=== PATIENT | female | born 1960 | race Caucasian/White ===

== ENCOUNTER 2018-12-11 11:06 | Emergency (ER) | payer MEDICARE ==
[~2018-12-11] VITALS: Ht 167.6 cm; Wt 110.3 kg
[2018-12-11] MEDS ORDERED: LAMO25TA4 (11:16)
[2018-12-11] MEDS ORDERED: GEOD80CA (11:16)
[2018-12-11] MEDS ORDERED: LEVO125T4 (11:16)
[2018-12-11] MEDS ORDERED: OMEP-221 (11:16)
[2018-12-11] MEDS ORDERED: NOVO1INJ4 (11:16)
[2018-12-11] MEDS ORDERED: TRAZ150T90 (11:16)
[2018-12-11] MEDS ORDERED: BD I1MIS10 (11:16)
[2018-12-11] MEDS ORDERED: SIMV40TA2 (11:16)
[2018-12-11] MEDS ORDERED: METF-791 (11:16)
[2018-12-11] MEDS ORDERED: VENL75CA47 (11:16)
[2018-12-11] MEDS ORDERED: LAMI25TA (11:16)
[2018-12-11] MEDS ORDERED: TRAZ300T2 (11:16)
[2018-12-11] MEDS ORDERED: JARD1TAB3 (11:16)
[2018-12-11] MEDS ORDERED: ASPIRIN 81 MG CHEW TABLET PO ONE (11:30)
[2018-12-11 11:53] LABS: BASO % 0.5 % (0.0-1.0); EOS # 0.2 10^3/uL (0.0-0.5); EOS % 2.2 % (0.0-3.0); HEMATOCRIT 40.6 % (36.0-47.0); LYMPH # 3.2 10^3/uL (1.5-5.0); LYMPH % 42.1 % (24.0-44.0); MEAN CORPUSCULAR HEMOGLOBIN 28.7 pg (27.0-33.0); MEAN CORPUSCULAR HGB CONC 34.5 g/dl (32.0-36.5); MEAN CORPUSCULAR VOLUME 83.4 fl (80.0-96.0); MONO # 0.5 10^3/uL (0.0-0.8); MONO % 7.1 % (0.0-5.0); NEUTROPHILS # 3.7 10^3/uL (1.5-8.5); NEUTROPHILS % 47.7 % (36.0-66.0); PLATELET COUNT, AUTOMATED 232 10^3/uL (150-450); RED BLOOD COUNT 4.87 10^6/uL (4.00-5.40); WHITE BLOOD COUNT 7.7 10^3/uL (4.0-10.0)
[2018-12-11 12:03] LABS: PROTHROMBIN TIME 12.9 SECONDS (11.8-14.0)
[2018-12-11 12:04] LABS: PARTIAL THROMBOPLASTIN TIME 24.7 SECONDS (25.0-38.4)
--- NOTE | 2018-12-11 12:21 | REP ---
Chest x-ray: Two views. History: Chest pain. Findings: Monitoring electrodes overlie the chest. Lungs are well inflated and clear. Pleural angles are sharp. Heart is not enlarged. There are degenerative changes in the thoracic spine. Impression: No active disease. Electronically Signed by Lev Ritter MD 12/11/2018 12:13 P
[2018-12-11 12:30] LABS: ALBUMIN 3.7 GM/DL (3.2-5.2); ALT/SGPT 45 U/L (12-78); BILIRUBIN,DIRECT < 0.1 MG/DL (0.0-0.2); BILIRUBIN,TOTAL 0.4 MG/DL (0.2-1.0); BLOOD UREA NITROGEN 19 MG/DL (7-18); CALCIUM LEVEL 9.1 MG/DL (8.5-10.1); CARBON DIOXIDE LEVEL 25 MEQ/L (21-32); CHLORIDE LEVEL 105 MEQ/L (98-107); CK-MB VALUE MASS 3.3 NG/ML (<3.6); CPK CREATINE PHOSPHOKINASE 349 U/L (26-192); CREATININE FOR GFR 1.15 MG/DL (0.55-1.30); GLOMERULAR FILTRATION RATE 51.6 (>51); GLUCOSE, FASTING 102 MG/DL (70-100); LIPASE 119 U/L (73-393); MB/CK RELATIVE INDEX 0.95 (< OR =4); POTASSIUM SERUM 3.9 MEQ/L (3.5-5.1); SODIUM LEVEL 138 MEQ/L (136-145); TOTAL PROTEIN 7.1 GM/DL (6.4-8.2); TROPONIN I < 0.02 NG/ML (< 0.10)
[2018-12-11 17:51] LABS: CK-MB VALUE MASS 3.1 NG/ML (<3.6); CPK CREATINE PHOSPHOKINASE 309 U/L (26-192); TROPONIN I < 0.02 NG/ML (< 0.10)
[2018-12-11 18:01] VITALS: BP 162/70
--- NOTE | 2018-12-11 19:25 | ECGEPIP ---
[place] - ED Test Date: 2018-12-11 Pat Name: PATIENCE LAWRENCE Department: Room: - Gender: Female Clothes Model: Usama WONG : 1960 Requested By: MILAGROS Rock Order Number: [id number] Reading MD: Melvin Dolan Measurements Intervals [place] Rate: 68 P: 27 LA: 180 QRS: -26 QRSD: 109 T: -7 QT: 405 QTc: 431 Interpretive Statements SINUS RHYTHM BORDERLINE LEFT AXIS DEVIATION NONSPECIFIC T WAVE ABNORMALITIES NO PRIORS FOR COMPARISON Electronically Signed on 12-11-2018 19:25:35 EDT by Melvin Dolan
--- NOTE | 2018-12-12 07:49 | ECGEPIP ---
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
== END 2018-12-11 18:10 | disposition home or self-care (01) ==
LOC: M ED 11:06
DX: R69 Illness, unspecified (principal); E11.9 Type 2 diabetes mellitus without complications; I10 Essential (primary) hypertension; K21.9 Gastro-esophageal reflux disease without esophagitis; F31.89 Other bipolar disorder; Z79.4 Long term (current) use of insulin; Z79.899 Other long term (current) drug therapy; Z88.2 Allergy status to sulfonamides; Z88.1 Allergy status to other antibiotic agents; Z88.8 Allergy status to other drugs, medicaments and biological substances

== ENCOUNTER 2019-12-20 15:41 | Inpatient (IN) | payer OTHER, MEDICARE ==
[~2019-12-20] VITALS: Ht 167.6 cm; Wt 94.8 kg
[~2019-12-20 15:41] MED LIST: BD I1MIS10; GEOD80CA; JARD1TAB3 PO; LAMI25TA; LAMO25TA4; LEVO125T4; METF-838 PO; NOVO1INJ4; OMEP-221; SIMV40TA20; TRAZ150T90; TRAZ300T2; VENL75CA47
[2019-12-20] MEDS ORDERED: NS 1,000 ML IV ONE ×3 (16:00→17:45)
[2019-12-20] MEDS ORDERED: DEXTROSE 50% 50 ML SYRINGE IV STA ×2 (16:22→21:14)
[2019-12-20] MEDS ORDERED: DEXTROSE 50% 50 ML SYRINGE As Ordered ONE (16:23)
[2019-12-20 16:29] LABS: BASO % 0.1 % (0.0-1.0); HEMATOCRIT 49.4 % (36.0-47.0); LYMPH # 1.8 10^3/uL (1.5-5.0); LYMPH % 8.7 % (24.0-44.0); MEAN CORPUSCULAR HEMOGLOBIN 27.4 pg (27.0-33.0); MEAN CORPUSCULAR HGB CONC 32.4 g/dl (32.0-36.5); MEAN CORPUSCULAR VOLUME 84.6 fl (80.0-96.0); MONO % 4.7 % (0.0-5.0); NEUTROPHILS # 17.8 10^3/uL (1.5-8.5); NEUTROPHILS % 85.9 % (36.0-66.0); PLATELET COUNT, AUTOMATED 340 10^3/uL (150-450); RED BLOOD COUNT 5.84 10^6/uL (4.00-5.40); WHITE BLOOD COUNT 20.8 10^3/uL (4.0-10.0)
--- NOTE | 2019-12-20 16:34 | REP ---
INDICATION: Drug Overdose. COMPARISON: None. TECHNIQUE: Helical scanning is acquired. 5 mm axial images were reformatted. Coronal MPR images were generated. FINDINGS: Bone window settings demonstrate an intact bony calvarium. There is no evidence of skull fracture or incidental bony calvarial lesion. The visualized paranasal sinuses appear clear. No intraorbital abnormality is seen. On soft tissue window setting images; the lateral, third, and fourth ventricles are normal in size and position. Garcia-white differentiation pattern is normal above and below the tentorium. There are is no evidence of intracranial hemorrhage. No mass, edema, infarction, or midline shift is seen. No extra-axial fluid collection is appreciated. IMPRESSION: Negative noncontrast head CT. <Electronically signed by Bobby Ritter > 12/20/19 [id number]
--- NOTE | 2019-12-20 16:42 | REP ---
INDICATION: Drug Overdose. COMPARISON: None. TECHNIQUE: Helical scanning is acquired and overlapping 2 mm high resolution axial images were generated and reviewed at bone and soft tissue window settings. Coronal and sagittal multiplanar re-formations images are generated. FINDINGS: There is no evidence of cervical spine element fracture. No skull base fracture is seen. Cervical vertebral body heights are preserved. Alignment is normal. Facet joints are normally aligned bilaterally at each cervical level on multiplanar re-formations images. There is no evidence of intraspinal or paraspinal hematoma. No extra vertebral abnormality is seen. There is fairly advanced degenerative discogenic spurring throughout the cervical spine with bridging osteophytes at C2-3 and at C6-7. Fairly large osteophytes coapt each other at the other disc levels. There is posterior osteophytic ridging and disc margin calcification at C C5-6 and C6-7. These contribute to central canal stenosis at these 2 levels. A calcified right paracentral disc protrusion is present at C5-6. There is uncovertebral spurring by on the right at C5-6 and C6-7 and on the left at C6-7. Some vascular calcification is observed. The lung apices are clear. IMPRESSION: No fracture seen. There is fairly extensive degenerative disc disease with large anterior osteophytes formed throughout the cervical spine. Spinal stenosis is noted at the C5-6 and C6-7 due to at calcific disc bulging and on the right at C5-6 there is a focal calcific disc protrusion. Neural foraminal narrowing as above. <Electronically signed by Bobby Ritter > 12/20/19 [id number]
[2019-12-20] MEDS ORDERED: BUPR300T92 PO (16:45)
[2019-12-20] MEDS ORDERED: DULO1CAP6 PO (16:45)
[2019-12-20] MEDS ORDERED: ATOR40TA75 PO (16:45)
[2019-12-20] MEDS ORDERED: ACET-683 PO (16:45)
[2019-12-20] MEDS ORDERED: LOSA100T50 PO (16:45)
[2019-12-20] MEDS ORDERED: DULO30CA9 PO (16:45)
[2019-12-20] MEDS ORDERED: BUPR150T3 PO (16:45)
--- NOTE | 2019-12-20 16:47 | REP ---
INDICATION: Drug Overdose. COMPARISON: 12/11/2018. TECHNIQUE: SINGLE PORTABLE AP VIEW OF THE CHEST WAS PERFORMED. FINDINGS: THERE IS NO ACUTE INFILTRATE OR PULMONARY EDEMA. LUNGS ARE CLEAR. HEART IS NOT SIGNIFICANTLY ENLARGED. MEDIASTINAL SILHOUETTE IS UNREMARKABLE. THE VISUALIZED OSSEOUS STRUCTURES ARE INTACT. IMPRESSION: NO ACUTE PULMONARY DISEASE. <Electronically signed by Jose Garcia > 12/20/19 [id number]
--- NOTE | 2019-12-20 16:50 | REP ---
INDICATION: Drug Overdose. COMPARISON: None. TECHNIQUE: AP view of the pelvis is performed, as well as AP and frogleg views of bilateral hips. FINDINGS: There is no acute fracture or dislocation bilaterally. There is mild arthritic change each hip joint with mild joint space narrowing, subchondral sclerosis and spurring. There are mild tendinous calcifications seen along the greater trochanters bilaterally. There are mild degenerative changes of lower lumbar spine. IMPRESSION: Mild degenerative changes. No acute fracture or dislocation. <Electronically signed by Jose Garcia > 12/20/19 [id number]
[2019-12-20] MEDS ORDERED: [UNRECOGNIZED DRUG - CODE] (16:55)
[2019-12-20] MEDS ORDERED: ALLE1TAB23 PO (16:55)
[2019-12-20] MEDS ORDERED: PHAR25CA PO (16:55)
[2019-12-20] MEDS ORDERED: IBUP200C25 PO (16:55)
[2019-12-20 16:56] LABS: OSMOLALITY SERUM 305 MOSM/KG (275-295)
[2019-12-20 17:14] LABS: ACETAMINOPHEN LEVEL 16.9 UG/ML (10.0-30.0); ALBUMIN 4.1 GM/DL (3.2-5.2); ALT/SGPT 49 U/L (12-78); BILIRUBIN,DIRECT < 0.1 MG/DL (0.0-0.2); BILIRUBIN,TOTAL 0.2 MG/DL (0.2-1.0); BLOOD UREA NITROGEN 35 MG/DL (7-18); CALCIUM LEVEL 9.1 MG/DL (8.5-10.1); CARBON DIOXIDE LEVEL 16 MEQ/L (21-32); CHLORIDE LEVEL 109 MEQ/L (98-107); CPK CREATINE PHOSPHOKINASE 1426 U/L (26-192); CREATININE FOR GFR 2.94 MG/DL (0.55-1.30); ETHYL ALCOHOL (ETHANOL) < 0.003 % (0.000-0.010); GLOMERULAR FILTRATION RATE 17.4 (>51); GLUCOSE, FASTING 32 MG/DL (70-100); POTASSIUM SERUM 7.1 MEQ/L (3.5-5.1); SALICYLATE LEVEL 2.2 MG/DL (5.0-30.0); SODIUM LEVEL 140 MEQ/L (136-145); THYROID STIMULATING HORMONE 0.409 uIU/ML (0.358-3.740); TOTAL PROTEIN 7.8 GM/DL (6.4-8.2)
[2019-12-20] MEDS ORDERED: PIPERACILLIN/TAZOBACTAM SOD 3.375 GM in D5W MINI-BAG PLUS 50 ML IV ONE (17:45)
[2019-12-20] MEDS ORDERED: GLUCOSE 4GM CHEW TABLET PO PRN (18:00)
[2019-12-20] MEDS ORDERED: GLUCAGON INJ 1MG VIAL SC PRN (18:00)
[2019-12-20] MEDS ORDERED: DEXTROSE 50% 50 ML SYRINGE IV PRN (18:00)
[2019-12-20] MEDS ORDERED: LANTINJ4 SC (18:21)
[2019-12-20] MEDS ORDERED: HM I1TAB PO (18:38)
[2019-12-20] MEDS ORDERED: NOVOINJ3 SC (18:38)
--- NOTE | 2019-12-20 18:45 | ECGEPIP ---
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
[2019-12-20] MEDS ORDERED: CALCIUM GLUCONATE 1,000 MG in D5W MINI-BAG PLUS 100 ML IV ONE ×2 (19:00→21:00)
[2019-12-20] MEDS ORDERED: SOD POLYSTYRENE SULFONATE SUSP 30 GM/120 ML ENEMA PR ONE (19:00)
[2019-12-20 19:06] LABS: IONIZED CALCIUM 4.2 MG/DL (4.5-5.3)
[2019-12-20 19:45] LABS: CALCIUM LEVEL 8.4 MG/DL (8.5-10.1); CREATININE FOR GFR 2.9 MG/DL (0.55-1.30); GLOMERULAR FILTRATION RATE 17.7 (>51); POTASSIUM SERUM 6.4 MEQ/L (3.5-5.1)
[2019-12-20] MEDS ORDERED: SODIUM BICARBONATE 150 MEQ in STERILE WATER LITER BAG 1,000 ML IV SCH (20:00)
--- NOTE | 2019-12-20 20:14 | HPEPDOC ---
[facility] Medical History & Physical Date of Admission Dec 20, 2019 Date of Service: Dec 20, 2019 History and Physical CHIEF COMPLAINT: "I took 5 tablets of klonipin." HISTORY OF PRESENT ILLNESS: 59 y/o female brought in after suicide attempt intentionally ingesting 5 tabs of klonipin last night after her of 35 years filed for divorce. She admits to having a previous diagnosis of bipolar disorder but her meds were discontinued by her provider stating that she does not have bipolar. She denies homicidal ideation, n/v/abd pain, changes in vision, diplopia, headache, feevr, cough, sob, chills, dysuria, urgency, fr equency, flank pain, but admits to 5 mos diarrhea and 50 lb unintentional weight loss. She denies polyphagia, polydipsia, UE/LE weakness or paresthesias, headache, rhinorrhea, sore throat, n/v, abd pain. 3-4 loose bm for the past few months w/o blood, mucus, or abd pain. She denies any CKD, NSAID use, sore throat, but admits to decreased oral intake and diarrhea. In the ER, she was found to be hypothermic, wbc 20, lactic acidosis, hypoglycemia,hyperkalemia, acute renal failure, and metabolic acidosis, suicide attempt, depression, and was given empiric zosyn and vanco, IV fluids, ca gluconate, kayexalate, and sodium bicarb iv gtt PAST MEDICAL HISTORY: Obesity, DM, HTN, depression s/p ECT, bipolar, OA, dyslipidemia, hypothyroidism PAST SURGICAL HISTORY: 2 , appendectomy, 2 carpal tunnel surgery SOCIAL HISTORY: quit smoking cigaretts 7years ago, denies ETOH, , filed for divorce yesterday, on disability FAMILY HISTORY: mother CAD in her 70's, father in his 70's CAD ALLERGIES: Please see below. REVIEW OF SYSTEMS: neg 10 point ROS aside from + findings on HPI HOME MEDICATIONS: Please see below. PHYSICAL EXAMINATION: VITAL SIGNS: see below GENERAL APPEARANCE: AAOx3 disheveled HEENT: PERRL EOMI no JVD. dry mucus membranes no pharyngeal erythema CARDIOVASCULAR: S1S2 RRR LUNGS: CTAB ABDOMEN:obese soft nt nd nocvat EXT no c/c/e LABORATORY DATA/IMAGING: See below. 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 She admits to having a previous diagnosis of bipolar disorder but her meds were discontinued by her provider stating that she does not have bipolar. In the ER, she was found to be hypothermic, wbc 20, lactic acidosis, hy poglycemia,hyperkalemia, acute renal failure, and metabolic acidosis, suicide attempt, depression, and was given empiric zosyn and vanco, IV fluids, ca gluconate, kayexalate, and sodium bicarb iv gtt PROBLEMS: Suicide Attempt Depression Intentional Drug overdose with klonipin Lactic Acidosis Acute Rhabdomyolysis Acute Kidney Injury Hyperkalemia Hypothermia Hypoglycemia Sepsis Leukocytosis Fall off bed Abnormal EKG Hypothyroidism DM2 Obesity Bipolar disorder PLAN: inpt admit for 2midnights to PCU, telemetry, bicarb iv gtt, calcium gluconate, kayexalate, serial bmp monitoring until electrolytes are normal. strict i/o , weigh daily and monitor for fluid overload. ivfluid trial. empiric broad spectrum abx, blood cx, cxr negative. psych consult once medically stable. renal diet, and hypoglycemic protocol. compression stockings for DVT prophylaxis. sitter 1:1 observation. suicide watch. Vital Signs Vital Signs Date Time Temp Pulse Resp B/P (MAP) Pulse Ox O2 Delivery O2 Flow Rate FiO2 12/20/19 18:07 96.7 12/20/19 17:45 85 165/79 (107) 97 12/20/19 17:42 16 Laboratory Data Labs 24H Laboratory Tests 2 12/20/19 15:55: Immature Granulocyte % (Auto) 0.6, Neutrophils (%) (Auto) 85.9H, Lymphocytes (%) (Auto) 8.7L, Monocytes (%) (Auto) 4.7, Eosinophils (%) (Auto) 0.0, Basophils (%) (Auto) 0.1, Neutrophils # (Auto) 17.8H, Lymphocytes # (Auto) 1.8, Monocytes # (A uto) 1.0H, Eosinophils # (Auto) 0.0, Basophils # (Auto) 0.0, Nucleated Red Blood Cells % (auto) 0.0, Anion Gap 15, Glomerular Filtration Rate 17.4L, Osmolality 305H, Calcium Level 9.1, Total Bilirubin 0.2, Direct Bilirubin < 0.1, Aspartate Amino Transf (AST/SGOT) 48H, Alanine Aminotransferase (ALT/SGPT) 49, Alkaline Phosphatase 84, Total Creatine Kinase 1426H, Total Protein 7.8, Albumin 4.1, Albumin/Globulin Ratio 1.1L, Thyroid Stimulating Hormone (TSH) 0.409, Salicylates Level 2.2L, Acetaminophen Level 16.9, Ethyl Alcohol Level < 0.003 12/20/19 16:18: Bedside Glucose (Misc Panel) 33*L 12/20/19 17:45: Bedside Glucose (Misc Panel) 78 12/20/19 17:48: Lactic Acid Level 8.1*H CBC/BMP Laboratory Tests 12/20/19 15:55 Microbiology Microbiology 12/20/19 Blood Culture, Received Pending 12/20/19 Blood Culture, Received Pending Home Medications Scheduled Atorvastatin Calcium (Atorvastatin Calcium) 40 Mg Tablet, 40 MG PO QHS Bupropion HCl (Bupropion Xl) 300 Mg Tab.er.24h, 300 MG PO DAILY TAKES WITH 300MG FOR TOTAL DOSE OF 450MG DAILY Bupropion Hcl (Bupropion Xl) 150 Mg Tab.er.24h, 150 MG PO DAILY TAKES WITH 150MG FOR TOTAL DOSE OF 450MG DAILY Duloxetine Hcl (Duloxetine HCl) 30 Mg Capsule.dr, 30 MG PO DAILY TAKES WITH 60MG FOR TOTAL DOSE OF 90MG DAILY Duloxetine Hcl (Duloxetine HCl) 60 Mg Capsule.dr, 60 MG PO DAILY TAKES WITH 30MG FOR TOTAL DOSE OF 90MG DAILY Empagliflozin (Jardiance) 25 Mg Tablet, 25 MG PO DAILY Fexofenadine HCl (Fexofenadine HCl) 180 Mg Tablet, 180 MG PO DAILY Insulin Aspart (Novolog Flexpen) 100 Unit/1 Ml Insuln.pen, 2 UNITS SC AC Insulin Glargine,Hum.rec.anlog (Lantus Solostar) 100 Unit/1 Ml Insuln.pen, 70 UNITS SC QHS Levothyroxine Sodium (Levothyroxine Sodium) 125 Mcg Tablet, 125 MCG DAILY Losartan Potassium (Losartan Potassium) 100 Mg Tablet, 100 MG PO DAILY Metformin HCl (Metformin HCl ER) 500 Mg Tab.er.24h, 1,000 MG PO BID Omeprazole (Omeprazole) 40 Mg Capsule.dr, 40 MG DAILY Trazodone HCl (Trazodone HCl) 150 Mg Tablet, 150 MG QHS Scheduled PRN Acetaminophen (Acetaminophen) 500 Mg Tablet, 500 MG PO Q6H PRN for PAIN Ibuprofen (Ibuprofen Ib) 200 Mg Tablet, 800 MG PO Q6H PRN for PAIN Allergies Coded Allergies: Sulfa (Sulfonamide Antibiotics) (Verified Allergy, Intermediate, HIVES, 12/20/19) clarithromycin (Verified Allergy, Intermediate, HIVES, 12/20/19) haloperidol (Verified Adverse Reaction, Intermediate, APHASIA, 12/20/19) A-FIB/CHADSVASC A-FIB History Current/History of A-Fib/PAF?: No Current PO Anticoag Therapy: No Age/Risk Factor Scoring CHADSVASC: CHADSVASC Response (Comments) Value Age Risk Factor Age < 65 years old 0 Gender Risk Factor Female 1 Hx of CHF No 0 Hx of HTN Yes 1 Hx of Stroke/TIA/or VTE No 0 Hx of Diabetes Yes 1 Hx of Vascular Disease No 0 Total 3 Treatment Treatment ordered: NONE USAMA QUIÑONEZ MD Dec 20, 2019 18:56
[2019-12-20] MEDS: DEXTROSE 50% 50 ML SYRINGE IV STA ×2 (20:18→21:20)
[2019-12-20] MEDS ORDERED: ACETAMINOPHEN 500 MG TAB PO PRN (20:30)
[2019-12-20 21:30] LABS: ABG BASE EXCESS -13.9 (-2.0-2.0); ABG HCO3 11.2 MEQ/L (22.0-26.0); ABG O2 SATURATION 97.2 % (95.0-99.0); ABG PARTIAL PRESSURE CO2 25.2 mmHg (35.0-45.0); ABG PARTIAL PRESSURE O2 96.6 mmHg (75.0-100.0); ABG STANDARD HCO3 13.9 MEQ/L (22.0-26.0); ABG pH (ARTERIAL) 7.266 UNITS (7.350-7.450)
[2019-12-20] MEDS ORDERED: atenoloL 25 MG TAB PO ONE (21:30)
[2019-12-20] MEDS ORDERED: VANCOMYCIN HCL 1,000 MG, VIAL MATE ADAPTER 1 EACH in D5W 250 ML IV ONE (22:00)
[2019-12-20 22:17] VITALS: BP 168/66
--- NOTE | 2019-12-20 22:26 | REPVR ---
PROCEDURE INFORMATION: Exam: XR Right Shoulder Exam date and time: 12/20/2019 10:17 PM Age: 59 years old Clinical indication: Pain; Shoulder; Right; Additional info: Shoulder trauma TECHNIQUE: Imaging protocol: XR Right shoulder. Views: 1 view. COMPARISON: No relevant prior studies available. FINDINGS: Bones/joints: Normal. Soft tissues: Normal. IMPRESSION: No acute findings. Electronically signed by: Albert Larios On 12/20/2019 22:26:23 PM
[2019-12-20] MEDS: VANCOMYCIN HCL 1,000 MG, VIAL MATE ADAPTER 1 EACH in D5W 250 ML IV SCH (22:44)
[2019-12-20] MEDS ORDERED: SOD POLYSTYRENE SULFONATE SUSP 15 GM/60 ML UD PO ONE (23:00)
[2019-12-20] MEDS: ATORVASTATIN 20 MG TAB PO SCH (23:02)
[2019-12-20] MEDS: LIDOCAINE 5% (LIDODERM) PATCH TD SCH (23:03)
[2019-12-20 23:24] LABS: ALBUMIN 3.6 GM/DL (3.2-5.2); BILIRUBIN,TOTAL 0.4 MG/DL (0.2-1.0); CALCIUM LEVEL 8.2 MG/DL (8.5-10.1); CREATININE FOR GFR 2.7 MG/DL (0.55-1.30); GLOMERULAR FILTRATION RATE 19.2 (>51); MAGNESIUM LEVEL 1.9 MG/DL (1.8-2.4); POTASSIUM SERUM 7.1 MEQ/L (3.5-5.1); TOTAL PROTEIN 7.9 GM/DL (6.4-8.2)
[2019-12-21] VITALS: BP 160/64
[2019-12-21 00:07] LABS: AMPHETAMINES LEVEL URINE NEGATIVE (NEGATIVE); BARBITURATES URINE NEGATIVE (NEGATIVE); BENZODIAZEPINES URINE NEGATIVE (NEGATIVE); CANNABINOIDS URINE NEGATIVE (NEGATIVE); COCAINE METABOLITE URINE NEGATIVE (NEGATIVE); METHADONE URINE NEGATIVE (NEGATIVE); OPIATES URINE NEGATIVE (NEGATIVE); PHENCYCLIDINE URINE NEGATIVE (NEGATIVE)
[2019-12-21] MEDS: SODIUM BICARBONATE 150 MEQ in D5W 1,000 ML IV SCH ×3 (01:05→08:30)
[2019-12-21] MEDS: PIPERACILLIN/TAZOBACTAM SOD 2.25 GM in D5W MINI-BAG PLUS 50 ML IV SCH ×4 (01:06→20:20)
[2019-12-21] MEDS ORDERED: PIPERACILLIN/TAZOBACTAM SOD 3.375 GM in D5W MINI-BAG PLUS 50 ML IV SCH (02:00)
[2019-12-21] MEDS ORDERED: ACETYLCYSTEINE IV ONE ×2 (03:00→04:00)
[2019-12-21] MEDS ORDERED: D5W IV ONE ×2 (03:00→04:00)
--- NOTE | 2019-12-21 03:52 | IPNPDOC ---
Date Seen The patient was seen on 12/21/19. Progress Note Interm Progress Note Night resident called regarding patient indicating that she took several other medications that she did not disclose to ER provider. Patient stated that she took a large quantity of Jardiance, metformin, and her insulin. Additionally she stated that she took a half a bottle of Tylenol. Tylenol level was 16.9 with mild elevation in AST. Poison Control was contacted and case was discussed with Nutrition Specialist. Given patients poor and unclear history recommendations were made to start acetylcysteine with follow-up on acetaminophen level and CMP. If stabilized then acetylcysteine can be discontinued. VS, I&O, 24H, Fishbone Vital Signs/I&O Vital Signs Date Time Temp Pulse Resp B/P (MAP) Pulse Ox O2 Delivery O2 Flow Rate FiO2 12/21/19 00:00 98.5 97 18 160/64 (96) 98 Room Air I&O- Last 24 Hours up to 6 AM 12/21/19 06:00 Intake Total 2900 ml Output Total 650 ml Balance 2250 ml Laboratory Data 24H LABS Laboratory Tests 2 12/20/19 15:55: Immature Granulocyte % (Auto) 0.6, Neutrophils (%) (Auto) 85.9H, Lymphocytes (%) (Auto) 8.7L, Monocytes (%) (Auto) 4.7, Eosinophils (%) (Auto) 0.0, Basophils (%) (Auto) 0.1, Neutrophils # (Auto) 17.8H, Lymphocytes # (Auto) 1.8, Monocytes # (Auto) 1.0H, Eosinophils # (Auto) 0.0, Basophils # (Auto) 0.0, Nucleated Red Blood Cells % (auto) 0.0, Anion Gap 15, Glomerular Filtration Rate 17.4L, Osmolality 305H, Calcium Level 9.1, Total Bilirubin 0.2, Direct Bilirubin < 0.1, Aspartate Amino Transf (AST/SGOT) 48H, Alanine Aminotransferase (ALT/SGPT) 49, Alkaline Phosphatase 84, Total Creatine Kinase 1426H, Total Protein 7.8, Albumin 4.1, Albumin/Globulin Ratio 1.1L, Thyroid Stimulating Hormone (TSH) 0.409, Salicylates Level 2.2L, Acetaminophen Level 16.9, Ethyl Alcohol Level < 0.003 12/20/19 16:18: Bedside Glucose (Misc Panel) 33*L 12/20/19 17:45: Bedside Glucose (Misc Panel) 78 12/20/19 17:48: Lactic Acid Level 8.1*H 12/20/19 18:59: Anion Gap 12, Glomerular Filtration Rate 17.7L, Calcium Level 8.4L, Whole Blood Ionized Calcium 4.2L, Magnesium Level 2.0 12/20/19 21:11: Bedside Glucose (Misc Panel) 41L 12/20/19 21:24: Blood Gas Bicarbonate Standard 13.9L, Arterial Blood pH 7.266L, Arterial Blood Partial Pressure CO2 25.2L, Arterial Blood Partial Pressure O2 96.6, Arterial Blood Total CO2 12.0L, Arterial Blood HCO3 11.2L, Arterial Blood Base Excess - 13.9L, Arterial Blood Oxygen Saturation 97.2 12/20/19 21:51: Bedside Glucose (Misc Panel) 100 12/20/19 22:40: Anion Gap 12, Glomerular Filtration Rate 19.2L, Lactic Acid Followup at 4 Hours 6.9*H, Calcium Level 8.2L, Magnesium Level 1.9, Total Bilirubin 0.4#, Aspartate Amino Transf (AST/SGOT) 68H, Alanine Aminotransferase (ALT/SGPT) 52, Alkaline Phosphatase 76, Total Protein 7.9, Albumin 3.6, Albumin/Globulin Ratio 0.8L 12/20/19 22:42: Whole Blood Ionized Calcium 4.0L 12/20/19 23:22: Urine Color STRAW, Urine Appearance HAZY, Urine pH 5.0, Urine Specific [place] 1.009, Urine Protein NEGATIVE, Urine Glucose (UA) 3+H, Urine Ketones NEGATIVE, Urine Blood 2+H, Urine Nitrite NEGATIVE, Urine Bilirubin NEGATIVE, Urine Urobilinogen 0.2, Urine Leukocyte Esterase NEGATIVE, Urine WBC (Auto) 2, Urine RBC (Auto) 1, Urine Hyaline Casts (Auto) 0, Urine Bacteria (Auto) NEGATIVE, Urine Squamous Epithelial Cells 0, Urine Amorphous Sediment SMALLH, Urine Mucus (Auto) SMALL, Urine Sperm (Auto) , Urine Opiates Screen NEGATIVE, Urine Methadone Screen NEGATIVE, Urine Barbiturates Screen NEGATIVE, Urine Phencyclidine Screen NEGATIVE, Urine Amphetamines Screen NEGATIVE, Urine Benzodiazepines Screen NEGATIVE, Urine Cocaine Metabolite Screen NEGATIVE, Urine Cannabinoids Screen NEGATIVE 12/21/19 00:27: Bedside Glucose (Misc Panel) 154H 12/21/19 03:36: Bedside Glucose (Misc Panel) 208H CBC/BMP Laboratory Tests 12/20/19 15:55 12/20/19 18:59 12/20/19 22:40 Microbiology Microbiology 12/20/19 Blood Culture, Received Pending 12/20/19 Blood Culture, Received Pending WILLIAM WEBSTER DO Dec 21, 2019 03:52
[2019-12-21 04:00] VITALS: BP 158/78
[2019-12-21] MEDS: LEVOTHYROXINE 125MCG TABLET (0.125MG) PO SCH (05:20)
[2019-12-21] MEDS ORDERED: SOD POLYSTYRENE SULFONATE SUSP 15 GM/60 ML UD PO ONE (06:00)
[2019-12-21] MEDS ORDERED: CALCIUM GLUCONATE 1,000 MG in D5W MINI-BAG PLUS 100 ML IV ONE (06:00)
--- NOTE | 2019-12-21 06:44 | REPVR ---
PROCEDURE INFORMATION: Exam: XR Chest, 1 View Exam date and time: 12/21/2019 6:24 AM Age: 59 years old Clinical indication: Shortness of breath; Additional info: Drug overdose SOB TECHNIQUE: Imaging protocol: XR of the chest Views: 1 view. COMPARISON: [place] PORTABLE CHEST X-RAY 12/20/2019 4:23 PM FINDINGS: Lungs: No acute airspace disease. Pleural space: No pleural effusion. Heart/Mediastinum: Cardiac silhouette upper limits of normal in size. Bones/joints: Mild degenerative change. IMPRESSION: No acute airspace or pleural disease. Electronically signed by: Nahun Robles On 12/21/2019 06:44:42 AM
[2019-12-21 06:45] LABS: ACETAMINOPHEN LEVEL 2.8 UG/ML (10.0-30.0); ALBUMIN 3.1 GM/DL (3.2-5.2); ALT/SGPT 42 U/L (12-78); BILIRUBIN,DIRECT < 0.1 MG/DL (0.0-0.2); BILIRUBIN,TOTAL 0.4 MG/DL (0.2-1.0); BLOOD UREA NITROGEN 36 MG/DL (7-18); CARBON DIOXIDE LEVEL 18 MEQ/L (21-32); CHLORIDE LEVEL 102 MEQ/L (98-107); CPK CREATINE PHOSPHOKINASE 2807 U/L (26-192); CREATININE FOR GFR 2.54 MG/DL (0.55-1.30); GLOMERULAR FILTRATION RATE 20.6 (>51); GLUCOSE, FASTING 273 MG/DL (70-100); MAGNESIUM LEVEL 1.6 MG/DL (1.8-2.4); POTASSIUM SERUM 4.8 MEQ/L (3.5-5.1); SODIUM LEVEL 136 MEQ/L (136-145); TOTAL PROTEIN 6.6 GM/DL (6.4-8.2)
[2019-12-21 06:59] LABS: BASO % 0.2 % (0.0-1.0); HEMATOCRIT 41.3 % (36.0-47.0); LYMPH # 1.7 10^3/uL (1.5-5.0); LYMPH % 8.8 % (24.0-44.0); MEAN CORPUSCULAR HEMOGLOBIN 26.9 pg (27.0-33.0); MEAN CORPUSCULAR HGB CONC 32.7 g/dl (32.0-36.5); MEAN CORPUSCULAR VOLUME 82.3 fl (80.0-96.0); MONO # 1.2 10^3/uL (0.0-0.8); MONO % 6.3 % (0.0-5.0); NEUTROPHILS # 16.3 10^3/uL (1.5-8.5); PLATELET COUNT, AUTOMATED 263 10^3/uL (150-450); RED BLOOD COUNT 5.02 10^6/uL (4.00-5.40); WHITE BLOOD COUNT 19.4 10^3/uL (4.0-10.0)
[2019-12-21] MEDS ORDERED: MAG SULF 1GM/100ML (MAG RUN) 1 GM in IV 1 EA IV ONE ×2 (07:00→09:00)
[2019-12-21 07:04] LABS: HEMOGLOBIN 13.5 g/dl (12.0-15.5)
[2019-12-21 07:10] LABS: INR 1.1; PROTHROMBIN TIME 14.4 SECONDS (12.5-14.3)
[2019-12-21 07:11] LABS: PARTIAL THROMBOPLASTIN TIME 28.1 SECONDS (24.2-38.5)
[2019-12-21 08:00] VITALS: BP 158/85
--- NOTE | 2019-12-21 08:17 | IPNPDOC ---
Date Seen The patient was seen on 12/21/19. Progress Note SUBJECTIVE: denies n/v/abd pain. started on acetadote for acetaminophen toxicity, with normal coag/and slightly increased LFTs. Tele: no peaked T waves. no c/o chest pain sob OBJECTIVE: PHYSICAL EXAMINATION: VITAL SIGNS: see below GENERAL APPEARANCE: AAOx3 disheveled answring questions appropriately no respiratory distress HEENT: PERRL EOMI no JVD. dry mucus membranes no pharyngeal erythema CARDIOVASCULAR: S1S2 RRR LUNGS: diminished no rales ABDOMEN:obese soft nt nd nocvatenderness no rebound EXT no c/c/e LABORATORY DATA/IMAGING STUDIES/MICROBIOLOGY: SEE BELOW ASSESSMENT; 59 y/o female brought in after suicide attempt intentionally ingesting 5 tabs of klonipin last night after her of 35 years filed for divorce. She admits to having a previous diagnosis of bipolar disorder but her meds were discontinued by her provider stating that she does not have bipolar. In the ER, she was found to be hypothermic, wbc 20, lactic acidosis, hypoglycemia,hyperkalemia, acute renal failure, and metabolic acidosis, suicide attempt, depression, and was given empiric zosyn and vanco, IV fluids, ca gluconate, kayexalate, and sodium bicarb iv gtt PROBLEMS: Suicide Attempt Depression Intentional Drug overdose with klonipin, acetaminophen Lactic Acidosis Acute Metabolic acidosis due to JOE Acute Rhabdomyolysis Acute Kidney Injury due to NSAID, lisinopril use, diarrhea, decreased oral intake Hyperkalemia,resolved Hypothermia,resolved Hypoglycemia,resolved Reactive Leukocytosis r/o infection Mechanical fall, no fractures on Xrays Abnormal EKG with LAD, IVCD Hypothyroidism DM2 Obesity Bipolar disorder Hypomagnesemia hypocalcemia poor iv access metformin/insulin-induced hypoglycemia PLAN: overnight, pt admitted to od on metformin, insulin, and tylenol. continue q6hrs electrolyte monitoring, telemetry and corrected electrolytes with iv ca gluconate and iv mg. still not to baseline creatinine and will continue bicarb iv gtt until noon mp. defer to poison control re: acetadote. ivfluids for rhabdo. hypoglycemia improved with gtt. on empiric abx, but no source, may be reactive leukocytosis. blood cx, cxr, ua are all negative. dc abx once wbc normalm, and cultures negative. no abd c/o to necessitate imaging. may transfer to [facility]. strict i/o. renal us. picc line for iv abx (2-vanco zosyn), iv bicarb gtt, and iv electrolyte replacements, and D5 for hypoglycemia VS, I&O, 24H, Fishbone Vital Signs/I&O Vital Signs Date Time Temp Pulse Resp B/P (MAP) Pulse Ox O2 Delivery O2 Flow Rate FiO2 12/21/19 08:00 98.2 95 18 158/85 (109) 96 Room Air I&O- Last 24 Hours up to 6 AM 12/21/19 06:00 Intake Total 3800 ml Output Total 2150 ml Balance 1650 ml Laboratory Data 24H LABS Laboratory Tests 2 12/20/19 15:55: Immature Granulocyte % (Auto) 0.6, Neutrophils (%) (Auto) 85.9H, Lymphocytes (%) (Auto) 8.7L, Monocytes (%) (Auto) 4.7, Eosinophils (%) (Auto) 0.0, Basophils (%) (Auto) 0.1, Neutrophils # (Auto) 17.8H, Lymphocytes # (Auto) 1.8, Monocytes # (Auto) 1.0H, Eosinophils # (Auto) 0.0, Basophils # (Auto) 0.0, Nucleated Red Blood Cells % (auto) 0.0, Anion Gap 15, Glomerular Filtration Rate 17.4L, [place] lity 305H, Calcium Level 9.1, Total Bilirubin 0.2, Direct Bilirubin < 0.1, Aspartate Amino Transf (AST/SGOT) 48H, Alanine Aminotransferase (ALT/SGPT) 49, Alkaline Phosphatase 84, Total Creatine Kinase 1426H, Total Protein 7.8, Albumin 4.1, Albumin/Globulin Ratio 1.1L, Thyroid Stimulating Hormone (TSH) 0.409, Salicylates Level 2.2L, Acetaminophen Level 16.9, Ethyl Alcohol Level < 0.003 12/20/19 16:18: Bedside Glucose (Misc Panel) 33*L 12/20/19 17:45: Bedside Glucose (Misc Panel) 78 12/20/19 17:48: Lactic Acid Level 8.1*H 12/20/19 18:59: Anion Gap 12, Glomerular Filtration Rate 17.7L, Calcium Level 8.4L, Whole Blood Ionized Calcium 4.2L, Magnesium Level 2.0 12/20/19 21:11: Bedside Glucose (Misc Panel) 41L 12/20/19 21:24: Blood Gas Bicarbonate Standard 13.9L, Arterial Blood pH 7.266L, Arterial Blood Partial Pressure CO2 25.2L, Arterial Blood Partial Pressure O2 96.6, Arterial Blood Total CO2 12.0L, Arterial Blood HCO3 11.2L, Arterial Blood Base Excess - 13.9L, Arterial Blood Oxygen Saturation 97.2 12/20/19 21:51: Bedside Glucose (Misc Panel) 100 12/20/19 22:40: Anion Gap 12, Glomerular Filtration Rate 19.2L, Lactic Acid Followup at 4 Hours 6.9*H, Calcium Level 8.2L, Magnesium Level 1.9, Total Bilirubin 0.4#, Aspartate Amino Transf (AST/SGOT) 68H, Alanine Aminotransferase (ALT/SGPT) 52, Alkaline Phosphatase 76, Total Protein 7.9, Albumin 3.6, Albumin/Globulin Ratio 0.8L 12/20/19 22:42: Whole Blood Ionized Calcium 4.0L 12/20/19 23:22: Urine Color STRAW, Urine Appearance HAZY, Urine pH 5.0, Urine Specific [place] 1.009, Urine Protein NEGATIVE, Urine Glucose (UA) 3+H, Urine Ketones NEGATIVE, Urine Blood 2+H, Urine Nitrite NEGATIVE, Urine Bilirubin NEGATIVE, Urine Ur obilinogen 0.2, Urine Leukocyte Esterase NEGATIVE, Urine WBC (Auto) 2, Urine RBC (Auto) 1, Urine Hyaline Casts (Auto) 0, Urine Bacteria (Auto) NEGATIVE, Urine Squamous Epithelial Cells 0, Urine Amorphous Sediment SMALLH, Urine Mucus (Auto) SMALL, Urine Sperm (Auto) , Urine Opiates Screen NEGATIVE, Urine Methadone Screen NEGATIVE, Urine Barbiturates Screen NEGATIVE, Urine Phencyclidine Screen NEGATIVE, Urine Amphetamines Screen NEGATIVE, Urine Benzodiazepines Screen NEGATIVE, Urine Cocaine Metabolite Screen NEGATIVE, Urine Cannabinoids Screen NEGATIVE 12/21/19 00:27: Bedside Glucose (Misc Panel) 154H 12/21/19 03:36: Bedside Glucose (Misc Panel) 208H 12/21/19 05:34: Bedside Glucose (Misc Panel) 284H 12/21/19 05:45: Anion Gap 16, Glomerular Filtration Rate 20.6L, Lactic Acid Level 5.2*H, Calcium Level 8.0L, Whole Blood Ionized Calcium 4.0L, Magnesium Level 1.6L, Total Bilirubin 0.4, Direct Bilirubin < 0.1, Aspartate Amino Transf (AST/SGOT) 42H, Alanine Aminotransferase (ALT/SGPT) 42, Alkaline Phosphatase 61, Total Creatine Kinase 2807#H, Total Protein 6.6, Albumin 3.1L, Albumin/Globulin Ratio 0.9L, Ac etaminophen Level 2.8L 12/21/19 06:41: Immature Granulocyte % (Auto) 0.7, Neutrophils (%) (Auto) 84.0H, Lymphocytes (%) (Auto) 8.8L, Monocytes (%) (Auto) 6.3H, Eosinophils (%) (Auto) 0.0, Basophils (%) (Auto) 0.2, Neutrophils # (Auto) 16.3H, Lymphocytes # (Auto) 1.7, Monocytes # (Auto) 1.2H, Eosinophils # (Auto) 0.0, Basophils # (Auto) 0.0, Nucleated Red Blood Cells % (auto) 0.0 12/21/19 06:45: Prothrombin Time 14.4H, Prothromb Time International Ratio 1.10, Activated Partial Thromboplast Time 28.1 CBC/BMP Laboratory Tests 12/20/19 15:55 12/20/19 18:59 12/20/19 22:40 12/21/19 05:45 12/21/19 06:41 Microbiology Microbiology 12/20/19 Blood Culture, Received Pending 12/20/19 Blood Culture, Received Pending USAMA QUIÑONEZ MD Dec 21, 2019 08:14
[2019-12-21] MEDS ORDERED: GLUCAGON INJ 1MG VIAL IV STA (08:22)
--- NOTE | 2019-12-21 08:57 | REP ---
INDICATION: renal failure. COMPARISON: None. TECHNIQUE: Real-time sonographic evaluation of the kidneys is performed. FINDINGS: Renal cortical echogenicity pattern is normal bilaterally and contours are smooth. There is no evidence of hydronephrosis, cyst, mass, or calculus in either kidney. The right kidney measures 12.1 x 5.5 x 4.4 cm. Left renal dimensions are 12.0 x 4.9 x 5.3 cm. The urinary bladder contains a Johnson catheter. IMPRESSION: Normal urinary tract sonography. <Electronically signed by Jose Garcia > 12/21/19 0837
[2019-12-21] MEDS: **NOTE PATIENT COMMENT** MISC XX SCH (09:00)
[2019-12-21] MEDS: amLODIPine 10 MG TAB PO SCH (09:39)
[2019-12-21] MEDS ORDERED: SODIUM BICARBONATE 150 MEQ in D5W 1,000 ML IV SCH ×2 (11:00→12:30)
[2019-12-21 11:43] VITALS: BP 137/78
[2019-12-21 12:32] LABS: IONIZED CALCIUM 4.1 MG/DL (4.5-5.3)
[2019-12-21 12:35] LABS: ABG BASE EXCESS -2.6 (-2.0-2.0); ABG HCO3 20.6 MEQ/L (22.0-26.0); ABG O2 SATURATION 97.5 % (95.0-99.0); ABG PARTIAL PRESSURE CO2 31.3 mmHg (35.0-45.0); ABG PARTIAL PRESSURE O2 94.6 mmHg (75.0-100.0); ABG STANDARD HCO3 22.3 MEQ/L (22.0-26.0); ABG TOTAL CO2 21.6 MEQ/L (22.0-29.0); ABG pH (ARTERIAL) 7.436 UNITS (7.350-7.450)
[2019-12-21 12:50] LABS: MAGNESIUM LEVEL 2.4 MG/DL (1.8-2.4)
[2019-12-21 12:55] LABS: BLOOD UREA NITROGEN 34 MG/DL (7-18); CALCIUM LEVEL 8.6 MG/DL (8.5-10.1); CARBON DIOXIDE LEVEL 21 MEQ/L (21-32); CHLORIDE LEVEL 98 MEQ/L (98-107); CREATININE FOR GFR 2.36 MG/DL (0.55-1.30); GLOMERULAR FILTRATION RATE 22.4 (>51); GLUCOSE, FASTING 327 MG/DL (70-100); POTASSIUM SERUM 3.9 MEQ/L (3.5-5.1); SODIUM LEVEL 136 MEQ/L (136-145)
[2019-12-21] MEDS ORDERED: HumaLOG INSULIN (NovoLOG) PER UNIT SC STA ×2 (13:22→18:13)
[2019-12-21] MEDS ORDERED: LIDOCAINE 1% MDV 20ML VIAL As Ordered ONE (13:28)
[2019-12-21] MEDS: NS 1,000 ML IV SCH ×2 (15:16→23:30)
[2019-12-21 15:49] VITALS: BP_SYST 137; BP_SYST 141; BP_DIAS 78; BP_DIAS 96
[2019-12-21] MEDS ORDERED: SODIUM CHLORIDE 0.9% INJ 10 ML SYR IV PRN (16:30)
[2019-12-21] MEDS: SODIUM CHLORIDE 0.9% INJ 10 ML SYR IV SCH (18:15)
[2019-12-21 18:40] LABS: IONIZED CALCIUM 3.9 MG/DL (4.5-5.3)
[2019-12-21 19:01] LABS: ALBUMIN 2.9 GM/DL (3.2-5.2); BILIRUBIN,DIRECT 0.1 MG/DL (0.0-0.2); BILIRUBIN,TOTAL 0.4 MG/DL (0.2-1.0); CALCIUM LEVEL 7.5 MG/DL (8.5-10.1); CREATININE FOR GFR 1.79 MG/DL (0.55-1.30); GLOMERULAR FILTRATION RATE 30.9 (>51); POTASSIUM SERUM 2.8 MEQ/L (3.5-5.1); TOTAL PROTEIN 5.7 GM/DL (6.4-8.2)
[2019-12-21 19:31] LABS: ALBUMIN 3.1 GM/DL (3.2-5.2); ALT/SGPT 44 U/L (12-78); BILIRUBIN,DIRECT < 0.1 MG/DL (0.0-0.2); BILIRUBIN,TOTAL 0.4 MG/DL (0.2-1.0); TOTAL PROTEIN 6.4 GM/DL (6.4-8.2)
[2019-12-21 20:00] VITALS: BP 167/81
[2019-12-21] MEDS ORDERED: POTASSIUM CHLORIDE 10 MEQ SR TABLET PO ONE (20:00)
[2019-12-21] MEDS: ATORVASTATIN 20 MG TAB PO SCH (20:20)
[2019-12-21] MEDS: LIDOCAINE 5% (LIDODERM) PATCH TD SCH (20:25)
[2019-12-21] MEDS: VANCOMYCIN HCL 1,000 MG, VIAL MATE ADAPTER 1 EACH in D5W 250 ML IV SCH (21:00)
[2019-12-22] VITALS: BP 142/73
[2019-12-22] MEDS: PIPERACILLIN/TAZOBACTAM SOD 2.25 GM in D5W MINI-BAG PLUS 50 ML IV SCH ×2 (02:00→08:00)
[2019-12-22 04:00] VITALS: BP 142/70
[2019-12-22] MEDS: SODIUM CHLORIDE 0.9% INJ 10 ML SYR IV SCH ×2 (06:22→18:17)
[2019-12-22] MEDS: LEVOTHYROXINE 125MCG TABLET (0.125MG) PO SCH (06:22)
[2019-12-22 07:18] LABS: CREATININE FOR GFR 1.39 MG/DL (0.55-1.30); GLOMERULAR FILTRATION RATE 41.3 (>51)
[2019-12-22 07:45] VITALS: BP 130/59
[2019-12-22] MEDS ORDERED: POTASSIUM CHLORIDE 10 MEQ SR TABLET PO ONE ×2 (08:15→15:45)
[2019-12-22] MEDS: **NOTE PATIENT COMMENT** MISC XX SCH (08:52)
[2019-12-22] MEDS: amLODIPine 10 MG TAB PO SCH (08:52)
[2019-12-22 09:10] LABS: BASO % 0.4 % (0.0-1.0); EOS # 0.1 10^3/uL (0.0-0.5); EOS % 1.3 % (0.0-3.0); HEMATOCRIT 35.6 % (36.0-47.0); LYMPH # 2.5 10^3/uL (1.5-5.0); MEAN CORPUSCULAR HGB CONC 32.3 g/dl (32.0-36.5); MEAN CORPUSCULAR VOLUME 83.6 fl (80.0-96.0); MONO # 0.7 10^3/uL (0.0-0.8); MONO % 8.2 % (0.0-5.0); NEUTROPHILS # 4.6 10^3/uL (1.5-8.5); NEUTROPHILS % 58.7 % (36.0-66.0); PLATELET COUNT, AUTOMATED 199 10^3/uL (150-450); RED BLOOD COUNT 4.26 10^6/uL (4.00-5.40); WHITE BLOOD COUNT 7.9 10^3/uL (4.0-10.0)
[2019-12-22 09:17] LABS: HEMOGLOBIN 11.5 g/dl (12.0-15.5)
[2019-12-22] MEDS ORDERED: AMLO1TAB25 PO (09:49)
[2019-12-22] MEDS ORDERED: NS 1,000 ML IV ONE (10:00)
--- NOTE | 2019-12-22 10:14 | IPNPDOC ---
Date Seen The patient was seen on 12/22/19. Progress Note SUBJECTIVE: crying at the bedside. no f/c/dysuria, cough, or sob. OBJECTIVE: PHYSICAL EXAMINATION: VITAL SIGNS: see below GENERAL APPEARANCE: crying in bed HEENT:no jvd moist mmm CARDIOVASCULAR: S1S2 RRR LUNGS: diminished no rales CTAB ABDOMEN:obese soft nt nd nocvatenderness no rebound bazan EXT no c/c/e LABORATORY DATA/IMAGING STUDIES/MICROBIOLOGY: SEE BELOW ASSESSMENT; 59 y/o female brought in after suicide attempt intentionally ingesting 5 tabs of klonipin last night after her of 35 years filed for divorce. She admits to having a previous diagnosis of bipolar disorder but her meds were discontinued by her provider stating that she does not have bipolar. In the ER, she was found to be hypothermic, wbc 20, lactic acidosis, hypoglycemia,hyperkalemia, acute renal failure, and metabolic acidosis, suicide attempt, depression, and was given empiric zosyn and vanco, IV fluids, ca gluconate, kayexalate, and sodium bicarb iv gtt PROBLEMS: Suicide Attempt Depression Intentional Drug overdose with klonipin, acetaminophen,insulin,metformin Lactic Acidosis Acute Metabolic acidosis due to JOE Acute Rhabdomyolysis Acute Kidney Injury due to NSAID, lisinopril use, diarrhea, decreased oral intake Hyperkalemia,resolved Hypothermia,resolved Hypoglycemia,resolved Reactive Leukocytosis r/o infection Mechanical fall, no fractures on Xrays Abnormal EKG with LAD, IVCD Hypothyroidism DM2 Obesity Bipolar disorder Hypomagnesemia,resolved hypokalemia hypocalcemia,resolved poor iv access, s/p picc metformin/insulin-induced hypoglycemia PLAN: still with acute renal failure. dc iv abx. repeat mp and dc bazan. continue ivf until creatinine is normal. once creatinine is normal, may consult psych and transfer to [facility]. stable for medsurg transfer. no tele needed. no acute infec tion. supplement k. encourage ambulation. VS, I&O, 24H, Fishbone Vital Signs/I&O Vital Signs Date Time Temp Pulse Resp B/P (MAP) Pulse Ox O2 Delivery O2 Flow Rate FiO2 12/22/19 08:52 87 130/59 12/22/19 07:45 97.8 18 98 12/22/19 04:00 Room Air I&O- Last 24 Hours up to 6 AM 12/22/19 06:00 Intake Total 2380 ml Output Total 4800 ml Balance -2420 ml Laboratory Data 24H LABS Laboratory Tests 2 12/21/19 12:09: Anion Gap 17H, Glomerular Filtration Rate 22.4L, Lactic Acid Followup at 4 Hours 5.7*H, Calcium Level 8.6, Whole Blood Ionized Calcium 4.1L, Magnesium Level 2.4, Total Bilirubin 0.4, Direct Bilirubin < 0.1, Aspartate Amino Transf (AST/SGOT) 38H, Alanine Aminotransferase (ALT/SGPT) 44, Alkaline Phosphatase 66, Total Protein 6.4, Albumin 3.1L, Albumin/Globulin Ratio 0.9L 12/21/19 12:18: Blood Gas Bicarbonate Standard 22.3, Arterial Blood pH 7.436, Arterial Blood Partial Pressure CO2 31.3L, Arterial Blood Partial Pressure O2 94.6, Arterial Blood Total CO2 21.6L, Arterial Blood HCO3 20.6L, Arterial Blood Base Excess - 2.6L, Arterial Blood Oxygen Saturation 97.5 12/21/19 12:31: Methicillin-Resist S.aureus DNA PCR NOT DETECTED 12/21/19 17:21: Bedside Glucose (Misc Panel) 244H 12/21/19 18:18: Anion Gap 11, Glomerular Filtration Rate 30.9L, Calcium Level 7.5L, Whole Blood Ionized Calcium 3.9L, Magnesium Level 2.0, Total Bilirubin 0.4, Direct Bilirubin 0.1, Aspartate Amino Transf (AST/SGOT) 33, Alanine Aminotransferase (ALT/SGPT) 37, Alkaline Phosphatase 60, Total Protein 5.7L, Albumin 2.9L, Albumin/Globulin Ratio 1.0L 12/21/19 21:48: Lactic Acid Level 2.7*H 12/22/19 00:33: Bedside Glucose (Misc Panel) 144H 12/22/19 06:15: Anion Gap 8, Glomerular Filtration Rate 41.3L, Calcium Level 8.0L, Lactic Acid Followup at 4 Hours 1.1, Total Creatine Kinase 1120H 12/22/19 08:54: Immature Granulocyte % (Auto) 0.4, Neutrophils (%) (Auto) 58.7, Lymphocytes (%) (Auto) 31.0, Monocytes (%) (Auto) 8.2H, Eosinophils (%) (Auto) 1.3, Basophils (%) (Auto) 0.4, Neutrophils # (Auto) 4.6, Lymphocytes # (Auto) 2.5, Monocytes # (Auto) 0.7, Eosinophils # (Auto) 0.1, Basophils # (Auto) 0.0, Nucleated Red Blood Cells % (auto) 0.0 CBC/BMP Laboratory Tests 12/21/19 12:09 12/21/19 18:18 12/22/19 06:15 12/22/19 08:54 Microbiology Microbiology 12/20/19 Blood Culture - Preliminary, Resulted No growth after 24 hours . All specim... 12/20/19 Blood Culture - Preliminary, Resulted No growth after 24 hours . All specim... USAMA QUIÑONEZ MD Dec 22, 2019 10:14
[2019-12-22 12:49] LABS: CREATININE FOR GFR 1.25 MG/DL (0.55-1.30); GLOMERULAR FILTRATION RATE 46.7 (>51); POTASSIUM SERUM 3.1 MEQ/L (3.5-5.1)
--- NOTE | 2019-12-22 15:07 | REP ---
PROCEDURE NAME: PICC LINE INSERTION W/SITERITE CLINICAL INFORMATION: double lumen-iv access for abx,bicarb gtt. COMPARISON: None. PROCEDURE DESCRIPTION: The procedure was performed by RODRIGUEZ Kelley, under the direct supervision of Dr. Garcia. The risks and benefits of the procedure were explained to the patient and an informed consent was obtained both verbally and written. Directly prior to the start of the procedure a formal time-out was completed in the procedure room. The right medial brachial vein was localized using ultrasound guidance. The skin was prepped and draped in sterile fashion. One mL of 1% lidocaine 10 mg/mL was used as a local anesthetic. Using ultrasound guidance the right medial brachial vein was cannulated, and a 0.018 guidewire was inserted and advanced to the level of SVC using fluoroscopic guidance. The needle was removed and a 5.5 [place] dilator and peel-away sheath was inserted over the guidewire. A 5.5 [place] dual lumen catheter was cut to a length of 40 cm. The dilator was removed and the catheter was inserted over the guidewire with the tip ending at the level of the SVC. The peel-away sheath was removed and the catheter was flushed with heparinized saline as per hospital protocol. The catheter was affixed to the skin and a sterile dressing was applied. 0.1 minutes of fluoroscopy time was utilized for this procedure. Some fluoroscopic images are performed with last image hold technology. These images require no additional radiation. The patient tolerated the procedure well and there were no immediate complications. CONCLUSION: Successful PICC line insertion into the right medial brachial vein. <Electronically signed by Ariella Rubio > 12/21/19 [id number] <Electronically signed by Jose Garcia > 12/22/19 0081
[2019-12-22 15:38] VITALS: BP 135/79
[2019-12-22] MEDS: KCL 10MEQ/100ML SWI (KRUN) 10 MEQ in IV 1 EA IV SCH ×4 (16:04→19:27)
[2019-12-22 18:47] LABS: CALCIUM LEVEL 8.1 MG/DL (8.5-10.1); CREATININE FOR GFR 1.08 MG/DL (0.55-1.30); GLOMERULAR FILTRATION RATE 55.3 (>51); POTASSIUM SERUM 3.5 MEQ/L (3.5-5.1)
[2019-12-22 20:00] VITALS: BP 153/72
[2019-12-22] MEDS: LIDOCAINE 5% (LIDODERM) PATCH TD SCH ×2 (20:21→20:27)
[2019-12-22] MEDS: ATORVASTATIN 20 MG TAB PO SCH (20:22)
[2019-12-23] VITALS: BP 160/72
[2019-12-23 04:00] VITALS: BP 143/70
[2019-12-23] MEDS: LEVOTHYROXINE 125MCG TABLET (0.125MG) PO SCH (06:28)
[2019-12-23] MEDS: SODIUM CHLORIDE 0.9% INJ 10 ML SYR IV SCH ×2 (06:28→18:00)
[2019-12-23 06:50] LABS: BLOOD UREA NITROGEN 20 MG/DL (7-18); CALCIUM LEVEL 7.8 MG/DL (8.5-10.1); CARBON DIOXIDE LEVEL 27 MEQ/L (21-32); CHLORIDE LEVEL 108 MEQ/L (98-107); CPK CREATINE PHOSPHOKINASE 647 U/L (26-192); CREATININE FOR GFR 0.94 MG/DL (0.55-1.30); GLOMERULAR FILTRATION RATE > 60.0 (>51); GLUCOSE, FASTING 92 MG/DL (70-100); POTASSIUM SERUM 4.1 MEQ/L (3.5-5.1); SODIUM LEVEL 142 MEQ/L (136-145)
[2019-12-23 08:00] VITALS: BP 177/76
[2019-12-23] MEDS: amLODIPine 10 MG TAB PO SCH (08:50)
[2019-12-23] MEDS: **NOTE PATIENT COMMENT** MISC XX SCH (08:51)
--- NOTE | 2019-12-23 08:54 | ECGEPIP ---
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 Poor precordial R wave progression - due to conduction disturbance Versus body h habitus/pulmonary disease. Nonspecific ST/T wave abnormalities. No significant change from 12/20/19 Electronically Signed on 12-23-2019 8:53:48 EDT by Bakari Bella
--- NOTE | 2019-12-23 10:22 | DS.PDOC ---
Discharge Summary General Date of Admission Dec 20, 2019 at 17:51 Date of Discharge 12/23/19 discharged to [facility] SUICIDE ATTEMPT Discharge Summary PROCEDURES PERFORMED DURING STAY: picc line RN VISITING: Psychiatrist Dr. Gaines DISCHARGE DIAGNOSES: Suicide Attempt Depression Intentional Drug overdose with klonipin, acetaminophen,insulin,metformin Lactic Acidosis Acute Metabolic acidosis due to JOE Acute Rhabdomyolysis Acute Kidney Injury due to NSAID, lisinopril use, diarrhea, decreased oral intake Hyperkalemia,resolved Hypothermia,resolved Hypoglycemia,resolved Reactive Leukocytosis r/o infection Mechanical fall, no fractures on Xrays Abnormal EKG with LAD, IVCD Hypothyroidism DM2 Obesity Bipolar disorder Hypomagnesemia,resolved hypokalemia hypocalcemia,resolved poor iv access, s/p picc metformin/insulin-induced hypoglycemia HISTORY OF PRESENT ILLNESS: 59 y/o female brought in after suicide attempt intentionally ingesting 5 tabs of klonipin last night after her of 35 years filed for divorce. She admits to having a previous diagnosis of bipolar disorder but her meds were disconti nued by her provider stating that she does not have bipolar. In the ER, she was found to be hypothermic, wbc 20, lactic acidosis, hypoglycemia,hyperkalemia, acute renal failure, and metabolic acidosis, suicide attempt, depression, and was given empiric zosyn and vanco, IV fluids, ca gluconate, kayexalate, and sodium bicarb iv gtt HOSPITAL COURSE: Pt disclosed after 6hrs of admission that she also took acetaminophen, insulin and metformin. Per poison control, acetadote was administered, and pt/ptt and acetaminophen/lfts monitored without n/v/abd pain. Her potassium, renal failure, and acidosis resolved with bicarbonate and kayexalate. She was transferred to [facility]. Tele: no tenting or sine wave despite hyperkalemia. renal function returned to normal after ns and previous bicarb iv gtt given. Pt tolerated her diet, and support discontinued. one to one observation with sitter at the bed side provided during her hospital stay. Dr. Gaines was consulted to assist in her psychiatric [facility] admission. DISCHARGE MEDICATIONS: Please see below. ALLERGIES: Please see below. PHYSICAL EXAMINATION ON DISCHARGE: VITAL SIGNS: Please see below. PHYSICAL EXAMINATION: VITAL SIGNS: see below GENERAL APPEARANCE: tearful HEENT:no jvd moist mmm CARDIOVASCULAR: S1S2 RRR LUNGS: diminished no rales CTAB ABDOMEN:obese soft nt nd nocvatenderness no rebound bazan EXT no c/c/e LABORATORY DATA/IMAGING STUDIES/MICROBIOLOGY: SEE BELOW 12/11/2018 CHEST XRAY. TECHNIQUE: SINGLE PORTABLE AP VIEW OF THE CHEST WAS PERFORMED. FINDINGS: THERE IS NO ACUTE INFILTRATE OR PULMONARY EDEMA. LUNGS ARE CLEAR. HEART IS NOT SIGNIFICANTLY ENLARGED. MEDIASTINAL SILHOUETTE IS UNREMARKABLE. THE VISUALIZED OSSEOUS STRUCTURES ARE INTACT. IMPRESSION: NO ACUTE PULMONARY DISEASE. HIP XRAY 12/20/19 FINDINGS: There is no acute fracture or dislocation bilaterally. There is mild arthritic change each hip joint with mild joint space narrowing, subchondral sclerosis and spurring. There are mild tendinous calcifications seen along the greater trochanters bilaterally. There are mild degenerative changes of lower lumbar spine. IMPRESSION: Mild degenerative changes. No acute fracture or dislocation. <Electronically signed by Jose Garcia > 12/20/19 1646 DD: Jose Garcia MD, MD 12/20/19 1645 DT: MM 12/20/19 164 DS: ALICE 12/20/19 1645 12/20/[address] HEAD WITHOUT CONTRAST Bone window settings demonstrate an intact bony calvarium. There is no evidence of skull fracture or incidental bony calvarial lesion. The visualized paranasal sinuses appear clear. No intraorbital abnormality is seen. On soft tissue window setting images; the lateral, third, and fourth ventricles are normal in size and position. Garcia-white differentiation pattern is normal above and below the tentorium. There are is no evidence of intracranial hemorrhage. No mass, edema, infarction, or midline shift is seen. No extra-axial fluid collection is appreciated. IMPRESSION: Negative noncontrast head CT. <Electronically signed by Bobby Ritter > 12/20/[address] CERVICAL SPINE There is no evidence of cervical spine element fracture. No skull base fracture is seen. Cervical vertebral body heights are preserved. Alignment is normal. Facet joints are normally aligned bilaterally at each cervical level on multiplanar re-formations images. There is no evidence of intraspinal or paraspinal hematom a. No extra vertebral abnormality is seen. There is fairly advanced degenerative discogenic spurring throughout the cervical spine with bridging osteophytes at C2-3 and at C6-7. Fairly large osteophytes coapt each other at the other disc levels. There is posterior osteophytic ridging and disc margin calcification at C C5-6 and C6-7. These contribute to central canal stenosis at these 2 levels. A calcified right paracentral disc protrusion is present at C5-6. There is uncovertebral spurring by on the right at C5-6 and C6-7 and on the left at C6-7. Some vascular calcification is observed. The lung apices are clear. IMPRESSION: No fracture seen. There is fairly extensive degenerative disc disease with large anterior osteophytes formed throughout the cervical spine. Spinal stenosis is noted at the C5-6 and C6-7 due to at calcific disc bulging and on the right at C5-6 there is a focal calcific disc protrusion. Neural foraminal narrowing as above. <Electronically signed by Bobby Ritter > 12/20/19 1638 Exam: XR Right Shoulder Exam date and time: 12/20/2019 10:17 PM Age: 59 years old Clinical indication: Pain; Shoulder; Right; Additional info: Shoulder trauma XR Right shoulder. Views: 1 view. COMPARISON: No relevant prior studies available. FINDINGS: Bones/joints: Normal. Soft tissues: Normal. IMPRESSION: No acute findings. Electronically signed by: Albert Larios On 12/20/2019 22:26:23 PM RENAL ULTRASOUND Renal cortical echogenicity pattern is normal bilaterally and contours are smooth. There is no evidence of hydronephrosis, cyst, mass, or calculus in either kidney. The right kidney measures 12.1 x 5.5 x 4.4 cm. Left renal dimensions are 12.0 x 4.9 x 5.3 cm. The urinary bladder contains a Bazan catheter. IMPRESSION: Normal urinary tract sonography. <Electronically signed by Jose Garcia > 12/21/19 0853 TIME SPENT ON DISCHARGE: 30MIN Vital Signs/I&Os Vital Signs Date Time Temp Pulse Resp B/P (MAP) Pulse Ox O2 Delivery O2 Flow Rate FiO2 12/23/19 08:50 93 177/76 12/23/19 08:00 97.2 18 99 Room Air I&O- Last 24 Hours up to 6 AM 12/23/19 06:00 Intake Total 890 ml Output Total 3750 ml Balance -2860 ml Laboratory Data Labs 24H Laboratory Tests 2 12/22/19 11:48: Anion Gap 7L, Glomerular Filtration Rate 46.7L, Calcium Level 8.0L 12/22/19 17:51: Anion Gap 6L, Glomerular Filtration Rate 55.3, Calcium Level 8.1L 12/23/19 06:00: Anion Gap 7L, Glomerular Filtration Rate > 60.0, Calcium Level 7.8L, Total Creatine Kinase 647H 12/23/19 06:08: Bedside Glucose (Misc Panel) 98 CBC/BMP Laboratory Tests 12/22/19 11:48 12/22/19 17:51 12/23/19 06:00 FSBS Laboratory Tests Test 12/23/19 06:08 Range/Units Bedside Glucose (Misc Panel) 98 70-105 MG/DL Microbiology Microbiology 12/20/19 Blood Culture - Preliminary, Resulted No Growth after 48 hours. All Specime... 12/20/19 Blood Culture - Preliminary, Resulted No Growth after 48 hours. All Specime... Discharge Medications Scheduled Amlodipine Besylate (Amlodipine Besylate) 10 Mg Tablet, 10 MG PO DAILY Atorvastatin Calcium (Atorvastatin Calcium) 40 Mg Tablet, 40 MG PO QHS, (Reported) Fexofenadine HCl (Fexofenadine HCl) 180 Mg Tablet, 180 MG PO DAILY, (Reported) Levothyroxine Sodium (Levothyroxine Sodium) 125 Mcg Tablet, 125 MCG DAILY, (Reported) Omeprazole (Omeprazole) 40 Mg Capsule.dr, 40 MG DAILY, (Reported) Scheduled PRN Acetaminophen (Acetaminophen) 500 Mg Tablet, 500 MG PO Q6H PRN for PAIN, (Reported) Allergies Coded Allergies: Sulfa (Sulfonamide Antibiotics) (Verified Allergy, Intermediate, HIVES, 12/20/19) clarithromycin (Verified Allergy, Intermediate, HIVES, 12/20/19) haloperidol (Verified Adverse Reaction, Intermediate, APHASIA, 12/20/19) USAMA QUIÑONEZ MD Dec 23, 2019 10:22
[2019-12-23] MEDS ORDERED: PROMETHAZINE INJ 25 MG/ML VIAL (J2550) IV ONE (10:30)
[2019-12-23] MEDS ORDERED: oxyCODONE 5MG TAB PO ONE (10:30)
[2019-12-23] MEDS ORDERED: MORPHINE 2 MG/ML 1ML VIAL (J2270) IV ONE (10:30)
[2019-12-23] MEDS ORDERED: **hydrALAZINE** 10 MG TAB PO ONE (11:00)
[2019-12-23 11:25] VITALS: BP 155/73
[2019-12-23 12:00] VITALS: BP 163/76
[2019-12-23] MEDS ORDERED: **hydrALAZINE** 10 MG TAB PO SCH (22:00)
== END 2019-12-23 20:23 | DRG 812 ==
LOC: M ED 15:41 → M ED INP 17:51 → M PCU 22:07
PROVIDERS: ADMIT General Practice; ATTEND General Practice
PROC: 02HV33Z Insertion of Infusion Device into Superior Vena Cava, Percutaneous Approach (ICD-10-PCS; principal; 2019-12-21 15:00)
DX: T39.1X2A Poisoning by 4-Aminophenol derivatives, intentional self-harm, initial encounter (principal); N17.9 Acute kidney failure, unspecified; E87.2 Acidosis; M62.82 Rhabdomyolysis; E11.649 Type 2 diabetes mellitus with hypoglycemia without coma; E83.42 Hypomagnesemia; F31.9 Bipolar disorder, unspecified; E87.5 Hyperkalemia; E83.51 Hypocalcemia; T38.3X2A Poisoning by insulin and oral hypoglycemic [antidiabetic] drugs, intentional self-harm, initial encounter; R19.7 Diarrhea, unspecified; E03.9 Hypothyroidism, unspecified; E87.6 Hypokalemia; R68.0 Hypothermia, not associated with low environmental temperature; D72.829 Elevated white blood cell count, unspecified; E66.9 Obesity, unspecified; Z79.899 Other long term (current) drug therapy; Z88.2 Allergy status to sulfonamides; Z88.8 Allergy status to other drugs, medicaments and biological substances; Z79.4 Long term (current) use of insulin

== ENCOUNTER 2019-12-23 18:42 | Inpatient (IN) | payer MEDICARE, OTHER ==
[~2019-12-23] VITALS: Ht 167.6 cm; Wt 93.5 kg
[~2019-12-23 18:42] MED LIST changes: +ACET-683 PO; +ALLE1TAB23 PO; +AMLO1TAB25 PO; +ATOR40TA75 PO; +BUPR150T3 PO; +BUPR300T92 PO; +DULO1CAP6 PO; +DULO30CA9 PO; +HM I1TAB PO; +IBUP200C25 PO; +LANTINJ4 SC; +LOSA100T50 PO; +NOVOINJ3 SC; +PHAR25CA PO; +[UNRECOGNIZED DRUG - CODE]
[2019-12-23] MEDS ORDERED: MOM 30ML SUSPENSION UDC PO PRN (19:00)
[2019-12-23] MEDS ORDERED: MAALOX 30 ML SUSP *UDC PO PRN (19:00)
[2019-12-23] MEDS: **NOTE PATIENT COMMENT** MISC XX SCH (21:00)
[2019-12-23 21:17] VITALS: BP 134/76
[2019-12-23] MEDS: traZODone 50 MG TAB PO PRN (21:36)
[2019-12-23] MEDS: **hydrALAZINE** 10 MG TAB PO SCH (21:36)
[2019-12-23] MEDS: ATORVASTATIN 20 MG TAB PO SCH (21:36)
[2019-12-24] MEDS: ACETAMINOPHEN TAB 650MG DOSE (2X325MG) PO PRN ×2 (03:58→14:22)
[2019-12-24] MEDS: LEVOTHYROXINE 125MCG TABLET (0.125MG) PO SCH (06:30)
[2019-12-24] MEDS: **hydrALAZINE** 10 MG TAB PO SCH (06:30)
[2019-12-24 06:38] VITALS: BP 142/80
[2019-12-24] MEDS: LIDOCAINE 5% (LIDODERM) PATCH TD SCH (08:43)
[2019-12-24] MEDS ORDERED: amLODIPine 10 MG TAB PO SCH (09:00)
[2019-12-24] MEDS ORDERED: DEXTROSE 50% 50 ML SYRINGE IV PRN (11:00)
[2019-12-24] MEDS ORDERED: GLUCAGON INJ 1MG VIAL SC PRN (11:00)
[2019-12-24] MEDS ORDERED: GLUCOSE 4GM CHEW TABLET PO PRN (11:00)
[2019-12-24] MEDS: HumaLOG INSULIN (NovoLOG) PER UNIT SC SCH ×3 (12:13→20:18)
[2019-12-24] MEDS: LEVEMIR (INSULIN DETEMIR) 1 UNITS/0.01ML SC SCH ×2 (12:15→20:18)
[2019-12-24] MEDS: OMEPRAZOLE 20 MG CAP PO SCH (12:16)
[2019-12-24] MEDS: LOSARTAN 50MG TABLET PO SCH (12:16)
--- NOTE | 2019-12-24 12:51 | MHHPEPDOC ---
[facility] History & Physical History and Physical DATE OF ADMISSION: Dec 23, 2019 at 18:42 Subjective HPI/Psych ROS: The patient, a 59-year-old woman with a long history of depression presents after overdosing on multiple medications. The patient reports that she was recently served with a divorce decree and began contemplating killing herself. She reported that she overdosed quite quickly, and that this is a pattern for her. She reports going back 10 years that she is had signicant depression with multiple failed treatments inpatient treatments. She reports increasing low mood, loss of interest, insomnia and hopelessness. Screens negative for psychotic disorders, questionable bipolar symptoms of elevated mood, but unclear in the setting of multiple low mood episodes. MEDICAL/PSYCHIATRIC HISTORY: Previous diagnosis of bipolar, recently revised to depression, tried on multiple medications including Lamictal, Effexor, trazodone, was last admitted several months ago for a similar overdose. FAMILY HISTORY: Reports a history of depression in both parents SOCIAL HISTORY - OCCUPATION: Unsecure, currently in the process of being SOCIAL HISTORY - LIVING SITUATION: living with adult daughter, recently was living in [place] with other adult daughter, broke up with on July 26 SOCIAL HISTORY- ADDICTION: Denies Objective General: Well dressed with good hygiene Speech: Spontaneous and fluid Thought processes: Linear and logical Thought content: hopeless Abstract reasoning, and computation: Intact Description of associations: Intact Description of abnormal or psychotic thoughts: denies SI at this time Judgment: fair Insight: poor Orientation: Alert and orientated 3 Recent and remote memory: Intact Attention span and concentration: Intact Fund of knowledge: Adequate Mood: "okay" Affect: dysthymic, constricted Assessment Major depressive disorder, recurrent, severe without psychotic symptoms Plan Will try patient on Abilify 2 mg nightly, due to concern bipolar depression versus unipolar depression, extraordinarily high risk for suicide Treatment priorities are 1. Risk for suicide 2.. Ineffective coping Stay for 2-7 days. Vital Signs Vital Signs Date Time Temp Pulse Resp B/P (MAP) Pulse Ox O2 Delivery O2 Flow Rate FiO2 12/24/19 12:16 142/88 12/24/19 08:43 96 12/24/19 06:38 99.0 14 98 Room Air Laboratory Data 24H Labs Laboratory Tests 2 12/24/19 12:10: Bedside Glucose (Misc Panel) 178H FSBS Laboratory Tests Test 12/24/19 12:10 Range/Units Bedside Glucose (Misc Panel) 178 70-105 MG/DL Medications Scheduled Amlodipine Besylate (Amlodipine Besylate) 10 Mg Tablet, 10 MG PO DAILY Atorvastatin Calcium (Atorvastatin Calcium) 40 Mg Tablet, 40 MG PO QHS, (Reported) Fexofenadine HCl (Fexofenadine HCl) 180 Mg Tablet, 180 MG PO DAILY, (Reported) Levothyroxine Sodium (Levothyroxine Sodium) 125 Mcg Tablet, 125 MCG DAILY, (Reported) Omeprazole (Omeprazole) 40 Mg Capsule.dr, 40 MG DAILY, (Reported) Scheduled PRN Acetaminophen (Acetaminophen) 500 Mg Tablet, 500 MG PO Q6H PRN for PAIN, (Reported) Allergies Coded Allergies: Sulfa (Sulfonamide Antibiotics) (Verified Allergy, Intermediate, HIVES, 12/20/19) clarithromycin (Verified Allergy, Intermediate, HIVES, 12/20/19) haloperidol (Verified Adverse Reaction, Intermediate, APHASIA, 12/20/19) A-FIB/CHADSVASC A-FIB History Current/History of A-Fib/PAF?: No ALEJANDRO CALL DO Dec 24, 2019 12:51
[2019-12-24 16:17] VITALS: BP 139/88
[2019-12-24] MEDS: metFORMIN (GLUCOPHAGE) 1000 MG TABLET PO SCH (17:10)
--- NOTE | 2019-12-24 18:44 | HPEPDOC ---
[facility] Medical History & Physical Date of Admission Dec 24, 2019 Date of Service: Dec 24, 2019 Other Provider Does not have a PCP in this area, will need to establish with one upon discharge. History and Physical CHIEF COMPLAINT: Suicide attempt HISTORY OF PRESENT ILLNESS: And patient is being transferred from the hospital to [facility]. She was hospitalized on 12/20/2019 because of suicide attempt. She intentionally ingested Klonopin, acetaminophen, insulin, and metformin after her of 35 years filed for divorce. Now that she is medically stable, she is being transferred to the inpatient mental health unit for psychiatric care. PAST MEDICAL HISTORY: Suicide attempt Depression Hypothyroidism Diabetes mellitus type 2 Obesity Bipolar disorder GERD PAST SURGICAL HISTORY: 2 Appendectomy Carpal tunnel surgery 2 SOCIAL HISTORY: Quit smoking approximately 7 years ago, denies alcohol use, denies illicit drug use. just filed for divorce. FAMILY HISTORY: Both parents had coronary artery disease and in their 70s REVIEW OF SYSTEMS: Constitutional: Patient denies fevers, chills, night sweats, recent weight gain/loss. HEENT: Patient denies blurred or double vision, transient visual disturbances, postnasal drip, epistaxis, sore throat, difficulty chewing or swallowing food. Cardiovascular: Patient denies chest discomfort/pain, palpitations, exertional dyspnea, orthopnea, edema of the extremities, claudication. Respiratory: Patient denies dyspnea, wheezing, cough, hemoptysis, sputum production. Gastrointestinal: Patient denies nausea, vomiting, diarrhea, constipation, abdominal pain, melena, hematochezia, hematemesis, jaundice. PHYSICAL EXAMINATION: General: Awake, alert, oriented 3. She is in no acute distress at this time. HEENT: Head normocephalic atraumatic, conjunctiva are pink, sclera are nonicteric, buccal mucosa is pink and moist with no lesions in the oropharynx. Hearing is grossly intact to conversation. Respiratory: Clear to auscultation bilaterally with no wheezes, rales, or rhonchi. Cardiovascular: Regular rate and rhythm, with no rubs, gallops, or murmur. Abdomen: Soft, nontender, nondistended, no hepatosplenomegaly appreciated. Bowel sounds present. Extremities: 2+ pulses in the radial and dorsalis pedis bilaterally. No evidence of clubbing or cyanosis. ASSESSMENT: Suicide attempt in the setting of depression, bipolar disorder, and significant emotional stress Diabetes mellitus type 2 Hypothyroidism Hypertension GERD PLAN: Will defer management of psychiatric issues to the psych team. On her last admission apparently there is some difficulty in determining what her home medications were, especially because she is not from this area, but recently moved appear to be with her daughter. Per report from the patient, and she appears to be in excellent historian, Her home medications for her chronic medical issues are as follows: Metformin 1000 mg twice a day Lantus 70 units daily Novolin 30/70 twice a day Omeprazole 40 mg daily Losartan 100 mg daily Levothyroxine - she cannot remember the dose Since she has not been eating as much while inpatient, I will put her on Levemir 30 units twice a day, metformin 1000 mg twice a day, sliding scale short acting insulin before meals and at bedtime, omeprazole 40 mg daily, losartan 100 mg daily, Synthroid 125 MCG daily. Vital Signs Vital Signs Date Time Temp Pulse Resp B/P (MAP) Pulse Ox O2 Delivery O2 Flow Rate FiO2 12/24/19 16:17 98.2 87 18 139/88 (105) 12/24/19 06:38 98 Room Air Laboratory Data Labs 24H Laboratory Tests 2 12/24/19 12:10: Bedside Glucose (Misc Panel) 178H 12/24/19 17:05: Bedside Glucose (Misc Panel) 244H Home Medications Scheduled Amlodipine Besylate (Amlodipine Besylate) 10 Mg Tablet, 10 MG PO DAILY Atorvastatin Calcium (Atorvastatin Calcium) 40 Mg Tablet, 40 MG PO QHS Fexofenadine HCl (Fexofenadine HCl) 180 Mg Tablet, 180 MG PO DAILY Levothyroxine Sodium (Levothyroxine Sodium) 125 Mcg Tablet, 125 MCG DAILY Omeprazole (Omeprazole) 40 Mg Capsule.dr, 40 MG DAILY Scheduled PRN Acetaminophen (Acetaminophen) 500 Mg Tablet, 500 MG PO Q6H PRN for PAIN Allergies Coded Allergies: Sulfa (Sulfonamide Antibiotics) (Verified Allergy, Intermediate, HIVES, 12/20/19) clarithromycin (Verified Allergy, Intermediate, HIVES, 12/20/19) haloperidol (Verified Adverse Reaction, Intermediate, APHASIA, 12/20/19) A-FIB/CHADSVASC A-FIB History Current/History of A-Fib/PAF?: No KIM GUERRERO DO Dec 24, 2019 18:44
[2019-12-24] MEDS: traZODone 50 MG TAB PO PRN (20:18)
[2019-12-24] MEDS: ARIPiprazole 2 MG TAB PO SCH (20:18)
[2019-12-24] MEDS: ATORVASTATIN 20 MG TAB PO SCH (20:18)
[2019-12-24] MEDS: **NOTE PATIENT COMMENT** MISC XX SCH (20:20)
[2019-12-25] MEDS: LEVOTHYROXINE 125MCG TABLET (0.125MG) PO SCH (06:12)
[2019-12-25 06:39] VITALS: BP 148/74
[2019-12-25] MEDS: HumaLOG INSULIN (NovoLOG) PER UNIT SC SCH ×4 (07:04→20:52)
[2019-12-25] MEDS: metFORMIN (GLUCOPHAGE) 1000 MG TABLET PO SCH ×2 (07:26→17:28)
[2019-12-25] MEDS: LIDOCAINE 5% (LIDODERM) PATCH TD SCH (09:00)
[2019-12-25] MEDS: LEVEMIR (INSULIN DETEMIR) 1 UNITS/0.01ML SC SCH ×2 (09:20→20:51)
[2019-12-25] MEDS: LOSARTAN 50MG TABLET PO SCH (09:21)
[2019-12-25] MEDS: OMEPRAZOLE 20 MG CAP PO SCH (09:21)
--- NOTE | 2019-12-25 14:59 | MHIPNPDOC ---
[facility] Progress Note Progress Note DATE OF SERVICE: 12/25/19 HPI: Ashanti presents today for updates on medication and anxiety. She describes that she still feels anxious during the morning and was irritable somewhat today. She reports that she's not having suicidal thoughts but still is hopeless and dysthymic. MEDICATIONS: She reports no changes with the Abilify that was started. Objective Appearance: Hygiene fair. Mood: Dysthymic. Hopeless. Thought Form: Linear. Associations intact. Thought Content: Denies suicidal and homicidal ideation. Judgement: Unchanged. Insight: Unchanged. Assessment F33.2 Major depressive disorder, recurrent severe without psychotic features Plan Continue Abilify 2 mg nightly. Advocated patient start to work with various options for exploring her anxiety in the morning. Will be transferring to other team for continuation of treatment. Recommend a few more days of treatment at least due to her high-risk nature. Vital Signs Vital Signs Date Time Temp Pulse Resp B/P (MAP) Pulse Ox O2 Delivery O2 Flow Rate FiO2 12/25/19 09:21 149/69 12/25/19 06:39 97.7 88 16 97 Room Air Laboratory Data 24H Labs Laboratory Tests 2 12/24/19 17:05: Bedside Glucose (Misc Panel) 244H 12/24/19 20:14: Bedside Glucose (Misc Panel) 163H 12/25/19 06:14: Bedside Glucose (Misc Panel) 138H 12/25/19 11:52: Bedside Glucose (Misc Panel) 177H Current Medications Current Medications Medications (Trade) Dose Ordered Sig/Stacey Route PRN Reason Start Time Stop Time Status Last Admin Dose Admin Acetaminophen (Tylenol Tab) 650 mg Q6HP PRN PO HEADACHE or DISCOMFORT 12/23/19 19:00 12/24/19 14:22 Al Hydrox/Mg Hydrox/Simethicone (Mylanta) 30 ml Q4HP PRN PO HEARTBURN/INDIGESTION 12/23/19 19:00 Amlodipine Besylate (Norvasc) 10 mg DAILY PO 12/24/19 09:00 12/24/19 11:26 DC 12/24/19 08:43 Aripiprazole (AbiLIFY) 2 mg QHS PO 12/24/19 21:00 12/24/19 20:18 Atorvastatin Calcium (Lipitor) 40 mg QHS PO 12/23/19 21:00 12/24/19 20:18 Dextrose (Dextrose 50%) 25 ml ASDIRECTED PRN IV SEE LABEL COMMENTS 12/24/19 11:00 Glucagon (Glucagon) 1 mg ASDIRECTED PRN SC SEE LABEL COMMENTS 12/24/19 11:00 Glucose (Glucose) 16 GM ASDIRECTED PRN PO SEE LABEL COMMENTS 12/24/19 11:00 Hydralazine HCl (Apresoline) 20 mg Q8H PO 12/23/19 22:00 12/24/19 11:26 DC 12/24/19 06:30 Insulin Detemir (Levemir Insulin) 30 units BID SC 12/24/19 12:00 12/25/19 09:20 Insulin Human Lispro (HumaLOG INSULIN) SEE PROTOCOL TABLE AC SC 12/24/19 12:00 12/25/19 11:56 Insulin Human Lispro (HumaLOG INSULIN) SEE PROTOCOL TABLE QHS SC 12/24/19 21:00 Levothyroxine Sodium (Synthroid) 125 mcg DAILY@06 PO 12/24/19 06:00 12/25/19 06:12 Lidocaine (Lidoderm Patch) 1 patch DAILY TD 12/24/19 09:00 Losartan Potassium (Cozaar) 100 mg DAILY PO 12/24/19 11:45 12/25/19 09:21 Magnesium Hydroxide (Milk Of Magnesia) 30 ml DAILYPRN PRN PO CONSTIPATION 12/23/19 19:00 Metformin HCl (Glucophage) 1,000 mg BID@0800,1800 PO 12/24/19 18:00 12/25/19 07:26 Non-Formulary Medication ( See Comment Field Below ) REMOVE LIDODERM PATCH DAILY@21 XX 12/23/19 21:00 Omeprazole (PriLOSEC) 40 mg DAILY PO 12/24/19 09:00 12/25/19 09:21 Trazodone HCl (Desyrel) 50 mg QHSP PRN PO INSOMNIA 12/23/19 19:00 12/24/19 20:18 Allergies Coded Allergies: Sulfa (Sulfonamide Antibiotics) (Verified Allergy, Intermediate, HIVES, 12/20/19) clarithromycin (Verified Allergy, Intermediate, HIVES, 12/20/19) haloperidol (Verified Adverse Reaction, Intermediate, APHASIA, 12/20/19) ALEJANDRO CALL DO Dec 25, 2019 14:59
[2019-12-25 16:21] VITALS: BP 143/84
[2019-12-25] MEDS: ATORVASTATIN 20 MG TAB PO SCH (20:50)
[2019-12-25] MEDS: traZODone 50 MG TAB PO PRN (20:50)
[2019-12-25] MEDS: ARIPiprazole 2 MG TAB PO SCH (20:50)
[2019-12-25] MEDS: **NOTE PATIENT COMMENT** MISC XX SCH (20:51)
[2019-12-26] MEDS: LEVOTHYROXINE 125MCG TABLET (0.125MG) PO SCH (06:10)
[2019-12-26] MEDS: HumaLOG INSULIN (NovoLOG) PER UNIT SC SCH ×4 (06:19→20:06)
[2019-12-26 06:35] VITALS: BP 145/84
[2019-12-26] MEDS: LEVEMIR (INSULIN DETEMIR) 1 UNITS/0.01ML SC SCH ×2 (08:15→20:06)
[2019-12-26] MEDS: LOSARTAN 50MG TABLET PO SCH (08:16)
[2019-12-26] MEDS: OMEPRAZOLE 20 MG CAP PO SCH (08:16)
[2019-12-26] MEDS: metFORMIN (GLUCOPHAGE) 1000 MG TABLET PO SCH ×2 (08:16→16:53)
[2019-12-26] MEDS: LIDOCAINE 5% (LIDODERM) PATCH TD SCH (08:18)
--- NOTE | 2019-12-26 12:39 | MHCR ---
CHIEF COMPLAINT: Feels depressed, took an overdose. SUBJECTIVE: She is 59 years old recently , has two children, both daughters, one in [place], the other one lives locally. The patient has a long history of mood difficulties, has been in outpatient and inpatient psychiatric care and, since her 20s, has had several hospitalizations, most recent one was in [place] in July of this year, this was also when her left. They had been together for about 35 years. She says she was quite devastated by his leaving, particularly when he informed her that he was leaving her for someone else who had more money. Soon after this, the patient had taken an overdose, was admitted to [facility], was there for a few days, a little longer possibly, and during that time, she was told by a clinician there that she in fact had major depressive disorder rather than bipolar disorder, and had been diagnosed with bipolar disorder several years ago, had been treated as such, including when she was in [place], and this was for about four years prior to moving to [place]. When in [place], she was on ziprasidone (Geodon) and venlafaxine. When admitted to [place], the medications were not resumed, she was put on Wellbutrin, which has now gone up to 450 mg daily. She said she tried to see a psychiatrist in the [place] area, was not able to do so, as apparently they were not taking any new patients, she decided to move here to [place], as her daughter, who lives locally, was quite worried about her. The patient is in the process of getting outpatient psychiatric care, but meanwhile was seen by primary care, and Cymbalta was added to the Wellbutrin. She says she remained depressed most days, and has been consumed by a feeling of hopelessness, and poor sleep, poor energy, took an overdose a couple of days ago, who had an overdose on Klonopin, which she says she was getting from a friend, had been doing so for the last few weeks, using 1 mg a day. Her brother called her, there was no reply, brother called the daughter, who came to see the patient, the patient was apparently unresponsive, and she says she had passed out for about 24 hours or so, was brought to the hospital. She has been admitted to PCU, seen by the hospitalist, and currently deemed medically stable. She regrets surviving, feels hopeless, no plans to harm herself at present. She does say she had been quite depressed when in [place], but less intensely so. She had not been hospitalized there, was there for about four years, except for an overnight stay at a hospital, without an overdose, had not attempted her life. She says has in total taken about nine overdoses, most recent one the other day. She has had racing thoughts, has been on spending sprees, but without a concomitant elated or hyperirritable mood, and does not report any period of excessive energy, or increased substantial any goal-directed activities, or other symptoms indicative of hypomania or damir. She says she has had visual perceptual disturbances, vague on that, occasional. The patient has also had tapping noises, she could not account for, but nothing consistent, says the noises diminished quite considerably after she was started on the ziprasidone. PAST PSYCHIATRIC HISTORY: As indicated above, has been in psychiatric care since her 20s, several inpatient hospitalizations, and about 20 years was also treated with ECT in [place], on several occasions, did not find it to be helpful. She has had many attempts at taking her life. She is in outpatient, as stated above, most recently consistently in [place], before they moved back up to [place]. FAMILY PSYCHIATRIC HISTORY: Both parents with a little bit of depression. Daughter in [place] has bipolar disorder. MEDICAL HISTORY: Several medical problems, including diabetes, has had renal failure but that disappeared. She is not quite sure what happened, denies other clinicians. Denies any history of head injuries. SOCIAL HISTORY: We did not go into detail, but she has two children, one in [place], the other one here, she and her were together for 35 years or so, he left this summer, said she was shocked, so was the rest of the family. She has moved up here early this month so she could be near her daughter, her daughter has been worried about her. The patient lives on her own. She has a couple of brothers in [place], says in some contact with them periodically. MENTAL STATUS EXAM: She is neat. She is lying in bed in hospital clothes. She is cooperative, no agitation but some psychomotor retardation. Latency of response, answers questions, logically coherently, with little reactivity of affect and feels depressed. Affect is calm, good. She does not have any active plans to harm herself, but has suicidal thoughts and no evidence of any thoughts of harming anyone else. No evidence of any psychosis, does not appear internally preoccupied. She displays no delusional ideations. No fluctuation of consciousness. Cognition is grossly intact. Intellect average. Judgment and insight are quite compromised. ASSESSMENT: Major depressive disorder, recurrent, severe. Rule out bipolar disorder. Status post overdose. Breakup of marriage. Long history of mood difficulties. Feels severely depressed, took an overdose, regrets surviving it, has been very depressed since the breakup of marriage in July. She had previously been diagnosed with bipolar disorder, for many years. She says she was treated for bipolar disorder, until early this year, this summer in fact. She has had several inpatient hospitalizations, but none were in [place], apart from an overnight stay. She has been treated by medicine, and she says she is deemed medically stable. RECOMMENDATIONS: She needs inpatient hospitalization and psychiatry, for further stabilization and management, and differential diagnosis will be important, particularly for pharmacological management. Would suggest she transfer to the inpatient psychiatry unit when medically stable. Thank you for the consult. If you have any questions, please call. The assessment took 30 minutes. MARI
[2019-12-26] MEDS ORDERED: hydrOXYzine 50 MG TAB PO PRN (13:15)
[2019-12-26] MEDS: OLANZapine 5 MG TAB PO SCH ×2 (14:38→20:05)
--- NOTE | 2019-12-26 14:41 | MHIPNPDOC ---
[facility] Progress Note Progress Note DATE OF SERVICE: 12/26/19 HISTORY: Patient is a 59 year old , Disabled, Domiciled, female who was directly admitted to [facility] s/ suicide attempt. Patient had intentionally ingested Klonopin, Acetaminophen, Insulin and Metformin after her filled for divorce. Patient has a long history of suicide attempts, reporting that this is the eighth or ninth suicide attempt, all with hospitalizations thereafter. She had a recent suicide attempt in August and that was her last hospitalization. VITAL SIGNS: See below. NEW TEST RESULTS: CURRENT MEDICATIONS: See below. MENTAL STATUS EXAMINATION: Patient is a 59-year old , Disabled, Domiciled, female, who is admitted to [facility] s/p overdose on medications, including insulin. She appears older than her stated age, is dressed appropriately, her hygiene and grooming is fair, and eye contact is good. She does not have psychomotor agitation or retardation Speech: Is spontaneous, fluid, normal rate, tone and volume Language skills are intact Thought processes including: linear, goal oriented Thought content: depressed, anxious Abstract reasoning, and computation: fair Description of associations: none observed, she denies Description of abnormal or psychotic thoughts: none observed, she denies Judgment: fair Insight: fair Orientation: alert and oriented to person, place, time and situation Recent and remote memory: mostly intact, but has difficulty with dates Attention span and concentration: good Language: expansive Fund of knowledge: average Mood: Depressed. Affect: Flat DIAGNOSES: Bipolar 1 Disorder, Depressed Social Anxiety Adjustment Disorder ASSESSMENT: Patient is not stable for discharge. This patient reports that on July 26 she went to visit her brother (This sibling was a sister who transgendered to male) and while patient was on vacation, her moved out and is now residing with his girlfriend. Patient reports multiple suicide attempts, multiple hospitalizations, has been trialed on Wellbutrin, Buspar, Cymbalta, Effexor, Geodon, Lamictal Trazodone and has ECT in the past at [facility]. Has been diagnosed Bipolar with Psychotic Features. She reports a long history of narcissistic behaviors by her . 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 Patient is a good historian, reports that she recently moved here from [place] to be with her daughter. at this time, she continues to report depression and anxiety, denies current suicidal thinking at the time of interview, but she has passive thinking. MANAGEMENT PLAN: Patient is reporting that her last regimen made her feel numb and sedated (Effexor, Geodon, Lamictal and Trazodone) patient was on this combination while she was in [place] and reports that while she was there for 4 years, she had no hospitalizations or suicide attempts. At this time, patient is hesitant to restart these medications. I have discussed Seroquel, Zoloft and Lamictal with her but she was again, undecided and hesitant. TIME SPENT: 60 minutes. Vital Signs Vital Signs Date Time Temp Pulse Resp B/P (MAP) Pulse Ox O2 Delivery O2 Flow Rate FiO2 12/26/19 08:16 145/84 12/26/19 06:35 98.6 84 14 Room Air 12/25/19 06:39 97 Laboratory Data 24H Labs Laboratory Tests 2 12/25/19 16:53: Bedside Glucose (Misc Panel) 273H 12/25/19 20:43: Bedside Glucose (Misc Panel) 222H 12/26/19 06:14: Bedside Glucose (Misc Panel) 173H Current Medications Current Medications Medications (Trade) Dose Ordered Sig/Stacey Route PRN Reason Start Time Stop Time Status Last Admin Dose Admin Acetaminophen (Tylenol Tab) 650 mg Q6HP PRN PO HEADACHE or DISCOMFORT 12/23/19 19:00 12/24/19 14:22 Al Hydrox/Mg Hydrox/Simethicone (Mylanta) 30 ml Q4HP PRN PO HEARTBURN/INDIGESTION 12/23/19 19:00 Amlodipine Besylate (Norvasc) 10 mg DAILY PO 12/24/19 09:00 12/24/19 11:26 DC 12/24/19 08:43 Aripiprazole (AbiLIFY) 2 mg QHS PO 12/24/19 21:00 12/26/19 13:25 DC 12/25/19 20:50 Atorvastatin Calcium (Lipitor) 40 mg QHS PO 12/23/19 21:00 12/25/19 20:50 Dextrose (Dextrose 50%) 25 ml ASDIRECTED PRN IV SEE LABEL COMMENTS 12/24/19 11:00 Glucagon (Glucagon) 1 mg ASDIRECTED PRN SC SEE LABEL COMMENTS 12/24/19 11:00 Glucose (Glucose) 16 GM ASDIRECTED PRN PO SEE LABEL COMMENTS 12/24/19 11:00 Hydralazine HCl (Apresoline) 20 mg Q8H PO 12/23/19 22:00 12/24/19 11:26 DC 12/24/19 06:30 Hydroxyzine HCl (Atarax) 50 mg Q6HP PRN PO Anxiety 12/26/19 13:15 Insulin Detemir (Levemir Insulin) 30 units BID SC 12/24/19 12:00 12/26/19 08:33 DC 12/26/19 08:15 Insulin Detemir (Levemir Insulin) 35 units BID SC 12/26/19 21:00 Insulin Human Lispro (HumaLOG INSULIN) SEE PROTOCOL TABLE AC SC 12/24/19 12:00 12/26/19 11:44 Insulin Human Lispro (HumaLOG INSULIN) SEE PROTOCOL TABLE QHS SC 12/24/19 21:00 Levothyroxine Sodium (Synthroid) 125 mcg DAILY@06 PO 12/24/19 06:00 12/26/19 06:10 Lidocaine (Lidoderm Patch) 1 patch DAILY TD 12/24/19 09:00 Losartan Potassium (Cozaar) 100 mg DAILY PO 12/24/19 11:45 12/26/19 08:16 Magnesium Hydroxide (Milk Of Magnesia) 30 ml DAILYPRN PRN PO CONSTIPATION 12/23/19 19:00 Metformin HCl (Glucophage) 1,000 mg BID@0800,1800 PO 12/24/19 18:00 12/26/19 08:16 Non-Formulary Medication ( See Comment Field Below ) REMOVE LIDODERM PATCH DAILY@21 XX 12/23/19 21:00 Olanzapine (ZyPREXA) 5 mg BID PO 12/26/19 09:00 Omeprazole (PriLOSEC) 40 mg DAILY PO 12/24/19 09:00 12/26/19 08:16 Trazodone HCl (Desyrel) 50 mg QHSP PRN PO INSOMNIA 12/23/19 19:00 12/25/19 18:27 DC 12/24/19 20:18 Trazodone HCl (Desyrel) 150 mg QHSP PRN PO INSOMNIA 12/25/19 21:00 12/25/19 20:50 Allergies Coded Allergies: Sulfa (Sulfonamide Antibiotics) (Verified Allergy, Intermediate, HIVES, 12/20/19) clarithromycin (Verified Allergy, Intermediate, HIVES, 12/20/19) haloperidol (Verified Adverse Reaction, Intermediate, APHASIA, 12/20/19) ANAIS SANDOVAL NP Dec 26, 2019 13:59
[2019-12-26 17:58] VITALS: BP 130/76
[2019-12-26] MEDS: ATORVASTATIN 20 MG TAB PO SCH (20:05)
[2019-12-26] MEDS: **NOTE PATIENT COMMENT** MISC XX SCH (20:24)
[2019-12-27] MEDS: LEVOTHYROXINE 125MCG TABLET (0.125MG) PO SCH (06:07)
[2019-12-27 06:42] VITALS: BP 149/74
[2019-12-27] MEDS: HumaLOG INSULIN (NovoLOG) PER UNIT SC SCH ×4 (07:07→21:00)
[2019-12-27] MEDS: metFORMIN (GLUCOPHAGE) 1000 MG TABLET PO SCH ×2 (08:29→16:53)
[2019-12-27] MEDS: LEVEMIR (INSULIN DETEMIR) 1 UNITS/0.01ML SC SCH ×2 (08:29→21:13)
[2019-12-27] MEDS: OLANZapine 5 MG TAB PO SCH ×2 (08:30→21:15)
[2019-12-27] MEDS: LOSARTAN 50MG TABLET PO SCH (08:30)
[2019-12-27] MEDS: LIDOCAINE 5% (LIDODERM) PATCH TD SCH (08:30)
[2019-12-27] MEDS: OMEPRAZOLE 20 MG CAP PO SCH (08:30)
--- NOTE | 2019-12-27 14:06 | MHIPNPDOC ---
[facility] Progress Note Progress Note DATE OF SERVICE: 12/27/19 HISTORY: Patient is a 59 year old , Disabled, Domiciled, female who was directly admitted to [facility] s/p suicide attempt. Patient had intentionally ingested Klonopin, Acetaminophen, Insulin and Metformin after her filled for divorce. Patient has a long history of suicide attempts, reporting that this is the eighth or ninth suicide attempt, all with hospitalizations thereafter. She had a recent suicide attempt in August and that was her last hospitalization. VITAL SIGNS: See below. NEW TEST RESULTS: CURRENT MEDICATIONS: See below. MENTAL STATUS EXAMINATION: Patient is a 59-year old , Disabled, Domiciled, female, who is admitted to [facility] s/p overdose on medications, including insulin. She appears older than her stated age, is dressed appropriately, her hygiene and grooming is fair, and eye contact is good. She does not have psychomotor agitation or retardation. Smiles on approach. Speech: Is spontaneous, fluid, normal rate, tone and volume Language skills are intact Thought processes including: linear, goal oriented Thought content: denies depression, denies anxious Abstract reasoning, and computation: fair Description of associations: none observed, she denies Description of abnormal or psychotic thoughts: none observed, she denies Judgment: good Insight: good Orientation: alert and oriented to person, place, time and situation Recent and remote memory: mostly intact, but has difficulty with dates Attention span and concentration: good Language: expansive Fund of knowledge: average Mood: Depressed. Affect: Flat DIAGNOSES: Bipolar 1 Disorder, Depressed Social Anxiety Adjustment Disorder with depression Diabetes Insulin Dependent Hypothyroidism Hypertension GERD ASSESSMENT: Patient states, "This is the best I have felt in 10-15 years, I slept and I don't have back pain." Patient states that she does not feel depressed, anxious, or labile. She reports no mood dysregulation. She was uneasy about the addition of Lamictal as a mood stabilizer reporting that at this time, she is does not feel the need to add anything to her regimen as she states that Zyprexa allowed her to sleep and helped her with anxiety. I reviewed with the patient that without a mood stabilizer she may decompensate. I also encouraged her to consider a Cymbalta or Prozac for Bipolar, depression symptoms that she was admitted for. Patient again was hesitant and at this time, she wants to be discharged on Zyprexa only. Patient is hopeful that she can be discharged tomorrow as her daughter is off tomorrow. She is calm and cooperative in the interview, smiling in the interview. Reported that she slept so well, she was dreaming about fishing with Law and Order Actor, then she laughed. MANAGEMENT PLAN: Patient will be discharged when she is stable. TIME SPENT: 25 minutes. Vital Signs Vital Signs Date Time Temp Pulse Resp B/P (MAP) Pulse Ox O2 Delivery O2 Flow Rate FiO2 12/27/19 08:30 149/74 12/27/19 06:42 98.6 74 16 Room Air 12/25/19 06:39 97 Laboratory Data 24H Labs Laboratory Tests 2 12/26/19 16:50: Bedside Glucose (Misc Panel) 182H 12/26/19 20:01: Bedside Glucose (Misc Panel) 236H 12/27/19 06:05: Bedside Glucose (Misc Panel) 144H 12/27/19 11:35: Bedside Glucose (Misc Panel) 158H Current Medications Current Medications Medications (Trade) Dose Ordered Sig/Stacey Route PRN Reason Start Time Stop Time Status Last Admin Dose Admin Acetaminophen (Tylenol Tab) 650 mg Q6HP PRN PO HEADACHE or DISCOMFORT 12/23/19 19:00 12/24/19 14:22 Al Hydrox/Mg Hydrox/Simethicone (Mylanta) 30 ml Q4HP PRN PO HEARTBURN/INDIGESTION 12/23/19 19:00 Amlodipine Besylate (Norvasc) 10 mg DAILY PO 12/24/19 09:00 12/24/19 11:26 DC 12/24/19 08:43 Aripiprazole (AbiLIFY) 2 mg QHS PO 12/24/19 21:00 12/26/19 13:25 DC 12/25/19 20:50 Atorvastatin Calcium (Lipitor) 40 mg QHS PO 12/23/19 21:00 12/26/19 20:05 Dextrose (Dextrose 50%) 25 ml ASDIRECTED PRN IV SEE LABEL COMMENTS 12/24/19 11:00 Glucagon (Glucagon) 1 mg ASDIRECTED PRN SC SEE LABEL COMMENTS 12/24/19 11:00 Glucose (Glucose) 16 GM ASDIRECTED PRN PO SEE LABEL COMMENTS 12/24/19 11:00 Hydralazine HCl (Apresoline) 20 mg Q8H PO 12/23/19 22:00 12/24/19 11:26 DC 12/24/19 06:30 Hydroxyzine HCl (Atarax) 50 mg Q6HP PRN PO Anxiety 12/26/19 13:15 Insulin Detemir (Levemir Insulin) 30 units BID SC 12/24/19 12:00 12/26/19 08:33 DC 12/26/19 08:15 Insulin Detemir (Levemir Insulin) 35 units BID SC 12/26/19 21:00 12/27/19 08:29 Insulin Human Lispro (HumaLOG INSULIN) SEE PROTOCOL TABLE AC SC 12/24/19 12:00 12/27/19 11:37 Insulin Human Lispro (HumaLOG INSULIN) SEE PROTOCOL TABLE QHS SC 12/24/19 21:00 Levothyroxine Sodium (Synthroid) 125 mcg DAILY@06 PO 12/24/19 06:00 12/27/19 06:07 Lidocaine (Lidoderm Patch) 1 patch DAILY TD 12/24/19 09:00 Losartan Potassium (Cozaar) 100 mg DAILY PO 12/24/19 11:45 12/27/19 08:30 Magnesium Hydroxide (Milk Of Magnesia) 30 ml DAILYPRN PRN PO CONSTIPATION 12/23/19 19:00 Metformin HCl (Glucophage) 1,000 mg BID@0800,1800 PO 12/24/19 18:00 12/27/19 08:29 Non-Formulary Medication ( See Comment Field Below ) REMOVE LIDODERM PATCH DAILY@21 XX 12/23/19 21:00 12/26/19 20:24 Olanzapine (ZyPREXA) 5 mg BID PO 12/26/19 09:00 12/27/19 08:30 Omeprazole (PriLOSEC) 40 mg DAILY PO 12/24/19 09:00 12/27/19 08:30 Trazodone HCl (Desyrel) 50 mg QHSP PRN PO INSOMNIA 12/23/19 19:00 12/25/19 18:27 DC 12/24/19 20:18 Trazodone HCl (Desyrel) 150 mg QHSP PRN PO INSOMNIA 12/25/19 21:00 12/25/19 20:50 Allergies Coded Allergies: Sulfa (Sulfonamide Antibiotics) (Verified Allergy, Intermediate, HIVES, 12/20/19) clarithromycin (Verified Allergy, Intermediate, HIVES, 12/20/19) haloperidol (Verified Adverse Reaction, Intermediate, APHASIA, 12/20/19) ANAIS SANDOVAL NP Dec 27, 2019 13:30
[2019-12-27 17:51] VITALS: BP 132/58
[2019-12-27] MEDS: **NOTE PATIENT COMMENT** MISC XX SCH (20:58)
[2019-12-27] MEDS: ATORVASTATIN 20 MG TAB PO SCH (21:02)
[2019-12-27] MEDS: traZODone 50 MG TAB PO PRN (21:02)
[2019-12-28] MEDS: LEVOTHYROXINE 125MCG TABLET (0.125MG) PO SCH (06:14)
[2019-12-28] MEDS: HumaLOG INSULIN (NovoLOG) PER UNIT SC SCH ×4 (06:20→21:00)
[2019-12-28 06:48] VITALS: BP 140/74
[2019-12-28] MEDS ORDERED: lamoTRIgine 25 MG TAB PO SCH (09:00)
[2019-12-28] MEDS: LIDOCAINE 5% (LIDODERM) PATCH TD SCH (09:00)
--- NOTE | 2019-12-28 10:10 | MHIPNPDOC ---
[facility] Progress Note Progress Note DATE OF SERVICE: 12/28/19 HISTORY: Patient is a 59 year old , Disabled, Domiciled, female who was directly admitted to [facility] s/p suicide attempt. Patient had intentionally ingested Klonopin, Acetaminophen, Insulin and Metformin after her filled for divorce. Patient has a long history of suicide attempts, reporting that this is the eighth or ninth suicide attempt, all with hospitalizations thereafter. She had a recent suicide attempt in August and that was her last hospitalization. VITAL SIGNS: See below. NEW TEST RESULTS: CURRENT MEDICATIONS: See below. MENTAL STATUS EXAMINATION: Patient is a 59-year old , Disabled, Domiciled, female, who is admitted to [facility] s/p overdose on medications, including insulin. She appears older than her stated age, is dressed appropriately, her hygiene and grooming is fair, and eye contact is good. She does not have psychomotor agitation or retardation. Smiles on approach. Speech: Is spontaneous, fluid, normal rate, tone and volume Language skills are intact Thought processes including: linear, goal oriented Thought content: denies depression, denies anxious Abstract reasoning, and computation: fair Description of associations: none observed, she denies Description of abnormal or psychotic thoughts: none observed, she denies Judgment: good Insight: good Orientation: alert and oriented to person, place, time and situation Recent and remote memory: mostly intact, but has difficulty with dates Attention span and concentration: good Language: expansive Fund of knowledge: average Mood: Less depressed. Affect: Reactive DIAGNOSES: Bipolar 1 Disorder, Depressed Social Anxiety Adjustment Disorder with depression Diabetes Insulin Dependent Hypothyroidism Hypertension GERD ASSESSMENT: "Only feel anxious around people who are obnoxious, I feel really good for a couple of house, and then I get triggered, get sweatiness including anxiety." During the night, when another peer was yelling, she yelled back. H as difficulty with loud noises, triggers an anxiety. 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 She talked about wanting to start the process for divorce. She was agreeable to journaling and negative thinking and positive thinking worksheets. Patient requested [employer] Numbers for [employer]. She reports that she is feeling Zyprexa is working, but feels that she does need Lamictal and Cymbalta. Lamictal 20 mg daily ordered and Cymbalta 30 mg ordered. Denies suicidal ideation, planning or intent. She denies depressive symptoms so tenuous that she needs continued hospitalization and is requesting discharge tomorrow. MANAGEMENT PLAN: Discharge tomorrow. TIME SPENT: 60 minutes. Vital Signs Vital Signs Date Time Temp Pulse Resp B/P (MAP) Pulse Ox O2 Delivery O2 Flow Rate FiO2 12/28/19 06:48 97.8 100 18 140/74 (96) 99 Room Air Laboratory Data 24H Labs Laboratory Tests 2 12/27/19 11:35: Bedside Glucose (Misc Panel) 158H 12/27/19 16:51: Bedside Glucose (Misc Panel) 191H 12/27/19 21:06: Bedside Glucose (Misc Panel) 212H 12/28/19 06:15: Bedside Glucose (Misc Panel) 190H Current Medications Current Medications Medications (Trade) Dose Ordered Sig/Stacey Route PRN Reason Start Time Stop Time Status Last Admin Dose Admin Acetaminophen (Tylenol Tab) 650 mg Q6HP PRN PO HEADACHE or DISCOMFORT 12/23/19 19:00 12/24/19 14:22 Al Hydrox/Mg Hydrox/Simethicone (Mylanta) 30 ml Q4HP PRN PO HEARTBURN/INDIGESTION 12/23/19 19:00 Amlodipine Besylate (Norvasc) 10 mg DAILY PO 12/24/19 09:00 12/24/19 11:26 DC 12/24/19 08:43 Aripiprazole (AbiLIFY) 2 mg QHS PO 12/24/19 21:00 12/26/19 13:25 DC 12/25/19 20:50 Atorvastatin Calcium (Lipitor) 40 mg QHS PO 12/23/19 21:00 12/27/19 21:02 Dextrose (Dextrose 50%) 25 ml ASDIRECTED PRN IV SEE LABEL COMMENTS 12/24/19 11:00 Glucagon (Glucagon) 1 mg ASDIRECTED PRN SC SEE LABEL COMMENTS 12/24/19 11:00 Glucose (Glucose) 16 GM ASDIRECTED PRN PO SEE LABEL COMMENTS 12/24/19 11:00 Hydralazine HCl (Apresoline) 20 mg Q8H PO 12/23/19 22:00 12/24/19 11:26 DC 12/24/19 06:30 Hydroxyzine HCl (Atarax) 50 mg Q6HP PRN PO Anxiety 12/26/19 13:15 Insulin Detemir (Levemir Insulin) 30 units BID SC 12/24/19 12:00 12/26/19 08:33 DC 12/26/19 08:15 Insulin Detemir (Levemir Insulin) 35 units BID SC 12/26/19 21:00 12/27/19 21:13 Insulin Human Lispro (HumaLOG INSULIN) SEE PROTOCOL TABLE AC SC 12/24/19 12:00 12/28/19 06:20 Insulin Human Lispro (HumaLOG INSULIN) SEE PROTOCOL TABLE QHS SC 12/24/19 21:00 Levothyroxine Sodium (Synthroid) 125 mcg DAILY@06 PO 12/24/19 06:00 12/28/19 06:14 Lidocaine (Lidoderm Patch) 1 patch DAILY TD 12/24/19 09:00 Losartan Potassium (Cozaar) 100 mg DAILY PO 12/24/19 11:45 12/27/19 08:30 Magnesium Hydroxide (Milk Of Magnesia) 30 ml DAILYPRN PRN PO CONSTIPATION 12/23/19 19:00 Metformin HCl (Glucophage) 1,000 mg BID@0800,1800 PO 12/24/19 18:00 12/27/19 16:53 Non-Formulary Medication ( See Comment Field Below ) REMOVE LIDODERM PATCH DAILY@21 XX 12/23/19 21:00 12/26/19 20:24 Olanzapine (ZyPREXA) 5 mg BID PO 12/26/19 09:00 12/27/19 21:15 Omeprazole (PriLOSEC) 40 mg DAILY PO 12/24/19 09:00 12/27/19 08:30 Trazodone HCl (Desyrel) 50 mg QHSP PRN PO INSOMNIA 12/23/19 19:00 12/25/19 18:27 DC 12/24/19 20:18 Trazodone HCl (Desyrel) 150 mg QHSP PRN PO INSOMNIA 12/25/19 21:00 12/27/19 21:02 Allergies Coded Allergies: Sulfa (Sulfonamide Antibiotics) (Verified Allergy, Intermediate, HIVES, 12/20/19) clarithromycin (Verified Allergy, Intermediate, HIVES, 12/20/19) haloperidol (Verified Adverse Reaction, Intermediate, APHASIA, 12/20/19) ANAIS SANDOVAL NP Dec 28, 2019 09:28
[2019-12-28] MEDS: LOSARTAN 50MG TABLET PO SCH (10:13)
[2019-12-28] MEDS: DULoxetine 30 MG CAP (CYMBALTA) PO SCH (10:13)
[2019-12-28] MEDS: OMEPRAZOLE 20 MG CAP PO SCH (10:13)
[2019-12-28] MEDS: OLANZapine 5 MG TAB PO SCH ×2 (10:14→21:10)
[2019-12-28] MEDS: LEVEMIR (INSULIN DETEMIR) 1 UNITS/0.01ML SC SCH ×2 (10:15→21:11)
[2019-12-28] MEDS ORDERED: FLUCONAZOLE 50MG TABLET PO ONE (11:00)
[2019-12-28] MEDS: metFORMIN (GLUCOPHAGE) 1000 MG TABLET PO SCH ×2 (11:10→17:21)
[2019-12-28] MEDS: ACETAMINOPHEN TAB 650MG DOSE (2X325MG) PO PRN (11:29)
[2019-12-28 18:00] VITALS: BP 120/60
[2019-12-28] MEDS: **NOTE PATIENT COMMENT** MISC XX SCH (21:00)
[2019-12-28] MEDS: traZODone 50 MG TAB PO PRN (21:10)
[2019-12-28] MEDS: ATORVASTATIN 20 MG TAB PO SCH (21:10)
[2019-12-29 06:10] VITALS: BP 144/86
[2019-12-29] MEDS: LEVOTHYROXINE 125MCG TABLET (0.125MG) PO SCH (06:15)
[2019-12-29] MEDS: HumaLOG INSULIN (NovoLOG) PER UNIT SC SCH ×2 (06:18→11:30)
[2019-12-29] MEDS: OMEPRAZOLE 20 MG CAP PO SCH (08:54)
[2019-12-29] MEDS: LEVEMIR (INSULIN DETEMIR) 1 UNITS/0.01ML SC SCH (08:54)
[2019-12-29 08:55] VITALS: BP 144/86
[2019-12-29] MEDS: metFORMIN (GLUCOPHAGE) 1000 MG TABLET PO SCH (08:55)
[2019-12-29] MEDS: OLANZapine 5 MG TAB PO SCH (08:55)
[2019-12-29] MEDS: DULoxetine 30 MG CAP (CYMBALTA) PO SCH (08:55)
[2019-12-29] MEDS: LOSARTAN 50MG TABLET PO SCH (08:55)
[2019-12-29] MEDS: ACETAMINOPHEN TAB 650MG DOSE (2X325MG) PO PRN (08:56)
[2019-12-29] MEDS: LIDOCAINE 5% (LIDODERM) PATCH TD SCH (08:57)
[2019-12-29] MEDS ORDERED: lamoTRIgine 25 MG TAB PO SCH (09:00)
[2019-12-29] MEDS ORDERED: NOVOINJ3 SC (09:11)
[2019-12-29] MEDS ORDERED: METF-838 PO (09:11)
[2019-12-29] MEDS ORDERED: JARD1TAB3 PO (09:11)
[2019-12-29] MEDS ORDERED: LANTINJ4 SC (09:11)
[2019-12-29] MEDS ORDERED: OLAN5TAB PO (10:08)
[2019-12-29] MEDS ORDERED: LAMI25TA PO (10:08)
[2019-12-29] MEDS ORDERED: CYMB1CAP5 PO (10:08)
--- NOTE | 2019-12-29 11:53 | MHDSPDOC ---
[facility] Discharge Summary Discharge Summary DATE OF ADMISSION: Dec 23, 2019 at 18:53 DATE OF DISCHARGE: December 29, 2019 0810 DISCHARGE DIAGNOSES: Bipolar 1 Disorder, Depressed Social Anxiety Adjustment Disorder with depression Diabetes Insulin Dependent Hypothyroidism Hypertension GERD REASON FOR ADMISSION: HISTORY: Patient is a 59 year old , Disabled, Domiciled, female who was directly admitted to [facility] s/p suicide attempt. Patient had intentionally ingested Klonopin, Acetaminophen, Insulin and Metformin after her filled for divorce very recently. He left her without notice and moved in with another woman. Patient has a long history of suicide attempts, reporting that this is the eighth or ninth suicide attempt, all with hospitalizations thereafter. She had a recent suicide attempt in August and that was her last hospitalization. CONSULTANTS INVOLVED: See H + P by Medical Provider TREATMENT AND PROGRESS ON THE UNIT : Patient was admitted to the [facility] on a 9.39 legal status he was afforded the following treatment modalities: 1) Individual Therapy 2) Group Therapy 3) Medication Management 4) Milieu Therapy 5) Safe Environment HOSPITAL COURSE: Patient had reported to be that she was on a regimen that she considered a poor one. DISCHARGE ASSESSMENT: Patient seen this morning, smiling on approach. She reported during this admission that she has felt better than she has in the past. She spoke to her daughter while in the session to tell her daughter of her pending discharge. She told her daughter that she was doing well. Patient is a 59-year old , Disabled, Domiciled, female, who is admitted to [facility] s/p overdose on medications, including insulin. She appears older than her stated age, is dressed appropriately, her hygiene and grooming is fair, and eye contact is good. She does not have psychomotor agitation or retardation. Smiles on approach. Speech: Is spontaneous, fluid, normal rate, tone and volume Language skills are intact Thought processes including: linear, goal oriented Thought content: denies depression, denies anxious Abstract reasoning, and computation: fair Description of associations: none observed, she denies Description of abnormal or psychotic thoughts: none observed, she denies Judgment: good Insight: good Orientation: alert and oriented to person, place, time and situation Recent and remote memory: intact, good historian Attention span and concentration: good Language: expansive Fund of knowledge: average Mood: reports no depression, no suicidal ideation "I feel so good, for the first time in a long time". Affect: Reactive MEDICATIONS ON DISCHARGE: see Medication Reconciliation PLAN/FOLLOWUP ARRANGEMENTS: Patient following up at [facility]. The amount of time spent in the coordination of care for this patient was approximately 35 minutes. Vital Signs/I&Os Vital Signs Date Time Temp Pulse Resp B/P (MAP) Pulse Ox O2 Delivery O2 Flow Rate FiO2 12/29/19 06:10 97.1 73 16 144/86 (105) 12/28/19 06:48 99 Room Air Laboratory Data Labs 24H Laboratory Tests 2 12/28/19 11:38: Bedside Glucose (Misc Panel) 219H 12/28/19 17:14: Bedside Glucose (Misc Panel) 223H 12/28/19 21:08: Bedside Glucose (Misc Panel) 208H 12/29/19 06:16: Bedside Glucose (Misc Panel) 185H Medications Scheduled Amlodipine Besylate (Amlodipine Besylate) 10 Mg Tablet, 10 MG PO DAILY for 30 Days, #30 Atorvastatin Calcium (Atorvastatin Calcium) 40 Mg Tablet, 40 MG PO QHS, (Reported) Duloxetine Hcl (Cymbalta) 30 Mg Capsule.dr, 30 MG PO QAM for depression, #7 Empagliflozin (Jardiance) 25 Mg Tablet, 25 MG PO DAILY for DIABETES, (Reported) Fexofenadine HCl (Fexofenadine HCl) 180 Mg Tablet, 180 MG PO DAILY, (Reported) Insulin Aspart (Novolog Flexpen) 100 Unit/1 Ml Insuln.pen, 2 UNITS SC AC for DIABETES, (Reported) Insulin Glargine,Hum.rec.anlog (Lantus Solostar) 100 Unit/1 Ml Insuln.pen, 70 UNITS SC QHS for DIABETES, (Reported) Lamotrigine (Lamictal) 25 Mg Tablet, 25 MG PO QAM for Mood Stabilization, #7 Levothyroxine Sodium (Levothyroxine Sodium) 125 Mcg Tablet, 125 MCG DAILY, (Reported) Metformin HCl (Metformin HCl ER) 500 Mg Tab.er.24h, 1,000 MG PO BID for DIABETES, (Reported) Olanzapine (Olanzapine) 5 Mg Tablet, 5 MG PO BID for Agitation/Antipsychotic, #14 Omeprazole (Omeprazole) 40 Mg Capsule.dr, 40 MG DAILY, (Reported) Scheduled PRN Acetaminophen (Acetaminophen) 500 Mg Tablet, 500 MG PO Q6H PRN for PAIN, (Reported) Allergies Coded Allergies: Sulfa (Sulfonamide Antibiotics) (Verified Allergy, Intermediate, HIVES, 12/20/19) clarithromycin (Verified Allergy, Intermediate, HIVES, 12/20/19) haloperidol (Verified Adverse Reaction, Intermediate, APHASIA, 12/20/19) ANAIS SANDOVAL NP Dec 29, 2019 08:22
== END 2019-12-29 17:04 | disposition home or self-care (01) | DRG 885 ==
LOC: UNDOADMIN 18:42 → M ED INP 18:42 → M PSY 20:28
PROVIDERS: ADMIT Psychiatry & Neurology Psychiatry; ATTEND Psychiatry & Neurology Psychiatry
DX: F31.30 Bipolar disorder, current episode depressed, mild or moderate severity, unspecified (principal); I10 Essential (primary) hypertension; K21.9 Gastro-esophageal reflux disease without esophagitis; F41.9 Anxiety disorder, unspecified; E11.9 Type 2 diabetes mellitus without complications; Z79.4 Long term (current) use of insulin; E03.9 Hypothyroidism, unspecified; Z79.899 Other long term (current) drug therapy; Z88.2 Allergy status to sulfonamides; Z88.8 Allergy status to other drugs, medicaments and biological substances; Z63.5 Disruption of family by separation and divorce; Z87.891 Personal history of nicotine dependence

== ENCOUNTER 2020-02-16 14:25 | Inpatient (IN) | payer MEDICARE, OTHER ==
[~2020-02-16] VITALS: Ht 167.6 cm; Wt 95.2 kg
[~2020-02-16 14:25] MED LIST changes: +CYMB1CAP5 PO; +LAMI25TA PO; +OLAN5TAB PO
[2020-02-16 14:55] LABS: HEMATOCRIT 42.5 % (36.0-47.0); HEMOGLOBIN 13.5 g/dl (12.0-15.5); MEAN CORPUSCULAR HEMOGLOBIN 26.3 pg (27.0-33.0); MEAN CORPUSCULAR HGB CONC 31.8 g/dl (32.0-36.5); MEAN CORPUSCULAR VOLUME 82.8 fl (80.0-96.0); PLATELET COUNT, AUTOMATED 286 10^3/uL (150-450); RED BLOOD COUNT 5.13 10^6/uL (4.00-5.40); WHITE BLOOD COUNT 10.3 10^3/uL (4.0-10.0)
[2020-02-16] MEDS ORDERED: LAMO25TA4 PO (15:23)
[2020-02-16] MEDS ORDERED: DULO30CA9 PO (15:23)
[2020-02-16] MEDS ORDERED: OLAN5TAB PO (15:23)
[2020-02-16] MEDS ORDERED: LOSA100T50 PO (15:24)
[2020-02-16] MEDS ORDERED: TRAZ1TAB14 PO (15:24)
[2020-02-16 15:49] LABS: ACETAMINOPHEN LEVEL < 2.0 UG/ML (10.0-30.0); ALT/SGPT 37 U/L (12-78); BILIRUBIN,DIRECT < 0.1 MG/DL (0.0-0.2); BILIRUBIN,TOTAL 0.3 MG/DL (0.2-1.0); BLOOD UREA NITROGEN 24 MG/DL (7-18); CALCIUM LEVEL 8.9 MG/DL (8.5-10.1); CARBON DIOXIDE LEVEL 16 MEQ/L (21-32); CHLORIDE LEVEL 108 MEQ/L (98-107); CREATININE FOR GFR 1.18 MG/DL (0.55-1.30); ETHYL ALCOHOL (ETHANOL) 0.129 % (0.000-0.010); GLOMERULAR FILTRATION RATE 49.9 (>51); GLUCOSE, FASTING 244 MG/DL (70-100); POTASSIUM SERUM 3.6 MEQ/L (3.5-5.1); SALICYLATE LEVEL < 1.7 MG/DL (5.0-30.0); SODIUM LEVEL 142 MEQ/L (136-145); TOTAL PROTEIN 7.7 GM/DL (6.4-8.2)
[2020-02-16 16:32] LABS: AMPHETAMINES LEVEL URINE NEGATIVE (NEGATIVE); BARBITURATES URINE NEGATIVE (NEGATIVE); BENZODIAZEPINES URINE NEGATIVE (NEGATIVE); CANNABINOIDS URINE NEGATIVE (NEGATIVE); COCAINE METABOLITE URINE NEGATIVE (NEGATIVE); METHADONE URINE NEGATIVE (NEGATIVE); OPIATES URINE NEGATIVE (NEGATIVE); PHENCYCLIDINE URINE NEGATIVE (NEGATIVE)
[2020-02-16 16:43] LABS: VENOUS BASE EXCESS -13.1 (-2.0-2.0); VENOUS HCO3 13.1 MEQ/L (23.0-27.0); VENOUS O2 SATURATION 97.5 % (60.0-80.0); VENOUS PARTIAL PRESSURE CO2 31.7 mmHg (38.0-50.0); VENOUS PH 7.234 UNITS (7.330-7.430); VENOUS STANDARD HCO3 14.4 MEQ/L; VENOUS TOTAL CO2 14.1 MEQ/L (24.0-28.0)
[2020-02-16 17:26] LABS: RSV AMPLIFICATION NEGATIVE (NEGATIVE)
[2020-02-16] MEDS ORDERED: NS 1,000 ML IV SCH (17:58)
[2020-02-16 18:24] LABS: ACETONE/KETONE 4.82 MG/DL (<2.81)
[2020-02-16] MEDS ORDERED: DEXTROSE 50% 50 ML SYRINGE IV PRN (18:30)
[2020-02-16] MEDS ORDERED: NS 1,000 ML IV ONE (18:30)
[2020-02-16] MEDS ORDERED: GLUCOSE 4GM CHEW TABLET PO PRN (18:30)
[2020-02-16] MEDS ORDERED: GLUCAGON INJ 1MG VIAL SC PRN (18:30)
[2020-02-16 18:31] LABS: HEMOGLOBIN A1c 7.5 %
--- NOTE | 2020-02-16 18:50 | HPEPDOC ---
General Date of Admission 02/16/20 Date of Service: Feb 16, 2020 Chief Complaint The patient is a 59-year-old female admitted with a reason for visit of MHE. Source: Patient, RN/MD History of Present Illness This is a 59 year old female came to the ED felling depressed with suicidal ideas. She was having suicidal thought but no definite plan. She was intoxicated on arrival . She stated that she was drinking in the morning prior to coming to the hospital. Her alcohol level was 0.129. Labs revealed high anion gap metabolic acidosis so hospitalist was consulted for admission. She complains of feeling very sad and upset. She says she is not a regular drinker. She bought some wine for [employer]. She was sad and upset this morning and started drinking. Then started having suicidal thoughts. Her of 35 years left her in July this year. She then entered into another relationship which also ended recently. SHe recently moved up here in November and has not established any PMD here. Her daughter lives here. She is being admitted to medicaine for metabolic acidosis possibly alcoholic acidosis. Will be evaluated by Psych after medically cleared Home Medications Scheduled Atorvastatin Calcium (Atorvastatin Calcium) 40 Mg Tablet, 40 MG PO QHS, (Reported) Duloxetine Hcl (Duloxetine HCl) 30 Mg Capsule.dr, 30 MG PO DAILY, (Reported) Empagliflozin (Jardiance) 25 Mg Tablet, 25 MG PO DAILY for DIABETES, (Reported) Insulin Aspart (Novolog Flexpen) 100 Unit/1 Ml Insuln.pen, 2 UNITS SC AC for DIABETES, (Reported) Insulin Glargine,Hum.rec.anlog (Lantus Solostar) 100 Unit/1 Ml Insuln.pen, 70 UNITS SC QHS for DIABETES, (Reported) Lamotrigine (Lamotrigine) 25 Mg Tablet, 25 MG PO DAILY, (Reported) Levothyroxine Sodium (Levothyroxine Sodium) 125 Mcg Tablet, 125 MCG DAILY, (Reported) Losartan Potassium (Losartan Potassium) 100 Mg Tablet, 100 MG PO DAILY, (Reported) Metformin HCl (Metformin HCl ER) 500 Mg Tab.er.24h, 1,000 MG PO BID for DIABETES, (Reported) Olanzapine (Olanzapine) 5 Mg Tablet, 5 MG PO BID, (Reported) Omeprazole (Omeprazole) 40 Mg Capsule.dr, 40 MG DAILY, (Reported) Trazodone HCl (Trazodone HCl) 150 Mg Tablet, 150 MG PO QHS, (Reported) Scheduled PRN Acetaminophen (Acetaminophen) 500 Mg Tablet, 500 MG PO Q6H PRN for PAIN, (Reported) Allergies Coded Allergies: Sulfa (Sulfonamide Antibiotics) (Verified Allergy, Intermediate, HIVES, 12/20/19) clarithromycin (Verified Allergy, Intermediate, HIVES, 12/20/19) haloperidol (Verified Adverse Reaction, Intermediate, APHASIA, 12/20/19) Past Medical History Medical History Bipolar 1 Disorder Multiple suicide attempts 8 to 9 times. Social Anxiety Adjustment Disorder with depression Hypothyroidism Diabetes mellitus type 2 Hypertension HLD Obesity GERD ALISSON on CPAP has not used it for 6 months. Surgical History 2 Appendectomy Carpal tunnel surgery 2 Family History Significant Family History: Diabetes (mother and father), Hypertension (mother and father) Both parents had coronary artery disease and in their 70s Social History * Smoker: former Smoker Alcohol: occationally Drugs: denies A-FIB/CHADSVASC A-FIB History Current/History of A-Fib/PAF?: No Review of Systems Constitutional: Denies: Chills, Fever, Night Sweats Eyes: Denies: Pain, Vision change ENT: Denies: Head Aches, Ear Pain, Dysphagia Skin: Denies: Rash, Lesions, Breakdown Pulmonary: Denies: Dyspnea, Cough Cardiovascular: Denies: Chest Pain, Palpitations, Orthopnea, Paroxysmal Noc. Dyspnea, Lt Headedness Gastrointestinal: Reports: Other Symptoms (feels very thirsty.); Denies: Nausea, Vomiting, Abdominal Pain, Diarrhea Genitourinary: Denies: Dysuria, Frequency, Incontinence, Retention Neurological: Denies: Weakness, Numbness, Change in speech, Confusion Psych: Reports: Depression, Thoughts of Self Harm Physical Examination General Exam: Positive: Alert, Cooperative, No Acute Distress Eye Exam: Positive: PERRLA, Conjunctiva & lids normal, EOMI; Negative: Sclera icteric ENT Exam: Positive: Atraumatic, Mucous membr. moist/pink, Pharynx Normal Neck Exam: Positive: Supple; Negative: JVD, thyromegaly Chest Exam: Positive: Clear to auscultation, Normal air movement Heart Exam: Positive: Rate Normal, Regular Rhythm, Normal S1, Normal S2; Negative: Murmurs, Rubs Abdomen Exam: Positive: Normal bowel sounds, Soft; Negative: Tenderness, Hepatospenomegaly Extremity Exam: Positive: Edema (trace); Negative: Clubbing, Cyanosis Skin Exam: Positive: Nl turgor and temperature; Negative: Breakdown, Lesion Neuro Exam: Positive: Normal Gait, Normal Speech, Cranial Nerves 3-12 NL, Reflexes 2+ Psych Exam: Positive: Oriented x 3, Other (depressed and sad) Vital Signs Vital Signs Date Time Temp Pulse Resp B/P (MAP) Pulse Ox O2 Delivery O2 Flow Rate FiO2 02/16/20 17:22 118 140/88 (105) 02/16/20 14:40 97.9 18 97 Room Air Laboratory Data Labs 24H Laboratory Tests 2 02/16/20 14:36: Nucleated Red Blood Cells % (auto) 0.0, Anion Gap 18H, Glomerular Filtration Rate 49.9L, Calcium Level 8.9, Total Bilirubin 0.3, Direct Bilirubin < 0.1, Aspartate Amino Transf (AST/SGOT) 19, Alanine Aminotransferase (ALT/SGPT) 37, Alkaline Phosphatase 86, Total Protein 7.7, Albumin 4.0, Albumin/Globulin Ratio 1.1L, Thyroid Stimulating Hormone (TSH) 1.290, Salicylates Level < 1.7L, Urine Opiates Screen NEGATIVE, Urine Methadone Screen NEGATIVE, Acetaminophen Level < 2.0L, Urine Barbiturates Screen NEGATIVE, Urine Phencyclidine Screen NEGATIVE, Urine Amphetamines Screen NEGATIVE, Urine Benzodiazepines Screen NEGATIVE, Urine Cocaine Metabolite Screen NEGATIVE, Urine Cannabinoids Screen NEGATIVE, Ethyl Alcohol Level 0.129H 02/16/20 16:35: Blood Gas Bicarbonate Standard 14.4, Venous Blood pH 7.234L, Venous Blood Partial Pressure CO2 31.7L, Venous Blood Partial Pressure O2 111.0H, Venous Blood Total Carbon Dioxide 14.1L, Venous Blood HCO3 13.1L, Venous Blood Oxygen Saturation 97.5H, Venous Blood Base Excess -13.1L, Coronavirus (COVID-19)(PCR) NEGATIVE, Influenza Type A (RT-PCR) NEGATIVE, Influenza Type B (RT-PCR) NEGATIVE, Respiratory Syncytial Virus (PCR) NEGATIVE CBC/BMP Laboratory Tests 02/16/20 14:36 Assessment/Plan This is a 59 year old female came to the ED felling depressed with suicidal ideas. She was having suicidal thought but no definite plan. She was intoxicated on arrival . She stated that she was drinking in the morning prior to coming to the hospital. Her alcohol level was 0.129. Labs revealed high anion gap metabolic acidosis so hospitalist was consulted for admission. She complains of feeling very sad and upset. She says she is not a regular drinker. She bought some wine for [employer]. She was sad and upset this morning and started drinking. Then started having suicidal thoughts. Her of 35 years left her in July this year. She then entered into another relationship which also ended recently. She recently moved up here in November and has not established any PMD here. Her daughter lives here. She is being admitted to medicine for metabolic acidosis possibly alcoholic acidosis. Will be evaluated by Psych after medically cleared High anion gap metabolic acidosis due to alcohol I do not think this is DKA as her betahydroxybutyrate is only 4.6 and she has been taking her insulins. will give IVF. Diabetes levemir and lispro FS AC and HS. Depression with suicidal ideas, but no definite plans Multiple suicide attempts 8 to 9 times in the past sitter psych eval once medically cleared. Bipolar 1 Disorder/ adjustment disorder lamotrigine, duloxetine,trazodone, olanzepine. Hypothyroidism synthroid Hypertension losartan HLD storvasttin Obesity/ ALISSON Has not used CPAP for 6 months. GERD omeprazole Plan / VTE VTE Prophylaxis Ordered?: Yes DENIS MCKEON MD Feb 16, 2020 18:06
[2020-02-16 21:40] VITALS: BP 155/79
[2020-02-16] MEDS: NS 1,000 ML IV SCH (22:10)
[2020-02-16] MEDS: ATORVASTATIN 20 MG TAB PO SCH (22:11)
[2020-02-16] MEDS: traZODone 50 MG TAB PO SCH (22:11)
[2020-02-16] MEDS: OLANZapine 5 MG TAB PO SCH (22:11)
[2020-02-16] MEDS: HumaLOG INSULIN (NovoLOG) PER UNIT SC SCH (22:12)
[2020-02-16] MEDS: LEVEMIR (INSULIN DETEMIR) 1 UNITS/0.01ML SC SCH (22:16)
[2020-02-17] MEDS: NS 1,000 ML IV SCH (04:46)
[2020-02-17] MEDS: LEVOTHYROXINE 125MCG TABLET (0.125MG) PO SCH (05:57)
[2020-02-17 06:00] VITALS: BP 151/86
[2020-02-17 06:26] LABS: BASO # 0.1 10^3/uL (0.0-0.2); BASO % 0.6 % (0.0-1.0); EOS # 0.2 10^3/uL (0.0-0.5); EOS % 2.6 % (0.0-3.0); HEMATOCRIT 37.9 % (36.0-47.0); HEMOGLOBIN 12.4 g/dl (12.0-15.5); LYMPH % 35.9 % (24.0-44.0); MEAN CORPUSCULAR HEMOGLOBIN 27.3 pg (27.0-33.0); MEAN CORPUSCULAR HGB CONC 32.7 g/dl (32.0-36.5); MEAN CORPUSCULAR VOLUME 83.5 fl (80.0-96.0); MONO # 0.7 10^3/uL (0.0-0.8); MONO % 7.8 % (0.0-5.0); NEUTROPHILS # 4.4 10^3/uL (1.5-8.5); NEUTROPHILS % 52.9 % (36.0-66.0); PLATELET COUNT, AUTOMATED 232 10^3/uL (150-450); RED BLOOD COUNT 4.54 10^6/uL (4.00-5.40); WHITE BLOOD COUNT 8.4 10^3/uL (4.0-10.0)
[2020-02-17 06:51] LABS: BLOOD UREA NITROGEN 18 MG/DL (7-18); CALCIUM LEVEL 8.3 MG/DL (8.5-10.1); CARBON DIOXIDE LEVEL 24 MEQ/L (21-32); CHLORIDE LEVEL 109 MEQ/L (98-107); CREATININE FOR GFR 0.96 MG/DL (0.55-1.30); GLOMERULAR FILTRATION RATE > 60.0 (>51); GLUCOSE, FASTING 99 MG/DL (70-100); POTASSIUM SERUM 3.6 MEQ/L (3.5-5.1); SODIUM LEVEL 142 MEQ/L (136-145)
[2020-02-17] MEDS: HumaLOG INSULIN (NovoLOG) PER UNIT SC SCH ×4 (07:30→21:00)
[2020-02-17] MEDS: LEVEMIR (INSULIN DETEMIR) 1 UNITS/0.01ML SC SCH ×3 (09:00→21:00)
[2020-02-17] MEDS: ENOXAPARIN 40MG/0.4ML SYRINGE (J1650 PER 10MG) SC SCH (09:00)
[2020-02-17] MEDS: D5W/0.45% SODIUM CHLORIDE 1,000 ML IV SCH ×3 (10:01→22:49)
[2020-02-17] MEDS: LOSARTAN 50MG TABLET PO SCH (10:02)
[2020-02-17] MEDS: OLANZapine 5 MG TAB PO SCH ×2 (10:02→22:40)
[2020-02-17] MEDS: DULoxetine 30 MG CAP (CYMBALTA) PO SCH (10:02)
[2020-02-17] MEDS: lamoTRIgine 25 MG TAB PO SCH (10:02)
[2020-02-17] MEDS: POTASSIUM CHLORIDE 10 MEQ SR TABLET PO SCH ×2 (12:45→22:41)
[2020-02-17 18:00] VITALS: BP 135/61
[2020-02-17 22:00] VITALS: BP 126/67
[2020-02-17] MEDS: traZODone 50 MG TAB PO SCH (22:40)
[2020-02-17] MEDS: ATORVASTATIN 20 MG TAB PO SCH (22:41)
[2020-02-18] MEDS: LEVOTHYROXINE 125MCG TABLET (0.125MG) PO SCH (05:37)
[2020-02-18] MEDS: D5W/0.45% SODIUM CHLORIDE 1,000 ML IV SCH ×3 (05:38→21:24)
[2020-02-18 06:00] VITALS: BP 144/80
[2020-02-18 06:27] LABS: BASO % 0.7 % (0.0-1.0); EOS # 0.3 10^3/uL (0.0-0.5); EOS % 4.5 % (0.0-3.0); HEMOGLOBIN 12.9 g/dl (12.0-15.5); LYMPH # 2.5 10^3/uL (1.5-5.0); LYMPH % 45.3 % (24.0-44.0); MEAN CORPUSCULAR HEMOGLOBIN 27.3 pg (27.0-33.0); MEAN CORPUSCULAR HGB CONC 33.1 g/dl (32.0-36.5); MEAN CORPUSCULAR VOLUME 82.5 fl (80.0-96.0); MONO # 0.4 10^3/uL (0.0-0.8); MONO % 7.5 % (0.0-5.0); NEUTROPHILS # 2.3 10^3/uL (1.5-8.5); NEUTROPHILS % 41.6 % (36.0-66.0); PLATELET COUNT, AUTOMATED 227 10^3/uL (150-450); RED BLOOD COUNT 4.73 10^6/uL (4.00-5.40); WHITE BLOOD COUNT 5.6 10^3/uL (4.0-10.0)
[2020-02-18 06:54] LABS: BLOOD UREA NITROGEN 15 MG/DL (7-18); CALCIUM LEVEL 8.6 MG/DL (8.5-10.1); CARBON DIOXIDE LEVEL 23 MEQ/L (21-32); CHLORIDE LEVEL 113 MEQ/L (98-107); CREATININE FOR GFR 0.99 MG/DL (0.55-1.30); GLOMERULAR FILTRATION RATE > 60.0 (>51); GLUCOSE, FASTING 194 MG/DL (70-100); POTASSIUM SERUM 4.4 MEQ/L (3.5-5.1); SODIUM LEVEL 142 MEQ/L (136-145)
--- NOTE | 2020-02-18 08:46 | CR ---
CONSULTATION DATE: 02/17/2020 REASON FOR CONSULTATION: Ashanti is seen in [address] [place] [address]. She was admitted with high anion gap metabolic acidosis initially attributed to alcohol intake but I think the etiology is actually her Jardiance. HISTORY OF PRESENT ILLNESS: She has been on Jardiance as part of her diabetic regimen and this has been implicated with euglycemic high anion gap diabetic ketoacidosis and indeed she was in diabetic ketoacidosis with elevated ketones and anion gap of 18, pH of 7.2 on her ABG and a blood sugar was only mildly elevated on admission. She fits all the criteria for euglycemic diabetic ketoacidosis. She was given IV fluids which she has responded well to. Overall she feels much better than yesterday. PHYSICAL EXAMINATION: Vital signs: Blood pressure 139/58 and afebrile, 96% O2 saturation. General appearance: Smiling, conversant, alert, no distress. HEENT: Unremarkable. Lungs: Clear. Heart: Regular rate and rhythm. Abdomen: Soft, nontender. Extremities: No peripheral edema. LABS: Anion gap is down to 9. Renal function is normal. Sodium 142, potassium 3.6, BUN 18, creatinine 0.9. Glucose 99. CBC is normal. Blood sugar was 99 this morning, 150 later in the morning. IMPRESSION AND PLAN: 1. Euglycemic diabetic ketoacidosis. This has responded well to the IV fluids. ___ for this is directed towards treating the diabetic ketoacidosis while avoiding hypoglycemia. Towards that end, I changed her IV fluids to D5 half normal saline. I have given her supplemental potassium orally. She needs to maintain her insulin intake to avoid worsening of the diabetic ketoacidosis. Her anion gap has normalized. I do not feel the need to put her on an insulin drip or move her onto the unit. 2. Diabetes. She should stop Jardiance. I talked to her about this. She should not restart this as an outpatient. 3. Hyperlipidemia. Continue Atorvastatin 40 mg daily. 4. Hypothyroidism. Continue levothyroxine 0.125 mcg daily. 5. History of depression. Continue olanzapine 5 mg twice a day, trazodone 150 mg once daily at bedtime, duloxetine 30 mg daily. 6. Alcohol abuse. TFS should see her and offer her treatment options.
[2020-02-18] MEDS: HumaLOG INSULIN (NovoLOG) PER UNIT SC SCH ×4 (08:47→21:26)
[2020-02-18] MEDS: DULoxetine 30 MG CAP (CYMBALTA) PO SCH (08:50)
[2020-02-18] MEDS: POTASSIUM CHLORIDE 10 MEQ SR TABLET PO SCH ×2 (08:50→21:00)
[2020-02-18] MEDS: OLANZapine 5 MG TAB PO SCH ×2 (08:50→21:22)
[2020-02-18] MEDS: lamoTRIgine 25 MG TAB PO SCH (08:50)
[2020-02-18] MEDS: LOSARTAN 50MG TABLET PO SCH (08:51)
[2020-02-18] MEDS: LEVEMIR (INSULIN DETEMIR) 1 UNITS/0.01ML SC SCH ×2 (08:51→21:25)
[2020-02-18] MEDS: ENOXAPARIN 40MG/0.4ML SYRINGE (J1650 PER 10MG) SC SCH (08:52)
--- NOTE | 2020-02-18 09:47 | IPNPDOC ---
Text Note Date of Service The patient was seen on 02/18/20. NOTE Subjective: Patient seen and examined at bedside. Continues to endorse suicidal thoughts, denies SI or HI. Says eating well. Denying pain anywhere. Vital signs stable. Objective: Constitutional: Alert and oriented. NAD HEENT: EOMI, FABIO Cardiovascular: Heart sounds 1+ 2 normal, no added sounds or murmurs Respiratory: Clear to auscultation bilaterally Abdominal: Soft and non-tender Extremities: No pitting edema Neurological: No FND Assessment/Plan: This is a 59 year old female came to the ED felling depressed with suicidal ideas. Found to be intoxicated with high anion gap metabolic acidosis. Admitted for medical management of condition with goal of consulting psych once medically cleared. #High anion gap metabolic acidosis (resolved) -Gap is currently resolved. On admission, it was 18 -Fasting glucose on 02/15 --> 244 -Alcohol vs euglycemic DKA. B-hydroxybutyrate high which may be due to st arvation as well -On maintenance fluids. May D/C tomorrow #Diabetes -Continue with levemir and lispro #Depression -History of 9 suicide attempts over the last 15 years. Last attempted with insulin and klonipin overdose -Currently without definitive plan but endorsing persistent thoughts with suicidal ideas, but no definite plans -Sitter in place -Lives alone, but moved to [place] 2 months ago to be closer to daughter and grandchildren who visit her twice a week. Is able to self cafe. Denies heavy alcohol usage, but notes she has does drink heavily once very few months when she is upset -Will curbside psych tomorrow to determine disposition #Bipolar 1 Disorder/ adjustment disorder -c/w home medications lamotrigine, duloxetine,trazodone, olanzapine. #Hypothyroidism -c/w home medication synthroid #Hypertension (currently normotensive) -c/w home medication losartan #HLD -c/w home medication astorvasttin #Obesity/ ALISSON -Has not used CPAP for 6 months. #GERD -c/w home medication omeprazole DVT PPX: Enoxaparin daily Dispo: Pending psych eval. Home vs inpatient psych due to hx of suicide attempts Case discussed with Dr. Ryne Biggs MD Hospitalist Resident I A Obduliof, have independently examined this patient and performed my own physical exam, as well as reviewed the documentation and edited where necessary. I have discussed in detail with the resident / student the findings and plan of treatment as documented by the resident / student and edited their note. I agree with their findings and treatment plan and have edited their documentation. I will continue to follow the patient during this hospital stay. Psych consult Diflucan for likely yeast infection VS,Fishbone, I+O VS, Fishbone, I+O Laboratory Tests 02/18/20 05:42 Vital Signs Date Time Temp Pulse Resp B/P (MAP) Pulse Ox O2 Delivery O2 Flow Rate FiO2 02/18/20 08:51 144/76 02/18/20 06:00 97.7 95 16 97 Room Air I&O- Last 24 Hours up to 6 AM 02/18/20 06:00 Intake Total 4540 ml Output Total 0 ml Balance 4540 ml BING BIGGS M.D.,PGY-2 Feb 18, 2020 09:47 DANIELLE DUPREE MD Feb 19, 2020 15:14
[2020-02-18 14:00] VITALS: BP 133/55
[2020-02-18] MEDS: ATORVASTATIN 20 MG TAB PO SCH (21:22)
[2020-02-18] MEDS: traZODone 50 MG TAB PO SCH (21:22)
[2020-02-18 22:00] VITALS: BP 149/82
[2020-02-19] MEDS: LEVOTHYROXINE 125MCG TABLET (0.125MG) PO SCH (05:22)
[2020-02-19] MEDS: D5W/0.45% SODIUM CHLORIDE 1,000 ML IV SCH (05:23)
[2020-02-19 06:00] VITALS: BP 141/76
[2020-02-19 06:43] LABS: BASO % 0.8 % (0.0-1.0); EOS # 0.2 10^3/uL (0.0-0.5); EOS % 3.6 % (0.0-3.0); HEMATOCRIT 38.1 % (36.0-47.0); HEMOGLOBIN 12.4 g/dl (12.0-15.5); LYMPH # 2.3 10^3/uL (1.5-5.0); LYMPH % 44.5 % (24.0-44.0); MEAN CORPUSCULAR HEMOGLOBIN 27.2 pg (27.0-33.0); MEAN CORPUSCULAR HGB CONC 32.5 g/dl (32.0-36.5); MEAN CORPUSCULAR VOLUME 83.6 fl (80.0-96.0); MONO # 0.4 10^3/uL (0.0-0.8); MONO % 7.3 % (0.0-5.0); NEUTROPHILS # 2.3 10^3/uL (1.5-8.5); NEUTROPHILS % 43.6 % (36.0-66.0); PLATELET COUNT, AUTOMATED 201 10^3/uL (150-450); RED BLOOD COUNT 4.56 10^6/uL (4.00-5.40); WHITE BLOOD COUNT 5.2 10^3/uL (4.0-10.0)
[2020-02-19 07:40] LABS: BLOOD UREA NITROGEN 14 MG/DL (7-18); CALCIUM LEVEL 8.6 MG/DL (8.5-10.1); CARBON DIOXIDE LEVEL 23 MEQ/L (21-32); CHLORIDE LEVEL 110 MEQ/L (98-107); CREATININE FOR GFR 0.92 MG/DL (0.55-1.30); GLOMERULAR FILTRATION RATE > 60.0 (>51); GLUCOSE, FASTING 240 MG/DL (70-100); SODIUM LEVEL 139 MEQ/L (136-145)
[2020-02-19] MEDS: POTASSIUM CHLORIDE 10 MEQ SR TABLET PO SCH ×2 (07:50→21:27)
[2020-02-19] MEDS: OLANZapine 5 MG TAB PO SCH ×2 (07:50→21:26)
[2020-02-19] MEDS: lamoTRIgine 25 MG TAB PO SCH (07:50)
[2020-02-19] MEDS: DULoxetine 30 MG CAP (CYMBALTA) PO SCH (07:50)
[2020-02-19] MEDS: HumaLOG INSULIN (NovoLOG) PER UNIT SC SCH ×4 (07:51→21:30)
[2020-02-19] MEDS: ENOXAPARIN 40MG/0.4ML SYRINGE (J1650 PER 10MG) SC SCH (07:51)
[2020-02-19] MEDS: LEVEMIR (INSULIN DETEMIR) 1 UNITS/0.01ML SC SCH ×2 (07:52→21:30)
[2020-02-19] MEDS: LOSARTAN 50MG TABLET PO SCH (07:54)
[2020-02-19] MEDS ORDERED: FLUCONAZOLE 50MG TABLET PO ONE (11:00)
[2020-02-19 14:00] VITALS: BP 147/79
--- NOTE | 2020-02-19 20:47 | IPNPDOC ---
Text Note Date of Service The patient was seen on 02/19/20. NOTE Subjective: Patient seen and examined at bedside. Feels mood is good today. Continues to have thoughts of harming herself paradoxically. No pain anywhere or further complaints. Awaiting Psych eval Objective: Constitutional: Alert and oriented. NAD HEENT: EOMI, FABIO Cardiovascular: Heart sounds 1+ 2 normal, no added sounds or murmurs Respiratory: Clear to auscultation bilaterally Abdominal: Soft and non-tender Extremities: No pitting edema Neurological: No FND Assessment/Plan: This is a 59 year old female came to the ED felling depressed with suicidal ideas. Found to be intoxicated with high anion gap metabolic acidosis. Admitted for medical management of condition with goal of consulting psych once medically cleared. #High anion gap metabolic acidosis (resolved) -Gap is currently resolved. On admission, it was 18 -Fasting glucose on 02/15 --> 244 -Alcohol vs euglycemic DKA. B-hydroxybutyrate high which may be due to starvation as well -S/P Maintenance fluids #Diabetes -Continue with levemir and lispro #Depression -History of 9 suicide attempts over the last 15 years. Last attempted with insulin and klonipin overdose -Currently without definitive plan but endorsing persistent thoughts with suicidal ideas, but no definite plans -Sitter in place -Lives alone, but moved to [place] 2 months ago to be closer to daughter and grandchildren who visit her twice a week. Is able to self cafe. Denies heavy alcohol usage, but notes she has does drink heavily once very few months when she is upset -Psych evaluated patient on 02/18 --> Will discharge to inpatient mental health unit #Bipolar 1 Disorder/ adjustment disorder -c/w home medications lamotrigine, duloxetine,trazodone, olanzapine. #Hypothyroidism -c/w home medication synthroid #Hypertension (currently normotensive) -c/w home medication losartan #HLD -c/w home medication astorvastatin #Obesity/ ALISSON -Has not used CPAP for 6 months. #GERD -c/w home medication omeprazole DVT PPX: Enoxaparin daily Dispo: In patient mental health unit Case discussed with Dr. Ryne Garcia MD Hospitalist Resident Armando LORENZANA I+Armando RAMIRES I+O Laboratory Tests 02/19/20 06:29 Vital Signs Date Time Temp Pulse Resp B/P (MAP) Pulse Ox O2 Delivery O2 Flow Rate FiO2 02/19/20 14:00 97.6 77 16 147/79 (101) 96 Room Air l I&O- Last 24 Hours up to 6 AM 02/19/20 07:00 Intake Total 2400 ml Output Total 0 ml Balance 2400 ml GME ATTESTATION GME ATTESTATION My faculty preceptor for this patient encounter was physically present during the encounter and was fully available. All aspects of the patient interview, examination, medical decision making process, and medical care plan development were reviewed and approved by the faculty preceptor. The faculty preceptor is aware and concurs with the plan as stated in the body of this note and will atte st to such by his/her cosignature. ATTENDING NOTE IJason, have independently examined this patient and performed my own physical exam, as well as reviewed the documentation and edited where necessary. I have discussed in detail with the resident / student the findings and plan of treatment as documented by the resident / student and edited their note. I agree with their findings and treatment plan and have edited their documentation. I will continue to follow the patient during this hospital stay. BING GARCIA M.D.,PGY-2 Feb 19, 2020 20:46 DANIELLE DUPREE MD Feb 21, 2020 19:19
[2020-02-19] MEDS: ATORVASTATIN 20 MG TAB PO SCH (21:26)
[2020-02-19] MEDS: traZODone 50 MG TAB PO SCH (21:26)
[2020-02-19 22:00] VITALS: BP 132/61
[2020-02-20] MEDS: LEVOTHYROXINE 125MCG TABLET (0.125MG) PO SCH (05:36)
[2020-02-20 06:00] VITALS: BP 141/64
[2020-02-20 07:11] LABS: BASO % 0.7 % (0.0-1.0); EOS # 0.2 10^3/uL (0.0-0.5); EOS % 3.7 % (0.0-3.0); HEMATOCRIT 38.6 % (36.0-47.0); HEMOGLOBIN 12.4 g/dl (12.0-15.5); LYMPH # 2.9 10^3/uL (1.5-5.0); LYMPH % 49.2 % (24.0-44.0); MEAN CORPUSCULAR HEMOGLOBIN 26.3 pg (27.0-33.0); MEAN CORPUSCULAR HGB CONC 32.1 g/dl (32.0-36.5); MONO # 0.5 10^3/uL (0.0-0.8); MONO % 7.6 % (0.0-5.0); NEUTROPHILS # 2.3 10^3/uL (1.5-8.5); NEUTROPHILS % 38.5 % (36.0-66.0); PLATELET COUNT, AUTOMATED 234 10^3/uL (150-450); RED BLOOD COUNT 4.71 10^6/uL (4.00-5.40)
[2020-02-20 07:35] LABS: CALCIUM LEVEL 9.1 MG/DL (8.5-10.1); CREATININE FOR GFR 1.02 MG/DL (0.55-1.30); POTASSIUM SERUM 4.4 MEQ/L (3.5-5.1)
[2020-02-20] MEDS: lamoTRIgine 25 MG TAB PO SCH (08:27)
[2020-02-20] MEDS: DULoxetine 30 MG CAP (CYMBALTA) PO SCH (08:27)
[2020-02-20] MEDS: ENOXAPARIN 40MG/0.4ML SYRINGE (J1650 PER 10MG) SC SCH (08:27)
[2020-02-20] MEDS: POTASSIUM CHLORIDE 10 MEQ SR TABLET PO SCH ×3 (08:28→21:58)
[2020-02-20] MEDS: OLANZapine 5 MG TAB PO SCH ×3 (08:28→21:59)
[2020-02-20] MEDS: HumaLOG INSULIN (NovoLOG) PER UNIT SC SCH ×4 (08:28→21:23)
[2020-02-20] MEDS: LEVEMIR (INSULIN DETEMIR) 1 UNITS/0.01ML SC SCH ×2 (08:29→21:23)
[2020-02-20 08:31] VITALS: BP 122/68
[2020-02-20] MEDS: LOSARTAN 50MG TABLET PO SCH (08:31)
--- NOTE | 2020-02-20 09:12 | MHCR ---
[facility] CONSULTATION DATE: 02/19/2020 CHIEF COMPLAINT: Feels depressed. SUBJECTIVE: She is 59 years old. She is , has two children, one of whom lives in the area, a daughter, who she sees a few times a week, the other daughter is in [place]. The patient has a history of depression, clinically very significant, and recently quite severe, has had multiple hospitalizations, suicide attempts as well, and was last hospitalized about a couple of months ago, at [facility], I had seen her on the consult service, just prior to hospitalization. Please refer to my summary for details related to the circumstances of that hospitalization, background history, previous treatments, background information as well. Has several medical problems, which include diabetes mellitus, she is on insulin. She also has hypertension, is obese, GERD, hypothyroidism, obstructive sleep apnea. She says she has not used her CPAP machine for the last six months, and sometimes in the hopes of hat kills her. When she was discharged from the inpatient psychiatric unit, she was discharged on Cymbalta at 30 mg daily, olanzapine 5 mg twice a day, was given for agitation, Lamictal 25 mg in the morning. Other medications include amlodipine, fexofenadine, insulin, Metformin, omeprazole. She says she is due to see the psychiatrist on around March 06, this is at outpatient Psychiatry at [facility], as she has seen a therapist there on a couple of occasions. She says she has recently been feeling good, as she had met somebody on line, says they were communicating for the last few weeks, possibly longer than a month, she says she was told that he was working on a cruise ship, she says she could not see him, but he could see her, and he would indicate there were some problems with his on-line camera. Says that has been going on, although that raises some of her suspicions, and then on [address]ory[place] [address] he asked her for money for treatment for a couple of his children, one of his children. She says he had a few weeks ago proposed to her. When he asked for money, she became suspicious further, particularly when he said that his child would not be treated, and they are in [place], [place]. She says she knew Gabriela has full health coverage, so she suspected that he was not telling the truth. She got the name of the hospital from him, called the hospital, she says she was told there was no such patient there. She decided to end the relationship Dorys Murray, says it was difficult for to do that, particularly when she had been feeling very positive about the relationship itself. She says she was lonely, depressed, further distressed, started drinking, had four drinks, says does not usually drink, other than on Dorys Murray, this was the last time she had any since last year. She felt further depressed and despondent, called her daughter locally, and the patient suggested that she needed to go to the hospital. The daughter came in and brought her in. The patient was feeling suicidal, and further despondent. She was admitted to the Department of Medicine, where she has been seen, as there are some concerns regarding ketoacidosis, and a large anion gap. That has been stabilized, patient has remained depressed, and has fluctuated with these suicidal thoughts. She says they come and go, particularly lately, particularly after the disappointment of the relationship, and its nature. She is vague on whether she has suicidal thoughts at the moment, or whether she intends acting on them. She says she is not sure. She says she does not want to bother others, including her daughter who is here. She says she is in touch with the other daughter, in [place] about once a week. She says in addition to this she received, what she terms as a "nasty text" from her brother on Dorys [place] where he was informing her that he needed to focus on himself, and therefore would not be focusing much on her. She felt as if he was blaming her for his ills, says realizes it is a feeling that she has had. PAST PSYCHIATRIC HISTORY AND BACKGROUND HISTORY: Please refer to previous summaries. MENTAL STATUS EXAM: She is sitting up in the chair by the bedside, is cooperative. There is no agitation, possibly some psychomotor retardation, appears depressed, answers questions briefly and logically, coherently. She has a restricted affect, has suicidal thoughts, vague on firm plans. No homicidal ideations or intents. No evidence of any psychosis. Cognition is grossly intact. No fluctuation of consciousness. Intellect is average. Judgment is questionable. Insight fair. ASSESSMENT: Major depressive disorder, recurrent, severe. Enduring circumstances, and also breakup of recent relationship. Limited support. Long history of psychiatric difficulties, including suicide attempts. She is considerably depressed, with fluctuating suicidal thoughts, some intents, and this is especially after the breakup of her relationship a few days ago, when she broke it off, when he asked her for money. This was an on-line relationship. She started drinking that day, felt hopeless. RECOMMENDATIONS: I would recommend that the patient is hospitalized inpatient for psychiatry, further management and stabilization. This would probably include increasing the Duloxetine, and discontinuing olanzapine (its risks, those of olanzapine, with impact on her blood glucose, when she is already a diabetic, outweigh any benefit at this point). Thank you for consulting me. I have discussed this with the patient's resident, Mike Garcia. If there are any questions, please call. The assessment took 30 minutes.
--- NOTE | 2020-02-20 13:54 | IPNPDOC ---
Text Note Date of Service The patient was seen on 02/20/20. NOTE Subjective: Patient seen and examined at bedside. Says mood is good, but is crying while doing so. Pending bed availability for IMHU Objective: Constitutional: Alert and oriented. NAD HEENT: EOMI, FABIO Cardiovascular: Heart sounds 1+ 2 normal, no added sounds or murmurs Respiratory: Clear to auscultation bilaterally Abdominal: Soft and non-tender Extremities: No pitting edema Neurological: No FND Assessment/Plan: This is a 59 year old female came to the ED felling depressed with suicidal ideas. Found to be intoxicated with high anion gap metabolic acidosis which soon resolved. Psychiatry evaluated patient, pending bed availability for IMHU. #High anion gap metabolic acidosis (resolved) -Gap is currently resolved. On admission, it was 18 -Fasting glucose on 02/15 --> 244 -Alcohol vs euglycemic DKA. B-hydroxybutyrate high which may be due to starvation as well -S/P Maintenance fluids #Diabetes -Continue with levemir and lispro #Depression -History of 9 suicide attempts over the last 15 years. Last attempted with insulin and klonipin overdose -Currently without definitive plan but endorsing persistent thoughts with suicidal ideas, but no definite plans -Sitter in place -Lives alone, but moved to [place] 2 months ago to be closer to daughter and grandchildren who visit her twice a week. Is able to self cafe. Denies heavy alcohol usage, but notes she has does drink heavily once very few months when she is upset -Psych evaluated patient on 02/18 --> Will discharge to inpatient mental health unit #Bipolar 1 Disorder/ adjustment disorder -c/w home medications lamotrigine, duloxetine,trazodone, olanzapine. #Hypothyroidism -c/w home medication synthroid #Hypertension (currently normotensive) -c/w home medication losartan #HLD -c/w home medication astorvastatin #Obesity/ ALISSON -Has not used CPAP for 6 months. #GERD -c/w home medication omeprazole DVT PPX: Enoxaparin daily Dispo: Pending bed availability for inpatient mental health unit Case discussed with Dr. Ryne Garcia MD Hospitalist Resident Armando LORENZANA I+Armando RAMIRES I+O Laboratory Tests 02/20/20 06:08 Vital Signs Date Time Temp Pulse Resp B/P (MAP) Pulse Ox O2 Delivery O2 Flow Rate FiO2 02/20/20 08:31 122/68 02/20/20 06:00 96.3 83 16 99 02/19/20 14:00 Room Air I&O- Last 24 Hours up to 6 AM 02/20/20 06:00 Intake Total 2950 ml Output Total 0 ml Balance 2950 ml GME ATTESTATION GME ATTESTATION My faculty preceptor for this patient encounter was physically present during the encounter and was fully available. All aspects of the patient interview, examination, medical decision making process, and medical care plan development were reviewed and approved by the faculty preceptor. The faculty preceptor is aware and concurs with the plan as stated in the body of this note and will attest to such by his/her cosignature. ATTENDING NOTE IJason, have independently examined this patient and performed my own physical exam, as well as reviewed the documentation and edited where necessary. I have discussed in detail with the resident / student the findings and plan of treatment as documented by the resident / student and edited their note. I agree with their findings and treatment plan and have edited their documentation. I will continue to follow the patient during this hospital stay. Dr Gaines psychiatrist recommends emergency admission to [facility]. Sitter in place until then. BING GARCIA M.D.,PGY-2 Feb 20, 2020 13:54 DANIELLE DUPREE MD Feb 21, 2020 19:25
[2020-02-20 14:00] VITALS: BP 128/69
--- NOTE | 2020-02-20 15:31 | DS.PDOC ---
Discharge Summary General Date of Admission Feb 16, 2020 at 18:28 Date of Discharge 02/20/2020 Discharge Summary PROCEDURES PERFORMED DURING STAY: None ADMITTING DIAGNOSES: 1. Suicidal ideations DISCHARGE DIAGNOSES: 1. resolved high anion gap metabolic acidosis 2. Suicidal ideation necessity inpatient mental health COMPLICATIONS/CHIEF COMPLAINT: Metabolic Acidosis/Suicidal Ideation. HISTORY OF PRESENT ILLNESS: This is a 59 year old female came to the ED felling depressed with suicidal ideas. She was having suicidal thought but no definite plan. She was intoxicated on arrival . She stated that she was drinking in the morning prior to coming to the hospital. Her alcohol level was 0.129. Labs revealed high anion gap metabolic acidosis so hospitalist was consulted for admission. She complains of feeling very sad and upset. She says she is not a regular drinker. She bought some wine for [place]. She was sad and upset this morning and started drinking. Then started having suicidal thoughts. Her of 35 years left her in July this year. She then entered into another relationship which also ended recently. SHe recently moved up here in November and has not established any PMD here. Her daughter lives here. She is being admitted to [facility] for metabolic acidosis possibly alcoholic acidosis. Will be evaluated by Psych after medically cleared HOSPITAL COURSE: This is a 59 year old female came to the ED felling depressed with suicidal ideas. Found to be intoxicated with high anion gap metabolic acidosis which soon resolved with the administration of fluids. Likely alcohol i nduced vs euglycemic DKA. Psychiatry evaluated patient and recommending transfer to inpatient mental health unit given unstable mood and past history of suicide attempts. On 02/19 bed was found and patient to be transferred today. DISCHARGE MEDICATIONS: Please see below. ALLERGIES: Please see below. PHYSICAL EXAMINATION ON DISCHARGE: Constitutional: Alert and oriented. NAD HEENT: EOMI, FABIO Cardiovascular: Heart sounds 1+ 2 normal, no added sounds or murmurs Respiratory: Clear to auscultation bilaterally Abdominal: Soft and non-tender Extremities: No pitting edema Neurological: No FND LABORATORY DATA: Please see below. IMAGING: none ACTIVITY: As tolerated DIET: regular DISPOSITION: to inpatient mental health unit DISCHARGE INSTRUCTIONS: 1. Please continue taking your medications exactly as prescribed 2. Upon discharge from the facility, please follow up with your PCP within 5 days ITEMS TO FOLLOWUP ON ON OUTPATIENT: 1. repeat blood test to ensure anion-gap in blood work has resolved DISCHARGE CONDITION: stable TIME SPENT ON DISCHARGE: 35 min Vital Signs/I&Os Vital Signs Date Time Temp Pulse Resp B/P (MAP) Pulse Ox O2 Delivery O2 Flow Rate FiO2 02/20/20 14:00 98.0 94 15 128/69 (88) 98 Room Air I&O- Last 24 Hours up to 6 AM 02/20/20 06:00 Intake Total 2950 ml Output Total 0 ml Balance 2950 ml Laboratory Data Labs 24H Laboratory Tests 2 02/19/20 16:16: Bedside Glucose (Misc Panel) 216H 02/19/20 20:43: Bedside Glucose (Misc Panel) 281H 02/20/20 06:08: Immature Granulocyte % (Auto) 0.3, Neutrophils (%) (Auto) 38.5, Lymphocytes (%) (Auto) 49.2H, Monocytes (%) (Auto) 7.6H, Eosinophils (%) (Auto) 3.7H, Basophils (%) (Auto) 0.7, Neutrophils # (Auto) 2.3, Lymphocytes # (Auto) 2.9, Monocytes # (Auto) 0.5, Eosinophils # (Auto) 0.2, Basophils # (Auto) 0.0, Nucleated Red Blood Cells % (auto) 0.0, Anion Gap 6L, Glomerular Filtration Rate 59.0, Calcium Level 9.1 02/20/20 11:42: Bedside Glucose (Misc Panel) 206H CBC/BMP Laboratory Tests 02/20/20 06:08 FSBS Laboratory Tests Test 02/19/20 16:16 02/19/20 20:43 02/20/20 11:42 Range/Units Bedside Glucose (Misc Panel) 216 281 206 70-105 MG/DL Discharge Medications Scheduled Atorvastatin Calcium (Atorvastatin Calcium) 40 Mg Tablet, 40 MG PO QHS for ., (Reported) Duloxetine Hcl (Duloxetine HCl) 30 Mg Capsule.dr, 30 MG PO DAILY for ., (Reported) Empagliflozin (Jardiance) 25 Mg Tablet, 25 MG PO DAILY for ., (Reported) Insulin Aspart (Novolog Flexpen) 100 Unit/1 Ml Insuln.pen, 2 UNITS SC AC for ., (Reported) Insulin Glargine,Hum.rec.anlog (Lantus Solostar) 100 Unit/1 Ml Insuln.pen, 70 UNITS SC QHS for ., (Reported) Lamotrigine (Lamotrigine) 25 Mg Tablet, 25 MG PO DAILY for ., (Reported) Levothyroxine Sodium (Levothyroxine Sodium) 125 Mcg Tablet, 125 MCG DAILY for ., (Reported) Losartan Potassium (Losartan Potassium) 100 Mg Tablet, 100 MG PO DAILY for ., (Reported) Metformin HCl (Metformin HCl ER) 500 Mg Tab.er.24h, 1,000 MG PO BID for ., (Reported) Olanzapine (Olanzapine) 5 Mg Tablet, 5 MG PO BID for ., (Reported) Omeprazole (Omeprazole) 40 Mg Capsule.dr, 40 MG DAILY for ., (Reported) Trazodone HCl (Trazodone HCl) 150 Mg Tablet, 150 MG PO QHS for ., (Reported) Scheduled PRN Acetaminophen (Acetaminophen) 500 Mg Tablet, 500 MG PO Q6H PRN for PAIN, (Reported) Allergies Coded Allergies: Sulfa (Sulfonamide Antibiotics) (Verified Allergy, Intermediate, HIVES, 12/20/19) clarithromycin (Verified Allergy, Intermediate, HIVES, 12/20/19) haloperidol (Verified Adverse Reaction, Intermediate, APHASIA, 12/20/19) GME ATTESTATION GME ATTESTATION My faculty preceptor for this patient encounter was physically present during the encounter and was fully available. All aspects of the patient interview, examination, medical decision making process, and medical care plan development were reviewed and approved by the faculty preceptor. The faculty preceptor is aware and concurs with the plan as stated in the body of this note and will attest to such by his/her cosignature. ATTENDING NOTE IJason, have independently examined this patient and performed my own physical exam, as well as reviewed the documentation and edited where necessary. I have discussed in detail with the resident / student the findings and plan of treatment as documented by the resident / student and edited their note. I agree with their findings and treatment plan and have edited their documentation. I will continue to follow the patient during this hospital stay. BING BIGGS M.D.,PGY-2 Feb 20, 2020 15:31 DANIELLE DUPREE MD Feb 21, 2020 19:28
[2020-02-20] MEDS: traZODone 50 MG TAB PO SCH ×2 (21:00→21:59)
[2020-02-20] MEDS: ATORVASTATIN 20 MG TAB PO SCH ×2 (21:00→21:58)
[2020-02-20 22:00] VITALS: BP 110/50
== END 2020-02-20 22:35 | DRG 640 ==
LOC: M ED 14:25 → M ED INP 18:28 → ENRESERV 20:19 → M MSPAV 21:40
PROVIDERS: ADMIT Internal Medicine Nephrology; ATTEND Family Medicine
DX: E87.2 Acidosis (principal); E11.10 Type 2 diabetes mellitus with ketoacidosis without coma; R45.851 Suicidal ideations; F33.2 Major depressive disorder, recurrent severe without psychotic features; F10.129 Alcohol abuse with intoxication, unspecified; E66.9 Obesity, unspecified; Z68.33 Body mass index [BMI] 33.0-33.9, adult; I10 Essential (primary) hypertension; Z79.899 Other long term (current) drug therapy; Z79.4 Long term (current) use of insulin; Z88.2 Allergy status to sulfonamides; Z88.8 Allergy status to other drugs, medicaments and biological substances; G47.33 Obstructive sleep apnea (adult) (pediatric); Z91.19 Patient's noncompliance with other medical treatment and regimen; E03.9 Hypothyroidism, unspecified; K21.9 Gastro-esophageal reflux disease without esophagitis

== ENCOUNTER 2020-02-20 15:54 | Inpatient (IN) | payer MEDICARE, OTHER ==
[~2020-02-20] VITALS: Ht 167.6 cm; Wt 99.3 kg
[~2020-02-20 15:54] MED LIST changes: +LAMO25TA4 PO; +TRAZ1TAB14 PO
[2020-02-20] MEDS ORDERED: MAALOX 30 ML SUSP *UDC PO PRN (16:00)
[2020-02-20] MEDS ORDERED: ACETAMINOPHEN TAB 650MG DOSE (2X325MG) PO PRN (16:00)
[2020-02-20] MEDS ORDERED: MOM 30ML SUSPENSION UDC PO PRN (16:00)
[2020-02-20 22:40] VITALS: BP 139/62
[2020-02-21] MEDS: LEVOTHYROXINE 125MCG TABLET (0.125MG) PO SCH (05:35)
[2020-02-21 06:27] VITALS: BP 129/68
[2020-02-21] MEDS: HumaLOG INSULIN (NovoLOG) PER UNIT SC SCH ×5 (07:30→21:05)
[2020-02-21] MEDS: metFORMIN (GLUCOPHAGE) 1000 MG TABLET PO SCH ×3 (08:21→17:48)
[2020-02-21] MEDS: LOSARTAN 50MG TABLET PO SCH (08:21)
[2020-02-21] MEDS: OMEPRAZOLE 20 MG CAP PO SCH (08:21)
[2020-02-21] MEDS: DULoxetine 30 MG CAP (CYMBALTA) PO SCH (08:21)
[2020-02-21] MEDS: OLANZapine 5 MG TAB PO SCH ×2 (08:21→21:01)
[2020-02-21] MEDS: lamoTRIgine 25 MG TAB PO SCH (08:21)
--- NOTE | 2020-02-21 14:54 | HPEPDOC ---
[facility] Medical History & Physical Date of Admission Feb 20, 2020 Date of Service: Feb 21, 2020 History and Physical Chief complaint: Transferred to inpatient mental health unit after reporting suicidal ideation History of present illness: Patient is a 59-year-old female who was admitted to the inpatient mental health unit after she was discharged from inpatient hospital stay for m etabolic acidosis. She had reported suicidal thoughts while admitted and was only transfer to the inpatient mental health unit under the care of psychiatry. Hospital service was consulted for medical screening evaluation. Currently patient denies any headache, nausea, vomiting, chest pain, shortness breath, palpitations, abdominal pain, constipation, diarrhea, or urinary discomfort. Past Medical History: Bipolar 1 Disorder Multiple suicide attempts 8 to 9 times. Social Anxiety Adjustment Disorder with depression Hypothyroidism Diabetes mellitus type 2 Hypertension HLD Obesity GERD ALISSON on CPAP has not used it for 6 months. Past Surgical History: 2 Appendectomy Carpal tunnel surgery 2 Allergies: See below Medications: See below Family History: - Mother with history of diabetes / HTN - Father with history of diabetes / HTN - No history of malignancies Social History: - She reports that she is a former smoker, uses alcohol occasionally did report the use of marijuana not too long ago - Denies recent travel or sick contacts - Lives alone - Occupation; on disability Review of Systems: 10 point review of systems complete, all negative otherwise stated in HPI Physical exam: - Vitals: BP [129/68], HR [109], RR [18], Sat [99%RA], Temp [97.5F] - General: Sitting up in bed, No acute distress, Speaking in full sentences, AAOx3 - HEENT: NC, AT, PERRLA - CVS: RRR, +S1S2 - Lungs: Fair air entry bilaterally, No appreciable wheezing / rales / rhonchi - Abdomen: Soft, Non-distended, Non-tender - Extremities: No lower extremity edema, No calf tenderness - Neuro: No focal motor or sensory deficit - Skin: No visible rashes Labs: See below Imaging: See below EKG: See below Assessment and Plan: Suicidal ideation - Hx of Bipolar disorder / Social Anxiety / Adjustment disorder / Depression - Multiple suicidal attempts - Admitted to [facility] under the care of psychiatry ALISSON - Not on CPAP Hypothyroidism - c/w Levothyroxine IDDM2 - c/w Metformin and Levemir - Will start ISS Hypertension - BP well controlled - c/w DLP - c/w Atorvastatin Obesity - BMI of 35.3 - Complicating medical care GERD - c/w Omeprazole DVT prophylaxis - Will c/w early ambulation Intern was present for the duration of this history and physical examination Thank you for this consultation. Hospital service will now sign off, please reconsult as needed Vital Signs Vital Signs Date Time Temp Pulse Resp B/P (MAP) Pulse Ox O2 Delivery O2 Flow Rate FiO2 02/21/20 06:27 97.5 109 18 129/68 (88) 99 Room Air Laboratory Data Labs 24H Laboratory Tests 2 02/21/20 05:38: Bedside Glucose (Misc Panel) 218H 02/21/20 12:18: Bedside Glucose (Misc Panel) 216H Home Medications Scheduled Atorvastatin Calcium (Atorvastatin Calcium) 40 Mg Tablet, 40 MG PO QHS for . Duloxetine Hcl (Duloxetine HCl) 30 Mg Capsule.dr, 30 MG PO DAILY for . Empagliflozin (Jardiance) 25 Mg Tablet, 25 MG PO DAILY for . Insulin Aspart (Novolog Flexpen) 100 Unit/1 Ml Insuln.pen, 2 UNITS SC AC for . Insulin Glargine,Hum.rec.anlog (Lantus Solostar) 100 Unit/1 Ml Insuln.pen, 70 UNITS SC QHS for . Lamotrigine (Lamotrigine) 25 Mg Tablet, 25 MG PO DAILY for . Levothyroxine Sodium (Levothyroxine Sodium) 125 Mcg Tablet, 125 MCG DAILY for . Losartan Potassium (Losartan Potassium) 100 Mg Tablet, 100 MG PO DAILY for . Metformin HCl (Metformin HCl ER) 500 Mg Tab.er.24h, 1,000 MG PO BID for . Olanzapine (Olanzapine) 5 Mg Tablet, 5 MG PO BID for . Omeprazole (Omeprazole) 40 Mg Capsule.dr, 40 MG DAILY for . Trazodone HCl (Trazodone HCl) 150 Mg Tablet, 150 MG PO QHS for . Scheduled PRN Acetaminophen (Acetaminophen) 500 Mg Tablet, 500 MG PO Q6H PRN for PAIN Allergies Coded Allergies: Sulfa (Sulfonamide Antibiotics) (Verified Allergy, Intermediate, HIVES, 12/20/19) clarithromycin (Verified Allergy, Intermediate, HIVES, 12/20/19) haloperidol (Verified Adverse Reaction, Intermediate, APHASIA, 12/20/19) DIOMEDES GODINEZ MD Feb 21, 2020 14:54
[2020-02-21] MEDS ORDERED: GLUCAGON INJ 1MG VIAL SC PRN (15:00)
[2020-02-21] MEDS ORDERED: GLUCOSE 4GM CHEW TABLET PO PRN (15:00)
[2020-02-21] MEDS ORDERED: DEXTROSE 50% 50 ML SYRINGE IV PRN (15:00)
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
[2020-02-21 18:00] VITALS: BP 150/75
[2020-02-21] MEDS: ATORVASTATIN 20 MG TAB PO SCH (21:01)
[2020-02-21] MEDS: traZODone 50 MG TAB PO PRN (21:02)
[2020-02-21] MEDS: LEVEMIR (INSULIN DETEMIR) 1 UNITS/0.01ML SC SCH (21:05)
[2020-02-22] MEDS: LEVOTHYROXINE 125MCG TABLET (0.125MG) PO SCH (05:54)
[2020-02-22 06:03] VITALS: BP 136/83
[2020-02-22] MEDS: HumaLOG INSULIN (NovoLOG) PER UNIT SC SCH ×4 (06:52→20:48)
[2020-02-22] MEDS: metFORMIN (GLUCOPHAGE) 1000 MG TABLET PO SCH ×2 (08:40→17:02)
[2020-02-22] MEDS: LOSARTAN 50MG TABLET PO SCH (08:40)
[2020-02-22] MEDS: OLANZapine 5 MG TAB PO SCH ×2 (08:40→20:47)
[2020-02-22] MEDS: lamoTRIgine 25 MG TAB PO SCH (08:40)
[2020-02-22] MEDS: OMEPRAZOLE 20 MG CAP PO SCH (08:40)
[2020-02-22] MEDS: DULoxetine 30 MG CAP (CYMBALTA) PO SCH (08:40)
--- NOTE | 2020-02-22 10:09 | MHIPNPDOC ---
[facility] Progress Note Progress Note DATE OF SERVICE: 02/22/20 Chief Complaint Patient is a 59-year , Disabled, Domiciled, Female who was directly admitted from medical for metabolic acidosis. While on the unit, she had reported suicidal thoughts and low mood. She states, "I have no will to live." HISTORY OF THE PRESENT ILLNESS: Patient is a 59-year , Disabled, Domiciled, Female who was directly admitted from medical for metabolic acidosis. While on the unit, she had reported suicidal thoughts and low mood. Patient was recently discharged from this unit in early December and reports that she had been doing very well since then until she recently met a man on a online dating site. She was depressed on Xmas Terri and was drinking White Russians. According to medical provider, her ETOH use with Jardiance caused Metabolic Acidosis. 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 She received a call from this man requesting her to send $1000 for his daughter who was injured in a trampoline accident where she had broken both legs and her hand and was being hospitalized. Patient confirmed that daughter was not in the hospital and blocked his calls. She stated, "I don't know why he needed money for a hospital if he lives in [facility] - they have [facility]. I knew then he was lying." She then started drinking, feeling down and depressed. She stated during her interview with me, "I have no will to live. I am tired, I stopped using my CPAP machine, I stopped giving myself my insulin." VITAL SIGNS: See below. NEW TEST RESULTS: Chem Strip 238, is worried about sliding scale. CURRENT MEDICATIONS: See below. MENTAL STATUS EXAMINATION: Patient is a 59-year , Disabled, Domiciled, Female who was directly admitted from medical for metabolic acidosis. While on the unit, she had reported suicidal thoughts and low mood. She states, "I have no will to live." In today's interview, she is alert and oriented, calm and cooperative. States "I woke up in a better mood." Maintains eye contain, she is mildly gu arded Speech: Is fluid, conversant, normal rate, tone and volume Language skills are intact Thought processes including: linear and goal oriented Thought content: reports mild depression and anxiety. Denies active suicidal/homicidal ideation, planning or intent, has had fleeting ideations about suicidality. Abstract reasoning, and computation: fair Description of associations: denies, none observed Description of abnormal or psychotic thoughts: denies, none observed. Judgment: fair Insight: fair Orientation: alert and oriented to person, place, time and situation Recent and remote memory: intact Attention span and concentration: good Language: expansive Fund of knowledge: average Mood: Euthymic Mood Affect: reactive DIAGNOSES: Bipolar I Disorder, Recurrent, Depressed Social Anxiety Hypertension Diabetes Mellitus Hypothyroid Obesity GERD ASSESSMENT: Met with patient today, she is reporting that she is in a better mood but continues to have depression and anxiety, denies active suicidal thoughts. She was minimal in her responses, but answered appropriately. Appeared mildly guarded, she is seen on the as withdrawn from peers, staying to herself in the milieu. She made future oriented statements today, she stated at one point in the interview that when she returns home she will start using her CPAP during the night. She reported that her daughter was getting her medications from the [facility] in [place] (low cost pharmacy). She appeared to be actively planning how to get some of her medications as she reports that she has no or limited chem strips. She is not psychotic or manic, reports no auditory of visual hallucinations. She is not observed with any delusions or bizarre thinking. She is observed to be depressed with flat affect. Due to her history of very suicide attempts, I believe that further observation is necessary to determine her stability in the community. No discharge today. MANAGEMENT PLAN: Continue current medication regimen, will discharge patient when she is stable. TIME SPENT: 25 minutes. Vital Signs Vital Signs Date Time Temp Pulse Resp B/P (MAP) Pulse Ox O2 Delivery O2 Flow Rate FiO2 02/22/20 06:03 97.7 84 16 136/83 (100) 95 Room Air Laboratory Data 24H Labs Laboratory Tests 2 02/21/20 12:18: Bedside Glucose (Misc Panel) 216H 02/21/20 17:00: Bedside Glucose (Misc Panel) 234H 02/21/20 21:01: Bedside Glucose (Misc Panel) 292H 02/22/20 05:58: Bedside Glucose (Misc Panel) 238H Current Medications Current Medications Medications (Trade) Dose Ordered Sig/Stacey Route PRN Reason Start Time Stop Time Status Last Admin Dose Admin Acetaminophen (Tylenol Tab) 650 mg Q6HP PRN PO HEADACHE or DISCOMFORT 02/20/20 16:00 Al Hydrox/Mg Hydrox/Simethicone (Mylanta) 30 ml Q4HP PRN PO HEARTBURN/INDIGESTION 02/20/20 16:00 Atorvastatin Calcium (Lipitor) 40 mg QHS PO 02/21/20 21:00 02/21/20 21:01 Dextrose (Dextrose 50%) 25 ml ASDIRECTED PRN IV SEE LABEL COMMENTS 02/21/20 15:00 Duloxetine HCl (Cymbalta) 30 mg DAILY PO 02/21/20 09:00 02/22/20 08:40 Glucagon (Glucagon) 1 mg ASDIRECTED PRN SC SEE LABEL COMMENTS 02/21/20 15:00 Glucose (Glucose) 16 GM ASDIRECTED PRN PO SEE LABEL COMMENTS 02/21/20 15:00 Home Med (Med Rec Complete!) ASDIRECTED XX 02/20/20 23:00 02/20/20 22:59 DC Insulin Detemir (Levemir Insulin) 70 units QHS MT 02/21/20 21:00 02/21/20 21:05 Insulin Human Lispro (HumaLOG INSULIN) 2 units AC MT 02/21/20 07:30 02/21/20 14:51 DC 02/21/20 12:23 Insulin Human Lispro (HumaLOG INSULIN) SEE PROTOCOL TABLE AC MT 02/21/20 17:30 02/22/20 06:52 Insulin Human Lispro (HumaLOG INSULIN) [facility]OTOC[facility] 02/21/20 21:00 02/21/20 21:05 Lamotrigine (LaMICtal) 25 mg QAM PO 02/21/20 09:00 02/22/20 08:40 Levothyroxine Sodium (Synthroid) 125 mcg DAILY@06 PO 02/21/20 06:00 02/22/20 05:54 Losartan Potassium (Cozaar) 100 mg DAILY PO 02/21/20 09:00 02/22/20 08:40 Magnesium Hydroxide (Milk Of Magnesia) 30 ml DAILYPRN PRN PO CONSTIPATION 02/20/20 16:00 Metformin HCl (Glucophage) 1,000 mg BID@08,18 PO 02/21/20 08:00 02/22/20 08:40 Miscellaneous (Unresolved Clarification Entry) SEE LABEL COMMENTS DAILY XX 02/20/20 09:00 02/21/20 08:02 DC Olanzapine (ZyPREXA) 5 mg BID PO 02/21/20 09:00 02/22/20 08:40 Omeprazole (PriLOSEC) 40 mg DAILY PO 02/21/20 09:00 02/22/20 08:40 Trazodone HCl (Desyrel) 150 mg QHSP PRN PO INSOMNIA 02/20/20 16:00 02/21/20 21:02 Allergies Coded Allergies: Sulfa (Sulfonamide Antibiotics) (Verified Allergy, Intermediate, HIVES, 12/20/19) clarithromycin (Verified Allergy, Intermediate, HIVES, 12/20/19) haloperidol (Verified Adverse Reaction, Intermediate, APHASIA, 12/20/19) ANAIS SANDOVAL NP Feb 22, 2020 10:09
[2020-02-22 18:08] VITALS: BP 153/71
[2020-02-22] MEDS: ATORVASTATIN 20 MG TAB PO SCH (20:47)
[2020-02-22] MEDS: traZODone 50 MG TAB PO PRN (20:52)
[2020-02-22] MEDS: LEVEMIR (INSULIN DETEMIR) 1 UNITS/0.01ML SC SCH (20:54)
[2020-02-23 05:50] VITALS: BP 143/61
[2020-02-23] MEDS: LEVOTHYROXINE 125MCG TABLET (0.125MG) PO SCH (05:58)
[2020-02-23] MEDS: HumaLOG INSULIN (NovoLOG) PER UNIT SC SCH ×2 (07:01→12:05)
[2020-02-23] MEDS: lamoTRIgine 25 MG TAB PO SCH (08:52)
[2020-02-23] MEDS: metFORMIN (GLUCOPHAGE) 1000 MG TABLET PO SCH (08:52)
[2020-02-23 08:53] VITALS: BP 160/73
[2020-02-23] MEDS: LOSARTAN 50MG TABLET PO SCH (08:53)
[2020-02-23] MEDS: OMEPRAZOLE 20 MG CAP PO SCH (08:54)
[2020-02-23] MEDS: OLANZapine 5 MG TAB PO SCH (08:54)
[2020-02-23] MEDS: DULoxetine 30 MG CAP (CYMBALTA) PO SCH (08:55)
[2020-02-23] MEDS ORDERED: OLAN5TAB PO (09:48)
[2020-02-23] MEDS ORDERED: TRAZ1TAB14 PO (09:48)
[2020-02-23] MEDS ORDERED: LAMO25TA4 PO (09:48)
--- NOTE | 2020-02-23 10:30 | MHDSPDOC ---
[facility] Discharge Summary Discharge Summary DATE OF ADMISSION: Feb 20, 2020 at 22:32 DATE OF DISCHARGE: February 23, 2020 at 1012 DISCHARGE DIAGNOSES: Bipolar I Disorder, Recurrent, Depressed Social Anxiety Hypertension Diabetes Mellitus Hypothyroid Obesity GERD REASON FOR ADMISSION: Patient is a 59-year , Disabled, Domiciled, Female who was directly admitted from medical for metabolic acidosis. While on the unit, she had reported suicidal thoughts and low mood. Patient was recently discharged from this unit in early December and reports that she had been doing very well since then until she recently met a man on a online dating site. She was depressed on Xmas Terri and was drinking White Russians. According to medical provider, her ETOH use with Jardiance caused Metabolic Acidosis. 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 She received a call from this man requesting her to send $1000 for his daughter who was injured in a trampoline accident where she had broken both legs and her hand and was being hospitalized. Patient confirmed that daughter was not in the hospital and blocked his calls. She stated, "I don't know why he needed money for a hospital if he lives in [facility] - they have [facility]. I knew then he was lying." She then started drinking, feeling down and depressed. She stated during her interview with me, "I have no will to live. I am tired, I stopped using my CPAP machine, I stopped giving myself my insulin." CONSULTANTS INVOLVED: See Medical H + P by Hospitalist TREATMENT AND PROGRESS ON THE UNIT: Patient was admitted to the [facility] on a 9.39 legal status he was afforded the following treatment modalities: 1) Individual Therapy 2) Group Therapy 3) Medication Management 4) Milieu Therapy 5) Safe Environment HOSPITAL COURSE: Patient was admitted to psychiatric from medical after she was taken to ED and due to her ETOH intake and use of Jardiance was admitted initially on a medical floor for Metabolic Acidosis. She made vague suicidal statements and was subsequently admitted to [facility]. Patient was recently discharged from [facility] in early December and she stated that she was stable, until she met someone on-line who had promised her love and marriage. She states that she knew she was being scammed when he was asking her for her banking account information in order to "send her money." Recently she states he then tried to get her to send him money to him when his daughter injured herself. Patient states that she felt doubtful that his daughter was hurt or needed money because this man supposedly lives in [place] where there should be [facility]. Due to these events, she became depressed. She states that she was drinking because she was hopeful that drinking would elevate her mood as it has in the past, but she reports that she had no idea that she would become physically ill. She states that she was not actively suicidal or planning any attempts. She reports sadness and feeling lonely and wanting to give up because this is two men that have rejected or have caused her emotional distress in a year. DISCHARGE ASSESSMENT: In today's interview patient is alert and oriented, calm and cooperative. She states that she is ready to return home, denies having thoughts about self-harm, denies planning or intent to kill herself. She denies any increase in depression, reports continued low mood because she feels heartbroken. She is not observed and denies damir, psychotic symptoms, delusions, bizarre thinking, ruminations, obsessions, auditory or visual hallu cinations. During the interview, patient demonstrates that she is well-educated on her medications and only requested renewals on Lamictal, Trazodone and Zyprexa. All other medications she affirmed only needed to be continued. At this time, patient is future oriented, is medically stable and meets criteria for discharge today. MENTAL STATUS EXAMINATION ON DISCHARGE: Patient is a 59-year , Disabled, Domiciled, Female who was directly admitted from medical for metabolic acidosis. While on the unit, she had reported suicidal thoughts and low mood. She states, "I have no will to live." In today's interview, she is alert and oriented, calm and cooperative. States "I am in a better mood." Speech: Is fluid, conversant, normal rate, tone and volume Language skills are intact Thought processes including: linear and goal oriented Thought content: denies depression and anxiety. Denies suicidal/homicidal ideation, planning or intent. Abstract reasoning, and computation: fair Description of associations: denies, none observed Description of abnormal or psychotic thoughts: denies, none observed. Judgment: fair Insight: fair Orientation: alert and oriented to person, place, time and situation Recent and remote memory: intact Attention span and concentration: good Language: expansive Fund of knowledge: average Mood: Euthymic Mood Affect: Flat MEDICATIONS ON DISCHARGE: Patient continued on all her home medications. No psychiatric medication changes occurred in this hospitalization. PLAN/FOLLOWUP ARRANGEMENTS: Patient to follow up with [facility] - she has an appointment with Dr. Cassidy on 03/06/20 The amount of time spent in the coordination of care for this patient was approximately 25 minutes. Vital Signs/I&Os Vital Signs Date Time Temp Pulse Resp B/P (MAP) Pulse Ox O2 Delivery O2 Flow Rate FiO2 02/23/20 08:53 160/73 02/23/20 05:50 97.3 95 18 96 Room Air Laboratory Data Labs 24H Laboratory Tests 2 02/22/20 12:07: Bedside Glucose (Misc Panel) 265H 02/22/20 16:59: Bedside Glucose (Misc Panel) 248H 02/22/20 20:43: Bedside Glucose (Misc Panel) 254H 02/23/20 06:03: Bedside Glucose (Misc Panel) 225H Medications Scheduled Atorvastatin Calcium (Atorvastatin Calcium) 40 Mg Tablet, 40 MG PO QHS for ., (Reported) Duloxetine Hcl (Duloxetine HCl) 30 Mg Capsule.dr, 30 MG PO DAILY for ., (Reported) Insulin Aspart (Novolog Flexpen) 100 Unit/1 Ml Insuln.pen, 2 UNITS SC AC for ., (Reported) Insulin Glargine,Hum.rec.anlog (Lantus Solostar) 100 Unit/1 Ml Insuln.pen, 70 UNITS SC QHS for ., (Reported) Lamotrigine (Lamotrigine) 25 Mg Tablet, 25 MG PO DAILY for Mood Stabilization, #7 Levothyroxine Sodium (Levothyroxine Sodium) 125 Mcg Tablet, 125 MCG DAILY for ., (Reported) Losartan Potassium (Losartan Potassium) 100 Mg Tablet, 100 MG PO DAILY for ., (Reported) Metformin HCl (Metformin HCl ER) 500 Mg Tab.er.24h, 1,000 MG PO BID for ., (Reported) Olanzapine (Olanzapine) 5 Mg Tablet, 5 MG PO BID for Antipsychotic, #14 Omeprazole (Omeprazole) 40 Mg Capsule.dr, 40 MG DAILY for ., (Reported) Trazodone HCl (Trazodone HCl) 150 Mg Tablet, 150 MG PO QHS for Insomnia, #7 Scheduled PRN Acetaminophen (Acetaminophen) 500 Mg Tablet, 500 MG PO Q6H PRN for PAIN, (Reported) Allergies Coded Allergies: Sulfa (Sulfonamide Antibiotics) (Verified Allergy, Intermediate, HIVES, 12/20/19) clarithromycin (Verified Allergy, Intermediate, HIVES, 12/20/19) haloperidol (Verified Adverse Reaction, Intermediate, APHASIA, 12/20/19) ANAIS SANDOVAL NP Feb 23, 2020 10:30
== END 2020-02-23 12:58 | disposition home or self-care (01) | DRG 885 ==
LOC: M PSY 22:32
PROVIDERS: ADMIT Psychiatry & Neurology Psychiatry; ATTEND Psychiatry & Neurology Psychiatry
DX: F33.9 Major depressive disorder, recurrent, unspecified (principal); I10 Essential (primary) hypertension; E11.9 Type 2 diabetes mellitus without complications; E03.9 Hypothyroidism, unspecified; E66.9 Obesity, unspecified; K21.9 Gastro-esophageal reflux disease without esophagitis; Z79.899 Other long term (current) drug therapy; Z79.4 Long term (current) use of insulin; Z88.2 Allergy status to sulfonamides; Z88.8 Allergy status to other drugs, medicaments and biological substances; G47.33 Obstructive sleep apnea (adult) (pediatric)

== ENCOUNTER → 2020-04-09 | Outpatient (CLI) | payer OTHER ==
[~2020-04-09] MED LIST changes: -BUPR150T3 PO; +BUPR150T4 PO
--- NOTE | 2020-04-09 16:10 | REPMRS ---
Patient History The patient states she has not had a clinical breast exam in over a year. Patient is postmenopausal. No known family history of cancer. Digital Woman Screen Mammo: April 09, 2020 - Exam #: [id number] Bilateral CC and MLO view(s) were taken. Technologist: Aiyana Johnson, Technologist No prior studies available for comparison. FINDINGS: There are scattered fibroglandular densities. The Volpara volumetric breast density category is: B. There is no evidence of dominant mass, architectural distortion, or grouped microcalcification typical of malignancy. 3-D tomosynthesis shows no additional findings. Assessment: BI-RADS/ACR category 1 mammogram. Negative Mammogram. Recommendation Routine screening mammogram of both breasts in 1 year (for women over age 40). This patient's [facility] Lifetime Breast Cancer RIsk is estimated at 5.7 %. This mammogram was interpreted with the aid of an FDA-approved computer-aided dectection system. Electronically Signed By: Bobby Ritter MD 04/09/20 1097
== END ==
LOC: M WHC 15:03
PROVIDERS: ATTEND Physician Assistant
DX: Z12.31 Encounter for screening mammogram for malignant neoplasm of breast (principal)

== ENCOUNTER 2020-05-06 15:22 | Inpatient (IN) | payer OTHER ==
[~2020-05-06] VITALS: Ht 170.2 cm; Wt 101.7 kg
[~2020-05-06 15:22] MED LIST changes: +BUPR150T12 PO; -BUPR150T4 PO
[2020-05-06] MEDS ORDERED: HUMU70IN SC (15:32)
[2020-05-06] MEDS ORDERED: JANU25TA PO (15:32)
[2020-05-06] MEDS ORDERED: OLAN5TAB PO ×2 (15:32→18:59)
[2020-05-06] MEDS ORDERED: MECLIZINE 25 MG TABLET PO ONE (16:00)
[2020-05-06 16:37] LABS: BASO # 0.1 10^3/uL (0.0-0.2); BASO % 0.6 % (0.0-1.0); EOS # 0.2 10^3/uL (0.0-0.5); EOS % 2.7 % (0.0-3.0); HEMATOCRIT 41.2 % (36.0-47.0); HEMOGLOBIN 13.5 g/dl (12.0-15.5); LYMPH # 3.3 10^3/uL (1.5-5.0); LYMPH % 42.6 % (24.0-44.0); MEAN CORPUSCULAR HEMOGLOBIN 26.3 pg (27.0-33.0); MEAN CORPUSCULAR HGB CONC 32.8 g/dl (32.0-36.5); MEAN CORPUSCULAR VOLUME 80.3 fl (80.0-96.0); MONO # 0.6 10^3/uL (0.0-0.8); NEUTROPHILS # 3.7 10^3/uL (1.5-8.5); NEUTROPHILS % 46.8 % (36.0-66.0); PLATELET COUNT, AUTOMATED 248 10^3/uL (150-450); RED BLOOD COUNT 5.13 10^6/uL (4.00-5.40); WHITE BLOOD COUNT 7.8 10^3/uL (4.0-10.0)
--- NOTE | 2020-05-06 16:53 | REP ---
INDICATION: Syncope COMPARISON: 12/20/2019 TECHNIQUE: Axial noncontrast images from the skull base to the vertex with coronal reformations. This CT examination was performed using the following dose reduction techniques: Automated exposure control, adjustment of mA and/or kv according to the patient's size, and use of iterative reconstruction technique. FINDINGS: The ventricles, sulci, and cisterns are normal in position and appearance. Garcia-white differentiation is maintained. No acute intracranial hemorrhage, mass/mass effect, pathology or trauma/injury. No evidence for acute infarction. No extra-axial fluid collection. Calvarium is intact. Paranasal sinuses and mastoid air cells are clear. IMPRESSION: Normal noncontrast head CT. No evidence for acute intracranial pathology or trauma/injury. <Electronically signed by Ovi Teran > 05/06/20 0628
[2020-05-06 17:11] LABS: ALBUMIN 3.8 GM/DL (3.2-5.2); ALT/SGPT 31 U/L (12-78); BILIRUBIN,DIRECT < 0.1 MG/DL (0.0-0.2); BILIRUBIN,TOTAL 0.2 MG/DL (0.2-1.0); BLOOD UREA NITROGEN 25 MG/DL (7-18); CALCIUM LEVEL 9.1 MG/DL (8.5-10.1); CARBON DIOXIDE LEVEL 27 MEQ/L (21-32); CHLORIDE LEVEL 105 MEQ/L (98-107); CK-MB VALUE MASS 3.6 NG/ML (<3.6); CPK CREATINE PHOSPHOKINASE 256 U/L (26-192); CREATININE FOR GFR 1.01 MG/DL (0.55-1.30); GLOMERULAR FILTRATION RATE 59.7 (>51); GLUCOSE, FASTING 217 MG/DL (70-100); MAGNESIUM LEVEL 1.9 MG/DL (1.8-2.4); MB/CK RELATIVE INDEX 1.41 (< OR =4); POTASSIUM SERUM 3.7 MEQ/L (3.5-5.1); SODIUM LEVEL 139 MEQ/L (136-145); TOTAL PROTEIN 7.2 GM/DL (6.4-8.2); TROPONIN I < 0.02 NG/ML (< 0.10)
[2020-05-06] MEDS ORDERED: NS 1,000 ML IV ONE (17:25)
[2020-05-06 18:35] LABS: AMPHETAMINES LEVEL URINE NEGATIVE (NEGATIVE); BARBITURATES URINE NEGATIVE (NEGATIVE); BENZODIAZEPINES URINE NEGATIVE (NEGATIVE); CANNABINOIDS URINE NEGATIVE (NEGATIVE); COCAINE METABOLITE URINE NEGATIVE (NEGATIVE); METHADONE URINE NEGATIVE (NEGATIVE); OPIATES URINE NEGATIVE (NEGATIVE); PHENCYCLIDINE URINE NEGATIVE (NEGATIVE)
[2020-05-06] MEDS ORDERED: TRAZ150T90 PO (18:59)
[2020-05-06] MEDS ORDERED: JARD1TAB3 PO (18:59)
[2020-05-06] MEDS ORDERED: BUPR-332 PO (18:59)
[2020-05-06] MEDS ORDERED: LAMO25TA4 PO (18:59)
[2020-05-06] MEDS ORDERED: METF10004 PO (18:59)
[2020-05-06] MEDS ORDERED: DULO1CAP6 PO (18:59)
--- NOTE | 2020-05-06 19:25 | ECGEPIP ---
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
[2020-05-06 19:33] LABS: RSV AMPLIFICATION NEGATIVE (NEGATIVE)
[2020-05-06] MEDS ORDERED: NICOTINE 21MG/24HR 1 EA TRANSDERMAL TD PRN (20:15)
[2020-05-06] MEDS ORDERED: MOM 30ML SUSPENSION UDC PO PRN (20:15)
[2020-05-06] MEDS ORDERED: ACETAMINOPHEN TAB 650MG DOSE (2X325MG) PO PRN (20:15)
[2020-05-06] MEDS ORDERED: traZODone 50 MG TAB PO SCH (20:15)
[2020-05-06] MEDS ORDERED: MAALOX 30 ML SUSP *UDC PO PRN (20:15)
[2020-05-06] MEDS: metFORMIN (GLUCOPHAGE) 1000 MG TABLET PO SCH (21:01)
[2020-05-06] MEDS: traZODone 50 MG TAB PO SCH (21:01)
[2020-05-06] MEDS: ATORVASTATIN 20 MG TAB PO SCH (21:01)
[2020-05-06 23:32] VITALS: BP 142/72
[2020-05-07 07:06] VITALS: BP 164/84
[2020-05-07] MEDS: metFORMIN (GLUCOPHAGE) 1000 MG TABLET PO SCH ×2 (08:45→20:50)
[2020-05-07] MEDS: SITagliptin 50 MG TAB (JANUVIA) PO SCH (08:45)
[2020-05-07] MEDS: LEVOTHYROXINE 125MCG TABLET (0.125MG) PO SCH (08:46)
[2020-05-07] MEDS: LOSARTAN 50MG TABLET PO SCH (08:46)
[2020-05-07] MEDS ORDERED: OLANZapine 5 MG TAB PO SCH (09:00)
[2020-05-07] MEDS ORDERED: lamoTRIgine 25MG TAB PO SCH ×2 (09:00→21:00)
[2020-05-07] MEDS ORDERED: FLUBLOK(EGG FREE)(QUAD)INFLUENZA VACC 0.5ML SYRINGE 18YRS & OLDER IM ONE (09:00)
[2020-05-07] MEDS: DULoxetine 30 MG CAP (CYMBALTA) PO SCH (12:41)
[2020-05-07] MEDS ORDERED: GLUCOSE 4GM CHEW TABLET PO PRN (12:45)
[2020-05-07] MEDS ORDERED: DEXTROSE 50% 50 ML SYRINGE IV PRN (12:45)
[2020-05-07] MEDS ORDERED: GLUCAGON INJ 1MG VIAL SC PRN (12:45)
--- NOTE | 2020-05-07 12:48 | HPEPDOC ---
[facility] Medical History & Physical Date of Admission May 06, 2020 Date of Service: May 07, 2020 History and Physical Chief complaint: Who presented to [facility] for suicidal ideation History of present illness: Patient is a 59-year-old female who presented to [facility] for suicidal ideation. She was admitted to inpatient mental health unit under the care of psychiatry. Hospitalist service was consulted for medical screening evaluation. She denies any headache, nausea, vomiting, chest pain, shortness breath, palpitations, abdominal pain consultation, diarrhea, or discomfort with urination. Patient had reported that she was experiencing dizziness about 3 days ago that has resolved with meclizine that was provided by the ER. Patient had reported that her right hand fourth digit had some pus drainage around her fingernail, however, this has resolved completely. Patient reports her appetite is fairly normal and denies any changes in her weight. Past Medical History: Bipolar 1 Disorder Multiple suicide attempts 8 to 9 times. Social Anxiety Adjustment Disorder with depression Hypothyroidism Diabetes mellitus type 2 Hypertension HLD Obesity GERD ALISSON on CPAP has not used it for 6 months Past Surgical History: 2 Appendectomy Carpal tunnel surgery 2 Allergies: See below Medications: See below Family History: - Mother and father with history of diabetes / HTN - No history of malignancies Social History: - Reports that she is a former smoker, uses alcohol occasionally; reports that she no longer uses marijuana - Denies recent travel or sick contacts - Lives alone - Occupation; on disability Review of Systems: 10 point review of systems complete, all negative otherwise stated in HPI Physical exam: - Vitals: BP [150/73], HR [98], RR [18], Sat [100%RA], Temp [97.0F] - General: Sitting up in chair, No acute distress, Speaking in full sentences, AAOx3 - HEENT: NC, AT, PERRLA - CVS: RRR, +S1S2 - Lungs: Fair air entry bilaterally, No appreciable wheezing / rales / rhonchi - Abdomen: Soft, Non-distended, Non-tender - Extremities: No lower extremity edema, No calf tenderness - Neuro: No focal motor or sensory deficit - Skin: No visible rashes Labs: See below Imaging: CT head 05/07: Normal non-contrast head CT. No evidence for acute intracranial pathology or trauma/injury. EKG: See below Assessment and Plan: Suicidal ideation - Hx of Bipolar disorder / Social Anxiety / Adjustment disorder / Depression - Multiple suicidal attempts - Admitted to [facility] under the care of psychiatry Recent history of dizziness / vertigo - s/p Meclizine Reported recent R hand 4th digit infection - Physical exam does not reveal any evidence of infection - Hemodynamically stable and afebrile - No leukocytosis - Will hold off on starting any antibiotics at this time ALISSON - Not on CPAP Hypothyroidism - c/w Levothyroxine IDDM2 - c/w Metformin and Sitagliptin - Will hold Insulin NPH / Regular insulin 70/30 - Will start ISS Hypertension - BP well controlled - c/w Losartan DLP - c/w Atorvastatin Obesity - BMI of 35.1 - Complicating medical care GERD - Will resume Omeprazole DVT prophylaxis - Will c/w early ambulation Female mill helper was present throughout the duration of this history and physical examination Thank you for this consultation; hospitalist service will now sign off. Please reconsult as needed. Vital Signs Vital Signs Date Time Temp Pulse Resp B/P (MAP) Pulse Ox O2 Delivery O2 Flow Rate FiO2 05/07/20 08:46 150/73 05/07/20 07:06 97.0 98 18 100 Room Air Laboratory Data Labs 24H Laboratory Tests 2 05/06/20 16:04: Immature Granulocyte % (Auto) 0.3, Neutrophils (%) (Auto) 46.8, Lymphocytes (%) (Auto) 42.6, Monocytes (%) (Auto) 7.0, Eosinophils (%) (Auto) 2.7, Basophils (%) (Auto) 0.6, Neutrophils # (Auto) 3.7, Lymphocytes # (Auto) 3.3, Monocytes # (Auto) 0.6, Eosinophils # (Auto) 0.2, Basophils # (Auto) 0.1, Nucleated Red Blood Cells % (auto) 0.0, Anion Gap 7L, Glomerular Filtration Rate 59.7, Calcium Level 9.1, Magnesium Level 1.9, Total Bilirubin 0.2, Direct Bilirubin < 0.1, Aspartate Amino Transf (AST/SGOT) 13, Alanine Aminotransferase (ALT/SGPT) 31, Alkaline Phosphatase 77, Total Creatine Kinase 256H, Creatine Kinase MB 3.6, Creatine Kinase MB Relative Index 1.41, Troponin I < 0.02, Total Protein 7.2, Albumin 3.8, Albumin/Globulin Ratio 1.1L, Thyroid Stimulating Hormone (TSH) 1.420 05/06/20 18:00: Urine Opiates Screen NEGATIVE, Urine Methadone Screen NEGATIVE, Urine Barbiturates Screen NEGATIVE, Urine Phencyclidine Screen NEGATIVE, Urine Amphetamines Screen NEGATIVE, Urine Benzodiazepines Screen NEGATIVE, Urine Cocaine Metabolite Screen NEGATIVE, Urine Cannabinoids Screen NEGATIVE 05/06/20 18:40: Coronavirus (COVID-19)(PCR) NEGATIVE, Influenza Type A (RT-PCR) NEGATIVE, Influenza Type B (RT-PCR) NEGATIVE, Respiratory Syncytial Virus (PCR) NEGATIVE 05/07/20 07:24: Bedside Glucose (Misc Panel) 252H CBC/BMP Laboratory Tests 05/06/20 16:04 Home Medications Scheduled Atorvastatin Calcium (Atorvastatin Calcium) 40 Mg Tablet, 40 MG PO QHS Duloxetine Hcl (Duloxetine HCl) 30 Mg Capsule.dr, 30 MG PO DAILY Insulin NPH Hum/Reg Insulin Hm (Humulin 70-30 Vial) 100 Unit/1 Ml Vial, 15 UNITS SC BID Lamotrigine (Lamotrigine) 25 Mg Tablet, 25 MG PO DAILY Levothyroxine Sodium (Levothyroxine Sodium) 125 Mcg Tablet, 125 MCG DAILY for . Losartan Potassium (Losartan Potassium) 100 Mg Tablet, 100 MG PO DAILY for . Metformin HCl (Metformin HCl) 1,000 Mg Tablet, 1,000 MG PO BID Olanzapine (Olanzapine) 5 Mg Tablet, 5 MG PO DAILY Omeprazole (Omeprazole) 40 Mg Capsule.dr, 40 MG DAILY for . Sitagliptin Phosphate (Januvia) 25 Mg Tablet, 25 MG PO DAILY Trazodone HCl (Trazodone HCl) 150 Mg Tablet, 150 MG PO QHS Scheduled PRN Acetaminophen (Acetaminophen) 500 Mg Tablet, 500 MG PO Q6H PRN for PAIN Allergies Coded Allergies: Sulfa (Sulfonamide Antibiotics) (Verified Allergy, Intermediate, HIVES, 12/20/19) clarithromycin (Verified Allergy, Intermediate, HIVES, 12/20/19) haloperidol (Verified Adverse Reaction, Intermediate, APHASIA, 12/20/19) DIOMEDES GODINEZ MD May 07, 2020 12:48
[2020-05-07] MEDS: OMEPRAZOLE 20 MG CAP PO SCH ×2 (13:33→13:37)
[2020-05-07] MEDS: HumaLOG INSULIN (NovoLOG) PER UNIT SC SCH ×3 (13:34→20:51)
[2020-05-07 16:24] VITALS: BP 120/58
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
[2020-05-07] MEDS: ATORVASTATIN 20 MG TAB PO SCH (20:50)
[2020-05-07] MEDS: traZODone 50 MG TAB PO SCH (20:50)
[2020-05-07] MEDS: OLANZapine 5 MG TAB PO SCH (20:51)
[2020-05-07] MEDS ORDERED: lamoTRIgine 25MG TAB PO ONE (21:00)
[2020-05-08 06:36] VITALS: BP 125/59
[2020-05-08] MEDS: HumaLOG INSULIN (NovoLOG) PER UNIT SC SCH ×4 (07:09→20:31)
[2020-05-08 07:40] LABS: CHOLESTEROL RISK RATIO 4.852 (<5)
[2020-05-08] MEDS: OLANZapine 5 MG TAB PO SCH ×2 (09:04→20:31)
[2020-05-08] MEDS: DULoxetine 30 MG CAP (CYMBALTA) PO SCH (09:04)
[2020-05-08] MEDS: SITagliptin 50 MG TAB (JANUVIA) PO SCH (09:04)
[2020-05-08] MEDS: OMEPRAZOLE 20 MG CAP PO SCH (09:04)
[2020-05-08] MEDS: LEVOTHYROXINE 125MCG TABLET (0.125MG) PO SCH (09:05)
[2020-05-08] MEDS: metFORMIN (GLUCOPHAGE) 1000 MG TABLET PO SCH ×2 (09:05→20:30)
[2020-05-08] MEDS: LOSARTAN 50MG TABLET PO SCH (09:05)
[2020-05-08 09:24] LABS: HEMOGLOBIN A1c 8.1 %
[2020-05-08] MEDS ORDERED: FLUCONAZOLE 50MG TABLET PO ONE (11:00)
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
[2020-05-08 16:48] VITALS: BP 130/70
[2020-05-08] MEDS: OLANZapine ORAL DISINTEGRATING TAB 5MG PO PRN (19:29)
[2020-05-08] MEDS: ATORVASTATIN 20 MG TAB PO SCH (20:30)
[2020-05-08] MEDS: lamoTRIgine 25MG TAB PO SCH (20:31)
[2020-05-08] MEDS: traZODone 50 MG TAB PO SCH (20:31)
[2020-05-09 06:35] VITALS: BP 128/58
[2020-05-09] MEDS: HumaLOG INSULIN (NovoLOG) PER UNIT SC SCH ×4 (07:12→20:50)
[2020-05-09] MEDS: OMEPRAZOLE 20 MG CAP PO SCH (08:22)
[2020-05-09] MEDS: OLANZapine 5 MG TAB PO SCH ×2 (08:22→20:46)
[2020-05-09] MEDS: LOSARTAN 50MG TABLET PO SCH (08:24)
[2020-05-09] MEDS: LEVOTHYROXINE 125MCG TABLET (0.125MG) PO SCH (08:24)
[2020-05-09] MEDS: DULoxetine 30 MG CAP (CYMBALTA) PO SCH (08:25)
[2020-05-09] MEDS: metFORMIN (GLUCOPHAGE) 1000 MG TABLET PO SCH ×2 (08:25→20:47)
[2020-05-09] MEDS: SITagliptin 50 MG TAB (JANUVIA) PO SCH (08:26)
[2020-05-09] MEDS: OLANZapine ORAL DISINTEGRATING TAB 5MG PO PRN (13:37)
--- NOTE | 2020-05-09 14:51 | MHIPNPDOC ---
[facility] Progress Note Progress Note DATE OF SERVICE: 05/09/20 HISTORY:Patient is a 59 -year-old Single, Disabled, Domiciled , female, who initially came to the ED with complaints of weakness, dizziness and confusions. She had reported that she had two recent falls at home. States, "I am really depressed and it's been gradually getting worse" She reports that she hasn't seen a psychiatrist after her last admission. States that her first 2 appointments was cancelled, and they cancelled her therapy appointment. She is seen at [facility]. She said, "All my meds, need to be increased." Because she has not seen her psychiatrist her primary care provider was only willing to give her Zyprexa 5 mg once daily and not the twice daily dosing. She reports increased depression, poor sleeping, sadness, crying all ti mes during the day. Feels that she is lonely because her Daughter only comes when she needs to go to the store. "I can't afford my insulin, I told my doctor I need to get 70/30 insulin because [facility] is cheaper" States that her Brother (trangendered sister) use to help her but says if she moved back to [place], she will not help her. "[facility] has psychiatric and therapy on the phone - Virtual. I want to use that. Per ED Report: Pt arrived for increased weakness and dizziness, however expressed SI while here. Pt is tearful throughout entire interview. Pt reports, "I don't have to will to live anymore" She states she is tired of taking meds all the time and "still feeling awful" Pt reports 2 recent attempts via overdose and stays here at [facility]. Pt states she has been hospitalized 11 or 12 times since she was 20 and has been diagnosed with Bi-polar. Pt states that it has been "re ally bad" since July when her of 35 years left her. Pt recently ended up here to be closer to her daughter that lives at [place]. Pt does report that her daughter and grandchildren do bring her raymond but the "feeling of being alone" just overshadows everything. Pt feels that her medication need to be increased "or something" Pt has not seen a psychiatrist since her discharge and her PCP did not prescribe the medication as it was upon her discharge. Pt does not feel safe with her thoughts because she does have such a long Hx of overdose attempts and knows that she has the means to do so. Pt reports good appetite but very poor sleep because "my mind never stops." Pt cannot contract for safety at this time. VITAL SIGNS: See below. NEW TEST RESULTS: See below CURRENT MEDICATIONS: See below. MENTAL STATUS EXAMINATION: Patient is a 59 -year-old Single, Disabled, Domiciled , female, who initially came to the ED with complaints of weakness, dizziness and confusions and endorsed suicidal ideations while in the ED General Appearance: well kempt, disheveled, hospital scrubs/clothing Build: overweight Demeanor: engaged in the conversation Eye Contact: avoidant Activity: average Behavior: cooperative Speech: clear, reg/rate,rhythm,volume Mood: depressed, anxious Affect: flat Thought Process: logical/linear Thought Content (Delusions): none reported Thought Content (Other): none reported Thought Content (Aggressive): none reported Perception (Hallucinations): none reported Perception (Other): none reported Cognition (Impairment of): none reported Cognition(Intelligence Est.): average Oriented: Awake, Alert, Oriented times three Insight: fair Judgment: Fair Psychosis: Denies DIAGNOSES: Bipolar I disorder, depressed Social Anxiety Hypertension Diabetes Mellitus Hypothyroid Obesity GERD ASSESSMENT: Reports crying episodes today. Feeling very anxious - had Zyprexa Zydis with good effects. Feels like she has been having mood swings today. Patient was tearful in her interview today, reporting continued depression and anxiety but denies suicidality. States that she needs to stop talking to her on-line friend. Encouraged patient to continue to keep friendship as a platonic friendship but not allow this friend to take money from her, will not allow him to make promises he can't keep or to manipulate her. She states she is lonely but has a plan to get a bike and have opportunities to meet people. She is requesting to be discharged on Thursday MANAGEMENT PLAN: Continue all treatment modalities. Patient will be discharged when she is stable TIME SPENT: 25] minutes. Vital Signs Vital Signs Date Time Temp Pulse Resp B/P (MAP) Pulse Ox O2 Delivery O2 Flow Rate FiO2 05/09/20 08:24 171/81 05/09/20 06:35 97.5 68 18 96 Room Air Laboratory Data 24H Labs Laboratory Tests 2 05/08/20 17:10: Bedside Glucose (Misc Panel) 198H 05/08/20 20:27: Bedside Glucose (Misc Panel) 267H 05/09/20 06:12: Bedside Glucose (Misc Panel) 256H 05/09/20 11:45: Bedside Glucose (Misc Panel) 321H Current Medications Current Medications Medications (Trade) Dose Ordered Sig/Stacey Route PRN Reason Start Time Stop Time Status Last Admin Dose Admin Acetaminophen (Tylenol Tab) 650 mg Q6HP PRN PO HEADACHE or DISCOMFORT 05/06/20 20:15 Al Hydrox/Mg Hydrox/Simethicone (Mylanta) 30 ml Q4HP PRN PO HEARTBURN/INDIGESTION 05/06/20 20:15 Atorvastatin Calcium (Lipitor) 40 mg QHS PO 05/06/20 21:00 05/08/20 20:30 Dextrose (Dextrose 50%) 25 ml ASDIRECTED PRN IV SEE LABEL COMMENTS 05/07/20 12:45 Duloxetine HCl (Cymbalta) 30 mg QAM PO 05/07/20 09:00 05/09/20 08:25 Glucagon (Glucagon) 1 mg ASDIRECTED PRN SC SEE LABEL COMMENTS 05/07/20 12:45 Glucose (Glucose) 16 GM ASDIRECTED PRN PO SEE LABEL COMMENTS 05/07/20 12:45 Home Med (Med Rec Complete!) ASDIRECTED XX 05/06/20 19:00 05/06/20 19:06 DC Insulin Human Lispro (HumaLOG INSULIN) SEE PROTOCOL TABLE AC SC 05/07/20 12:00 05/09/20 11:52 Insulin Human Lispro (HumaLOG INSULIN) SEE PROTOCOL TABLE QHS SC 05/07/20 21:00 05/08/20 20:31 Lamotrigine (LaMICtal) 25 mg DAILY PO 05/07/20 09:00 05/07/20 11:47 DC 05/07/20 08:45 Lamotrigine (LaMICtal) 50 mg QHS PO 05/07/20 21:00 05/07/20 13:48 DC Lamotrigine (LaMICtal) 50 mg QHS PO 05/08/20 21:00 05/08/20 20:31 Levothyroxine Sodium (Synthroid) 125 mcg DAILY PO 05/07/20 09:00 05/09/20 08:24 Losartan Potassium (Cozaar) 100 mg DAILY PO 05/07/20 09:00 05/09/20 08:24 Magnesium Hydroxide (Milk Of Magnesia) 30 ml DAILYPRN PRN PO CONSTIPATION 05/06/20 20:15 Metformin HCl (Glucophage) 1,000 mg BID PO 05/06/20 21:00 05/09/20 08:25 Nicotine (Nicoderm Cq 21mg) 1 patch DAILY PRN TD NICOTINE WITHDRAWAL 05/06/20 20:15 Olanzapine (ZyPREXA ZYDIS) 5 mg Q4HP PRN PO AGITATION 05/06/20 20:15 05/09/20 13:37 Olanzapine (ZyPREXA) 5 mg BID PO 05/07/20 21:00 05/09/20 08:22 Olanzapine (ZyPREXA) 5 mg DAILY PO 05/07/20 09:00 05/07/20 11:47 DC 05/07/20 08:46 Omeprazole (PriLOSEC) 40 mg DAILY PO 05/07/20 09:00 05/09/20 08:22 Sitagliptin Phosphate (Januvia) 25 mg DAILY PO 05/07/20 09:00 05/09/20 08:26 Trazodone HCl (Desyrel) 150 mg QHS PO 05/06/20 21:00 05/08/20 20:31 Trazodone HCl (Desyrel) 150 mg QHSP PO 05/06/20 20:15 05/06/20 20:39 DC Allergies Coded Allergies: Sulfa (Sulfonamide Antibiotics) (Verified Allergy, Intermediate, HIVES, 12/20/19) clarithromycin (Verified Allergy, Intermediate, HIVES, 12/20/19) haloperidol (Verified Adverse Reaction, Intermediate, APHASIA, 12/20/19) ANAIS SANDOVAL NP May 09, 2020 14:51
[2020-05-09 16:40] VITALS: BP 134/64
[2020-05-09] MEDS: traZODone 50 MG TAB PO SCH (20:46)
[2020-05-09] MEDS: ATORVASTATIN 20 MG TAB PO SCH (20:47)
[2020-05-09] MEDS: lamoTRIgine 25MG TAB PO SCH (20:47)
[2020-05-10 06:15] VITALS: BP 139/66
[2020-05-10] MEDS: HumaLOG INSULIN (NovoLOG) PER UNIT SC SCH ×4 (06:46→20:18)
[2020-05-10] MEDS: LEVOTHYROXINE 125MCG TABLET (0.125MG) PO SCH (08:21)
[2020-05-10] MEDS: metFORMIN (GLUCOPHAGE) 1000 MG TABLET PO SCH ×2 (08:22→20:16)
[2020-05-10] MEDS: PILL CUTTER 1 EACH XX PRN (08:22)
[2020-05-10] MEDS: DULoxetine 30 MG CAP (CYMBALTA) PO SCH (08:23)
[2020-05-10] MEDS: LOSARTAN 50MG TABLET PO SCH (08:23)
[2020-05-10] MEDS: SITagliptin 50 MG TAB (JANUVIA) PO SCH (08:24)
[2020-05-10] MEDS: OMEPRAZOLE 20 MG CAP PO SCH (08:24)
[2020-05-10] MEDS: OLANZapine 5 MG TAB PO SCH ×2 (08:24→20:17)
--- NOTE | 2020-05-10 15:26 | MHIPNPDOC ---
[facility] Progress Note Progress Note DATE OF SERVICE: 05/10/20 HISTORY:Patient is a 59 -year-old Single, Disabled, Domiciled , female, who initially came to the ED with complaints of weakness, dizziness and confusions. She had reported that she had two recent falls at home. States, "I am really depressed and it's been gradually getting worse" She reports that she hasn't seen a psychiatrist after her last admission. States that her first 2 appointments was cancelled, and they cancelled her therapy appointment. She is seen at [facility]. She said, "All my meds, need to be increased." Because she has not seen her psychiatrist her primary care provider was only willing to give her Zyprexa 5 mg once daily and not the twice daily dosing. She reports increased depression, poor sleeping, sadness, crying all times during the day. Feels that she is lonely because her Daughter only comes when she needs to go to the store. "I can't afford my insulin, I told my doctor I need to get 70/30 insulin because [facility] is cheaper" States that her Brother (trangendered sister) use to help her but says if she moved back to [place], she will not help her. "[facility] has psychiatric and therapy on the phone - Virtual. I want to use that. Per ED Report: Pt arrived for increased weakness and dizziness, however expressed SI while here. Pt is tearful throughout entire interview. Pt reports, "I don't have to will to live anymore" She states she is tired of taking meds all the time and "still feeling awful" Pt reports 2 recent attempts via overdose and stays here at [facility]. Pt states she has been hospitalized 11 or 12 times since she was 20 and has been diagnosed with Bi-polar. Pt states that it has been "rolando lly bad" since July when her of 35 years left her. Pt recently ended up here to be closer to her daughter that lives at [place]. Pt does report that her daughter and grandchildren do bring her raymond but the "feeling of being alone" just overshadows everything. Pt feels that her medication need to be increased "or something" Pt has not seen a psychiatrist since her discharge and her PCP did not prescribe the medication as it was upon her discharge. Pt does not feel safe with her thoughts because she does have such a long Hx of overdose attempts and knows that she has the means to do so. Pt reports good appetite but very poor sleep because "my mind never stops." Pt cannot contract for safety at this time. VITAL SIGNS: See below. NEW TEST RESULTS: See below CURRENT MEDICATIONS: See below. MENTAL STATUS EXAMINATION: Patient is a 59 -year-old Single, Disabled, Domiciled , female, who initially came to the ED with complaints of weakness, dizziness and confusions and endorsed suicidal ideations while in the ED General Appearance: well kempt, disheveled, hospital scrubs/clothing Build: overweight Demeanor: engaged in the conversation Eye Contact: avoidant Activity: average Behavior: cooperative Speech: clear, reg/rate,rhythm,volume Mood: reporting less depressed, less anxious Affect: reactive Thought Process: logical/linear Thought Content (Delusions): none reported Thought Content (Other): none reported Thought Content (Aggressive): none reported Perception (Hallucinations): none reported Perception (Other): none reported Cognition (Impairment of): none reported Cognition(Intelligence Est.): average Oriented: Awake, Alert, Oriented times three Insight: good Judgment: good Psychosis: Denies DIAGNOSES: Bipolar I disorder, depressed Social Anxiety Hypertension Diabetes Mellitus Hypothyroid Obesity GERD ASSESSMENT: Reports less depression and anxiety. States that she feels ready for discharge tomorrow. Denies suicidal ideation, planning or intent. MANAGEMENT PLAN: Continue all treatment modalities. Discharge tomorrow. Patient is requesting Zyprexa Zydis for severe anxiety, have educated the patient on the medication, she is stating that this works better than other anxiolytics in the past. Have encouraged patient to consider something that is not for inpatient use, she is strongly requesting the Rx and she is aware that she may not be pre- approved for this. TIME SPENT: 25] minutes. Vital Signs Vital Signs Date Time Temp Pulse Resp B/P (MAP) Pulse Ox O2 Delivery O2 Flow Rate FiO2 05/10/20 08:23 139/66 05/10/20 06:15 98.4 71 16 98 Room Air Laboratory Data 24H Labs Laboratory Tests 2 05/09/20 16:58: Bedside Glucose (Misc Panel) 255H 05/09/20 20:49: Bedside Glucose (Misc Panel) 248H 05/10/20 06:43: Bedside Glucose (Misc Panel) 306H 05/10/20 11:52: Bedside Glucose (Misc Panel) 260H Current Medications Current Medications Medications (Trade) Dose Ordered Sig/Stacey Route PRN Reason Start Time Stop Time Status Last Admin Dose Admin Acetaminophen (Tylenol Tab) 650 mg Q6HP PRN PO HEADACHE or DISCOMFORT 05/06/20 20:15 Al Hydrox/Mg Hydrox/Simethicone (Mylanta) 30 ml Q4HP PRN PO HEARTBURN/INDIGESTION 05/06/20 20:15 Atorvastatin Calcium (Lipitor) 40 mg QHS PO 05/06/20 21:00 05/09/20 20:47 Dextrose (Dextrose 50%) 25 ml ASDIRECTED PRN IV SEE LABEL COMMENTS 05/07/20 12:45 Duloxetine HCl (Cymbalta) 30 mg QAM PO 05/07/20 09:00 05/10/20 08:23 Glucagon (Glucagon) 1 mg ASDIRECTED PRN SC SEE LABEL COMMENTS 05/07/20 12:45 Glucose (Glucose) 16 GM ASDIRECTED PRN PO SEE LABEL COMMENTS 05/07/20 12:45 Home Med (Med Rec Complete!) ASDIRECTED XX 05/06/20 19:00 05/06/20 19:06 DC Insulin Human Lispro (HumaLOG INSULIN) SEE PROTOCOL TABLE AC SC 05/07/20 12:00 05/10/20 11:55 Insulin Human Lispro (HumaLOG INSULIN) SEE PROTOCOL TABLE QHS SC 05/07/20 21:00 05/08/20 20:31 Lamotrigine (LaMICtal) 25 mg DAILY PO 05/07/20 09:00 05/07/20 11:47 DC 05/07/20 08:45 Lamotrigine (LaMICtal) 50 mg QHS PO 05/07/20 21:00 05/07/20 13:48 DC Lamotrigine (LaMICtal) 50 mg QHS PO 05/08/20 21:00 05/09/20 20:47 Levothyroxine Sodium (Synthroid) 125 mcg DAILY PO 05/07/20 09:00 05/10/20 08:21 Losartan Potassium (Cozaar) 100 mg DAILY PO 05/07/20 09:00 05/10/20 08:23 Magnesium Hydroxide (Milk Of Magnesia) 30 ml DAILYPRN PRN PO CONSTIPATION 05/06/20 20:15 Metformin HCl (Glucophage) 1,000 mg BID PO 05/06/20 21:00 05/10/20 08:22 Nicotine (Nicoderm Cq 21mg) 1 patch DAILY PRN TD NICOTINE WITHDRAWAL 05/06/20 20:15 Olanzapine (ZyPREXA ZYDIS) 5 mg Q4HP PRN PO AGITATION 05/06/20 20:15 05/09/20 13:37 Olanzapine (ZyPREXA) 5 mg BID PO 05/07/20 21:00 05/10/20 08:24 Olanzapine (ZyPREXA) 5 mg DAILY PO 05/07/20 09:00 05/07/20 11:47 DC 05/07/20 08:46 Omeprazole (PriLOSEC) 40 mg DAILY PO 05/07/20 09:00 05/10/20 08:24 Sitagliptin Phosphate (Januvia) 25 mg DAILY PO 05/07/20 09:00 05/10/20 08:24 Trazodone HCl (Desyrel) 150 mg QHS PO 05/06/20 21:00 05/09/20 20:46 Trazodone HCl (Desyrel) 150 mg QHSP PO 05/06/20 20:15 05/06/20 20:39 DC Allergies Coded Allergies: Sulfa (Sulfonamide Antibiotics) (Verified Allergy, Intermediate, HIVES, 12/20/19) clarithromycin (Verified Allergy, Intermediate, HIVES, 12/20/19) haloperidol (Verified Adverse Reaction, Intermediate, APHASIA, 12/20/19) ANAIS SANDOVAL NP May 10, 2020 15:26
[2020-05-10 18:47] VITALS: BP 143/63
[2020-05-10] MEDS: lamoTRIgine 25MG TAB PO SCH (20:16)
[2020-05-10] MEDS: ATORVASTATIN 20 MG TAB PO SCH (20:17)
[2020-05-10] MEDS: traZODone 50 MG TAB PO SCH (20:17)
[2020-05-11 06:00] VITALS: BP 136/66
[2020-05-11] MEDS: HumaLOG INSULIN (NovoLOG) PER UNIT SC SCH ×2 (07:06→11:50)
[2020-05-11] MEDS: metFORMIN (GLUCOPHAGE) 1000 MG TABLET PO SCH (08:07)
[2020-05-11] MEDS: SITagliptin 50 MG TAB (JANUVIA) PO SCH (08:09)
[2020-05-11] MEDS: LEVOTHYROXINE 125MCG TABLET (0.125MG) PO SCH (08:09)
[2020-05-11] MEDS: PILL CUTTER 1 EACH XX PRN (08:09)
[2020-05-11 08:11] VITALS: BP 149/70
[2020-05-11] MEDS: LOSARTAN 50MG TABLET PO SCH (08:11)
[2020-05-11] MEDS: OMEPRAZOLE 20 MG CAP PO SCH (08:12)
[2020-05-11] MEDS: OLANZapine 5 MG TAB PO SCH (08:12)
[2020-05-11] MEDS: DULoxetine 30 MG CAP (CYMBALTA) PO SCH (08:12)
[2020-05-11] MEDS ORDERED: OLAN5TAB PO (09:21)
[2020-05-11] MEDS ORDERED: TRAZ150T90 PO (09:21)
[2020-05-11] MEDS ORDERED: OLAN5ZYD PO (09:21)
[2020-05-11] MEDS ORDERED: LAMI25TA PO (09:21)
[2020-05-11] MEDS ORDERED: DULO30CA9 PO (09:21)
--- NOTE | 2020-05-11 11:18 | MHDSPDOC ---
[facility] Discharge Summary Discharge Summary DATE OF ADMISSION: May 06, 2020 at 20:49 DATE OF DISCHARGE: May 11, 2020 at 1103 DISCHARGE DIAGNOSES: Bipolar I disorder, depressed Social Anxiety Hypertension Diabetes Mellitus Hypothyroid Obesity GERD REASON FOR ADMISSION: Patient is a 59 -year-old Single, Disabled, Domiciled , female, who initially came to the ED with complaints of weakness, dizziness and confusions. She had reported that she had two recent falls at home. States, "I am really depressed and it's been gradually getting worse" She reports that she hasn't seen a psychiatrist after her last admission. States that her first 2 appointments was cancelled, and they cancelled her therapy appointment. She is seen at [facility]. She said, "All my meds, need to be increased." Because she has not seen her psychiatrist her primary care provider was only willing to give her Zyprexa 5 mg once daily and not the twice daily dosing. She reports increased depression, poor sleeping, sadness, crying all times during the day. Feels that she is lonely because her Daughter only comes when she needs to go to the store. "I can't afford my insulin, I told my doctor I need to get 70/30 insulin because [facility] is cheaper" States that her Brother (trangendered sister) use to help her but s ays if she moved back to [place], she will not help her. "[facility] has psychiatric and therapy on the phone - Virtual. I want to use that. Per ED Report: Pt arrived for increased weakness and dizziness, however expressed SI while here. Pt is tearful throughout entire interview. Pt reports, "I don't have to will to live anymore" She states she is tired of taking meds all the time and "still feeling awful" Pt reports 2 recent attempts via overdose and stays here at [facility]. Pt states she has been hospitalized 11 or 12 times since she was 20 and has been diagnosed with Bi-polar. Pt states that it has been "really bad" since July when her of 35 years left her. Pt recently ended up here to be closer to her daughter that lives at [place]. Pt does report t hat her daughter and grandchildren do bring her raymond but the "feeling of being alone" just overshadows everything. Pt feels that her medication need to be increased "or something" Pt has not seen a psychiatrist since her discharge and her PCP did not prescribe the medication as it was upon her discharge. Pt does not feel safe with her thoughts because she does have such a long Hx of overdose attempts and knows that she has the means to do so. Pt reports good appetite but very poor sleep because "my mind never stops." Pt cannot contract for safety at this time. CONSULTANTS INVOLVED: See Medical H + P by Hospitalist TREATMENT AND PROGRESS ON THE UNIT: Patient was admitted to the [facility] on a legal status he was afforded the following treatment modalities: 1) Individual Therapy 2) Group Therapy 3) Medication Management 4) Milieu Therapy 5) Safe Environment HOSPITAL COURSE: Patient was admitted to [facility] on a legal status. This is one of multiple admission for this patient, she has been admitted to [facility], has had ECT treatment and this is her 3rd admission to [facility] since Summer 2019. Patient's from her last summer and this was the catalyst for much of her admissions to [facility]. On this occasion patient initially had complaints of weakness, confusion and dizziness and with vague suicidal ideations, stating "I don't have the will to live anymore." Much of her stressors stem from poor finances due to divorce, termination of marriage, move from [place] where patient is from to [place] where one daughter lives and poor supports and lack of services which she once had while living in [place]. Patient was initially isolative and withdrawn and depressed. Patient's medications were restarted. Lamictal was increased to 50 mg daily. Patient had only been taking Olanzapine 5 mg daily but she was discharged on 5 mg twice daily on her last discharge. This was increased to twice daily. She improved with these changes and was more visible on the unit, had attended groups and reported that she had increase in pleasant mood. She requested to be discharged today and met criteria by the treatment team for discharge. DISCHARGE ASSESSMENT: In today's interview, patient is alert and oriented, pts dress is appropriate. Hygiene and grooming is well-kempt. Smiles on approach and is pleasant and engaged in the interview. Denies depression and anxiety. Denies suicidal and homicidal ideation, planning or intent. Denies and is not observed with damir, psychotic symptoms of delusions, bizarre thinking, obsessions, paranoia, ruminations illogical thoughts, flight of ideas or having poor insight and judgement. Patient has normal mentation, declines further hospitalization on a voluntary status and meets criteria for discharge today. Patient encouraged to return to hospital if his symptoms worsen or change and encouraged to call unit if he/she/they needs to speak to provider for questions regarding medications or care. MENTAL STATUS EXAMINATION ON DISCHARGE: Patient is a 59 -year-old Single, Disabled, Domiciled , female, who initially came to the ED with complaints of weakness, dizziness and confusions and suicidal thoughts. Speech: Is fluid, conversant, normal rate, tone and volume Language skills are intact Thought processes including: linear and goal oriented Thought content: denies depression and anxiety. Denies suicidal/homicidal ideation, planning or intent. Abstract reasoning, and computation: fair Description of associations: denies, none observed Description of abnormal or psychotic thoughts: denies, none observed. Judgment: fair Insight: fair Orientation: alert and oriented to person, place, time and situation Recent and remote memory: intact Attention span and concentration: good Language: expansive Fund of knowledge: average Mood: Euthymic Mood Affect: reactive MEDICATIONS ON DISCHARGE: See Medication Reconciliation PLAN/FOLLOWUP ARRANGEMENTS: [facility], patient would benefit from services utilizing telepsychiatry as transportation is a barrier The amount of time spent in the coordination of care for this patient was approximately 25 minutes. ETOH/Disorder Med Rx ETOH/DRUG DISORDER RX: N/A Vital Signs/I&Os Vital Signs Date Time Temp Pulse Resp B/P (MAP) Pulse Ox O2 Delivery O2 Flow Rate FiO2 05/11/20 08:11 149/70 05/11/20 06:00 97.3 83 20 98 05/10/20 06:15 Room Air Laboratory Data Labs 24H Laboratory Tests 2 05/10/20 11:52: Bedside Glucose (Misc Panel) 260H 05/10/20 16:37: Bedside Glucose (Misc Panel) 279H 05/10/20 20:12: Bedside Glucose (Misc Panel) 365H 05/11/20 06:34: Bedside Glucose (Misc Panel) 275H Medications Scheduled Atorvastatin Calcium (Atorvastatin Calcium) 40 Mg Tablet, 40 MG PO QHS, (Reported) Duloxetine Hcl (Duloxetine HCl) 30 Mg Capsule.dr, 30 MG PO DAILY for Depression, #7 Insulin NPH Hum/Reg Insulin Hm (Humulin 70-30 Vial) 100 Unit/1 Ml Vial, 15 UNITS SC BID, (Reported) Lamotrigine (Lamictal) 25 Mg Tablet, 50 MG PO QHS for Mood, #14 Take two tablets at bedtime Levothyroxine Sodium (Levothyroxine Sodium) 125 Mcg Tablet, 125 MCG DAILY for ., (Reported) Losartan Potassium (Losartan Potassium) 100 Mg Tablet, 100 MG PO DAILY for ., (Reported) Metformin HCl (Metformin HCl) 1,000 Mg Tablet, 1,000 MG PO BID, (Reported) Olanzapine (Olanzapine) 5 Mg Tablet, 5 MG PO BID for Mood, #14 Omeprazole (Omeprazole) 40 Mg Capsule.dr, 40 MG DAILY for ., (Reported) Sitagliptin Phosphate (Januvia) 25 Mg Tablet, 25 MG PO DAILY, (Reported) Trazodone HCl (Trazodone HCl) 150 Mg Tablet, 150 MG PO QHS for Insomnia, #7 Scheduled PRN Acetaminophen (Acetaminophen) 500 Mg Tablet, 500 MG PO Q6H PRN for PAIN, (Reported) Olanzapine (Olanzapine Odt) 5 Mg Tab.rapdis, 5 MG PO BIDP PRN for AGITATION, #14 Allergies Coded Allergies: Sulfa (Sulfonamide Antibiotics) (Verified Allergy, Intermediate, HIVES, 12/20/19) clarithromycin (Verified Allergy, Intermediate, HIVES, 12/20/19) haloperidol (Verified Adverse Reaction, Intermediate, APHASIA, 12/20/19) ANAIS SANDOVAL NP May 11, 2020 11:14
== END 2020-05-11 13:22 | disposition home or self-care (01) | DRG 885 ==
LOC: M ED 15:22 → M ED INP 20:49 → M PSY 23:16
PROVIDERS: ADMIT Psychiatry & Neurology Psychiatry; ATTEND Psychiatry & Neurology Psychiatry
DX: F31.30 Bipolar disorder, current episode depressed, mild or moderate severity, unspecified (principal); R45.851 Suicidal ideations; E03.9 Hypothyroidism, unspecified; E11.9 Type 2 diabetes mellitus without complications; E66.9 Obesity, unspecified; K21.9 Gastro-esophageal reflux disease without esophagitis; F41.9 Anxiety disorder, unspecified; Z79.899 Other long term (current) drug therapy; Z79.4 Long term (current) use of insulin; Z88.2 Allergy status to sulfonamides; Z88.8 Allergy status to other drugs, medicaments and biological substances; G47.33 Obstructive sleep apnea (adult) (pediatric); Z68.35 Body mass index [BMI] 35.0-35.9, adult

== ENCOUNTER → 2020-06-28 | Outpatient (REF) | payer OTHER ==
[~2020-06-28] MED LIST changes: +BUPR-332 PO; +HUMU70IN SC; +JANU25TA PO; +METF10004 PO; +OLAN5ZYD PO; +TRAZ150T90 PO
[2020-06-28 11:02] LABS: HEMOGLOBIN A1c 11.4 %
[2020-06-28 11:24] LABS: BLOOD UREA NITROGEN 14 MG/DL (7-18); CALCIUM LEVEL 9.1 MG/DL (8.5-10.1); CARBON DIOXIDE LEVEL 26 MEQ/L (21-32); CHLORIDE LEVEL 106 MEQ/L (98-107); CHOLESTEROL LEVEL 141 MG/DL (<200); CHOLESTEROL RISK RATIO 3.525 (<5); CREATININE FOR GFR 0.99 MG/DL (0.55-1.30); FREE T4 1.23 NG/DL (0.76-1.46); GLOMERULAR FILTRATION RATE > 60.0 (>51); GLUCOSE, FASTING 371 MG/DL (70-100); HDL CHOLESTEROL 40 MG/DL (>40); LDL CHOLESTEROL 66 MG/DL (<100); MAU/CREAT RATIO 71.8 MCG/MG (0.0-30.0); NON-HDL-C 101 MG/DL; POTASSIUM SERUM 4.2 MEQ/L (3.5-5.1); SODIUM LEVEL 138 MEQ/L (136-145); TRIGLYCERIDES LEVEL 173 MG/DL (<150)
== END ==
LOC: M PLALAB 08:37
PROVIDERS: ATTEND Physician Assistant
DX: E03.9 Hypothyroidism, unspecified (principal); E11.9 Type 2 diabetes mellitus without complications; E78.2 Mixed hyperlipidemia